=== PATIENT | female | born 1955 | race Caucasian/White ===

== ENCOUNTER 2023-02-06 08:22 | Outpatient (REF) | payer MEDICARE, SELFPAY | END 2023-02-06 08:23 | disposition home or self-care (01) | LOC: HO.HOSX 08:22 | PROVIDERS: Visit Provider Orthopaedic Surgery | DX: Z13.89 Encounter for screening for other disorder (principal) ==

== ENCOUNTER 2023-06-17 08:06 | Outpatient (REF) | payer MEDICARE, SELFPAY | END 2023-06-17 08:07 | disposition home or self-care (01) | LOC: HO.HOSX 08:06 | PROVIDERS: Visit Provider Orthopaedic Surgery | DX: Z13.89 Encounter for screening for other disorder (principal) ==

== ENCOUNTER 2023-07-22 14:31 | Outpatient (AMB) | payer MEDICARE, SELFPAY ==
--- NOTE | 2023-07-22 14:34 | MHC.OFFVIS ---
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 The patient did undergo right shoulder surgery approximately 2 years ago. She reports weakness when lifting her right hand above shoulder height. She has had injections in the past which gave her minimal relief. She has also done physical therapy exercises which aggravated her pain. She has tried Tylenol and anti-inflammatory medicines which gave her minimal relief. Allergies No Known Allergies Allergy (Verified 07/22/23 14:54) Medication List - Last Reconciled 07/23/23 by Zane Santo MD albuterol sulfate 90 mcg/actuation inhalation atorvastatin 40 mg PO DAILY fluticasone propionate 50 mcg/actuation sprays intranasal hydrochlorothiazide 25 mg PO DAILY lamotrigine mg PO lisinopril 10 mg PO DAILY methylphenidate HCl 20 mg PO TID omeprazole 20 mg PO DAILY ropinirole mg PO trazodone 150 - 300 mg PO BEDTIME PRN PFSH Surgical History History of hip surgery Hx of left knee surgery Hx of shoulder surgery Hx of shoulder surgery (Unknown) Social History (Updated 07/22/23 @ 15:00 by Lisa Parrish CMA) Patient Tobacco Use Status: Never used Tobacco Current occupational status: retired Current occupation: Left hand dominate Physical Exam Vital Signs: BMI result Body Mass Index 27.3 Const Other: Well-nourished well-developed very friendly female awake alert and oriented x3 in no acute distress Extrem Other: Bilateral upper extremity examination shows good capillary refill, no skin lesions noted, normal sensation light touch Right shoulder examination shows decreased range of motion when compared to her left shoulder, 4+/5 strength with supraspinatus testing, positive impingement signs, tenderness over her acromioclavicular joint, no instability Assessment & Plan Assessment & Plan (1) Right shoulder pain: Code(s): M25.511 - Pain in right shoulder Plan Ms. Albert presents with right shoulder pain and weakness possibly due to a full-thickness rotator cuff tear. Thus, I will send the patient for an MRI of her right shoulder to further evaluate the status of her rotator cuff tendons. I will see her back once the MRI is completed to discuss the findings and treatment options. She will continue with her range of motion exercises in the meantime to prevent stiffness. I spent 22 minutes in reviewing the patient's records and imaging studies, seeing the patient and documenting in the medical record. Orders: Orders XR shoulder RT min 2V 07/22/23 M25.511 - Pain in right shoulder MR shoulder RT wo con Today M75.101 - Unspecified rotator cuff tear or rupture of right shoulder, not specified as traumatic Coding Level of Care Code New Pt Level 2 (33941) Diagnoses Right shoulder pain M25.511
[2023-07-22 14:51] VITALS: BMI 27.3
== END 2023-07-22 15:10 | disposition home or self-care (01) ==
LOC: HO.HOS 14:31
PROVIDERS: Visit Provider Orthopaedic Surgery
DX: M25.511 Pain in right shoulder (principal)
CPT/HCPCS: 99202; 99212

== ENCOUNTER 2023-07-22 15:14 | Outpatient (REF) | payer MEDICARE, OTHER, SELFPAY ==
--- NOTE | ~2023-07-22 | XR_ITS ---
EXAMINATION: XR SHOULDER, RIGHT CLINICAL INFORMATION: Pain in right shoulder. COMPARISON: None available. TECHNIQUE: 2 views of the right shoulder. FINDINGS: Degenerative changes in the imaged upper thoracic spine. Hypertrophic spurring along the inferomedial aspect of the humeral head. Narrowing of the subacromial space. Acromioclavicular joint measures approximately 11 mm in width. XR/XR shoulder RT min 2V IMPRESSION: Hypertrophic spurring along the inferomedial aspect of the humeral head. Narrowing of the subacromial space.
== END 2023-07-22 15:15 | disposition home or self-care (01) ==
LOC: HO.HOSX 15:14
PROVIDERS: Visit Provider Orthopaedic Surgery
DX: M25.511 Pain in right shoulder (principal)
CPT/HCPCS: 73030; 99202

== ENCOUNTER 2023-08-07 13:16 | Outpatient (REF) | payer MEDICARE, OTHER, SELFPAY ==
--- NOTE | ~2023-08-07 | XR_ITS ---
EXAMINATION: XR KNEE, RIGHT CLINICAL INFORMATION: Pain. COMPARISON: None available. TECHNIQUE: Frontal, lateral and axial views of the right knee are submitted. FINDINGS: Bony alignment and mineralization are normal. The lateral and medial joint space compartment are well-maintained and show mild peripheral osteophyte formation. There is mild irregularity of the articular surfaces of the lateral and medial joint space compartments. There is moderate narrowing of the patellofemoral compartment, most pronounced laterally. There is peripheral osteophyte formation of the patellofemoral compartment. There is chondrocalcinosis. No fracture or dislocation is seen. There is a very small right knee joint effusion. No foreign body is seen. XR/XR knee RT 3V IMPRESSION: 1. There is mild osteoarthritic change of the lateral and medial joint to the right knee, and moderate osteoarthritic change is seen of the patellofemoral compartment. 2. There is a very small right knee joint effusion. 3. There is chondrocalcinosis, which can be associated with gout, CPPD or hypercalcemia.
== END 2023-08-07 13:17 | disposition home or self-care (01) ==
LOC: HO.HOSX 13:16
PROVIDERS: Visit Provider Orthopaedic Surgery
DX: M25.561 Pain in right knee (principal)
CPT/HCPCS: 20610; 73562; 99212; J1010; J1020

== ENCOUNTER 2023-08-07 13:16 | Outpatient (AMB) | payer MEDICARE, OTHER, SELFPAY ==
[2023-08-07 13:17] VITALS: BMI 27.3
--- NOTE | 2023-08-07 13:17 | MHC.OFFVIS ---
Intake Vital Signs 08/07/23 13:17 Height 5 ft 5 in Weight 164 lb BMI 27.3 Intake Visit Reasons: Newprob-Right knee pain-interested in injection Intake Note: Stephanie is a 68 year old female who presents with Right knee pain. Patient reports it has been going on for about 2 weeks and is a 5 on the 1-10 pain scale. She states she using Tylenol for arthritis for the pain and has had surgery on her Right knee in 1971, and denies injury and injections. She would like to have a Right knee injection today. She denies any locking or giving way. Allergies No Known Allergies Allergy (Verified 08/07/23 13:41) Medication List - Last Reconciled 08/08/23 by Zane Santo MD albuterol sulfate 90 mcg/actuation inhalation atorvastatin 40 mg PO DAILY fluticasone propionate 50 mcg/actuation sprays intranasal hydrochlorothiazide 25 mg PO DAILY lamotrigine mg PO lisinopril 10 mg PO DAILY methylphenidate HCl 20 mg PO TID omeprazole 20 mg PO DAILY ropinirole mg PO trazodone 150 - 300 mg PO BEDTIME PRN PFSH Surgical History History of hip surgery Hx of left knee surgery Hx of shoulder surgery Hx of shoulder surgery (Unknown) Social History Patient Tobacco Use Status: Never used Tobacco Current occupational status: retired Current occupation: Left hand dominate Physical Exam Vital Signs: BMI result Body Mass Index 27.3 Const Other: Well-nourished well-developed very friendly female awake alert and oriented x3 in no acute distress Extrem Other: Bilateral lower extremity examination shows good capillary refill, no skin lesions noted, normal sensation light touch Right knee examination shows a minimal effusion, mild crepitus with range of motion, discomfort with range of motion, no instability Office Procedures Joint Injection/Drain Joint Injection/Drain Primary Site: right knee Prep: site was prepped using aseptic technique Injected: 40 mg of, DepoMedrol and 1% plain lidocaine Procedure: The patient tolerated the procedure well Coding 10905 - Large joint Procedure code (CPT) selection complete Results Reviewed Results Reviewed: X-rays of the patient's right knee show mild to moderate diffuse joint space narrowing, no acute bony abnormalities Assessment & Plan Assessment & Plan (1) Right knee pain: Code(s): M25.561 - Pain in right knee Plan Ms. Albert presents with right knee pain due to degenerative joint disease. I had a lengthy discussion with the patient regarding the treatment options. She wishes to hold off on surgery for as long as possible. I agree with this plan. The risks and benefits of a right knee cortisone injection were discussed at length with the patient. The patient wished to proceed. She tolerated the injection well. She will continue with her activity modifications. She will follow up with me on an as-needed basis should her symptoms not plateau at an unacceptable level over the next few months. Feel free to call me at any time should questions regarding her orthopedic management arise. I spent 22 minutes in reviewing the patient's records and imaging studies, seeing the patient and documenting in the medical record. Orders: Orders XR knee RT 3V 08/07/23 M25.561 - Pain in right knee AMB Joint Injection/Aspiration 08/07/23 M25.561 - Pain in right knee Coding Level of Care Code Est Pt Level 2 (02627) Diagnoses Right knee pain M25.561 CPT Codes Coding - 83501 Large joint: 28805 - Large joint ([id number])
== END 2023-08-07 14:05 | disposition home or self-care (01) ==
PROVIDERS: Visit Provider Orthopaedic Surgery
DX: M25.561 Pain in right knee (principal)
CPT/HCPCS: 20610; 99213

== ENCOUNTER 2024-02-26 12:27 | Outpatient (REF) | payer MEDICARE, OTHER, SELFPAY | END 2024-02-26 12:28 | disposition home or self-care (01) | LOC: HO.HOSX 12:27 | PROVIDERS: Visit Provider Orthopaedic Surgery | DX: Z13.89 Encounter for screening for other disorder (principal) ==

== ENCOUNTER 2024-06-01 07:50 | Outpatient (AMB) | payer MEDICARE, OTHER, SELFPAY ==
--- NOTE | 2024-06-01 07:53 | MHC.OFFVIS ---
Intake Visit Reasons: INJ- rt knee injection last 08/07/23 Intake Note: Stephanie is a 69 year old female who presents today for a right knee steroid injection. Patient reports her last injection given 08/07/23 provided relief. The patient states that she has continued low back pain. She recently had her 3rd epidural injection. She states that she got minimal relief from the injection. She has started taking gabapentin once again. She takes the gabapentin twice a day. Allergies No Known Allergies Allergy (Verified 06/01/24 07:58) Medication List - Last Reconciled 06/01/24 by Zane Santo MD albuterol sulfate 90 mcg/actuation inhalation atorvastatin 40 mg PO DAILY fluticasone propionate 50 mcg/actuation sprays intranasal hydrochlorothiazide 25 mg PO DAILY lamotrigine mg PO lisinopril 10 mg PO DAILY methylphenidate HCl 20 mg PO TID omeprazole 20 mg PO DAILY ropinirole mg PO trazodone 150 - 300 mg PO BEDTIME PRN PFSH Surgical History History of hip surgery Hx of left knee surgery Hx of shoulder surgery Hx of shoulder surgery (Unknown) Social History Patient Tobacco Use Status: Never used Tobacco Current occupational status: retired Current occupation: Left hand dominate Physical Exam Extrem Other: Right knee examination shows a minimal effusion, mild crepitus with range of motion, negative Shola's test, no instability Office Procedures AMB Joint Injection/Aspiration Joint Injection/Aspiration Primary Site: right knee Injected: 40 mg of, DepoMedrol and 1% plain lidocaine Procedure: The patient tolerated the procedure well Coding 86514 - Large joint Procedure code (CPT) selection complete Assessment & Plan Assessment & Plan (1) Arthritis of right knee: Code(s): M17.11 - Unilateral primary osteoarthritis, right knee Category: Medical Plan Ms. Albert presents with right knee pain due to degenerative joint disease. The risks and benefits of a right knee cortisone injection were discussed at length with the patient. The patient wished to proceed. She tolerated the injection well. She will continue with her activity modifications. She wishes to hold off on surgery if at all possible. I agree with this plan. She will contact me prior to her follow-up appointment in 3 months should any questions or concerns arise. I spent 20 minutes in reviewing the patient's records and imaging studies, seeing the patient and documenting in the medical record. Orders: Orders AMB Joint Injection/Aspiration Today M17.11 - Unilateral primary osteoarthritis, right knee Coding Level of Care Code Est Pt Level 3 (08223) Complex EM visit Add On G2211 Diagnoses Arthritis of right knee M17.11 CPT Codes Coding - 02131 Large joint: 32818 - Large joint ([id number])
--- OUTSIDE RECORDS SUMMARY | 2024-06-01 07:53 | XMS_ITS | Clinical Summary ---
Author Organization [facility] Address [address] [place] [address] Care Team Providers Care Outdoor Studies Director Name Role Phone Paige Zafar Primary Care Provider + [phone] Allergies No known active allergies Medications Medication Sig Dispensed Refills Start Date End Date Status PROAIR HFA 108 (90 BASE) MCG/ACT inhaler 0 12/25/2016 Active gabapentin (NEURONTIN) 300 MG capsule 0 10/08/2016 Active hydrochlorothiazid e (HYDRODIURIL) tablet 25 mg 0 12/31/2016 Active lisinopril (PRINIVIL,ZESTRIL) tablet 10 mg 0 10/23/2016 Active LORazepam (ATIVAN) 1 MG tablet Take 1 mg by mouth 3 (three) times a day as needed. for anxiety 2 12/20/2016 Active traZODone (DESYREL) 150 MG tablet 0 10/23/2016 Active atorvastatin (LIPITOR) tablet 40 mg atorvastatin 40 mg tablet 0 Active cloNIDine (CATAPRES) tablet 0.1 mg clonidine HCl 0.1 mg tablet 0 Active fluticasone (FLONASE) 50 MCG/ACT nasal spray fluticasone 50 mcg/actuation nasal spray,suspension 0 Active valACYclovir (VALTREX) 1000 MG tablet valacyclovir 1 gram tablet Take 2 tablets every 12 hours by oral route as directed for 1 day. 0 Active Omeprazole 20 MG TBEC omeprazole 20 mg capsule,delayed release TAKE 2 CAPSULE(S) EVERY DAY BY ORAL ROUTE IN THE MORNING. 0 Active methylphenidate (RITALIN) 20 MG tablet TAKE 1/2 TO 1 TABLET BY MOUTH EVERY MORNING. TAKE 1/2 TO 1 TABLET BY MOUTH AT 1PM IF NEEDED FOR ADHD 0 09/28/2019 Active rOPINIRole (REQUIP) 2 MG tablet TAKE 1 TABLET IN AM AND 2 TABLETS EVENING BY MOUTH 0 09/29/2019 Active amoxicillin (AMOXIL) 500 MG tablet Take 4 tabs one hour prior to dental appointment or colonoscopy 20 tablet 3 10/03/2021 Active Additional Information Patient not taking.Reason: only prior to dental work, Reported on 04/04/2022 venlafaxine (EFFEXOR-XR) 150 MG 24 hr capsule 0 12/31/2021 Active celecoxib (CeleBREX) 200 MG capsule Take 1 capsule (200 mg total) by mouth daily. 0 06/12/2022 Active methocarbamol (ROBAXIN) 750 MG tablet Take 1 tablet (750 mg total) by mouth every 8 (eight) hours as needed. for spasm 0 06/12/2022 Active oxyCODONE (ROXICODONE) 5 MG immediate release tablet 1-2 tabs p.o. every 6-8 hours as needed for pain. 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 Chronic left shoulder pain 07/04/2017 Left hip pain 02/04/2017 Family History Medical History Relation Name Comments Heart disease Mother Hypertension Mother Relation Name Status Comments Mother Social History Tobacco Use Types Packs/Day Years Used Date Smoking Tobacco: Former Tobacco Cessation:Counseling Given: Not Answered Alcohol Use Standard Drinks/Week Comments Yes 0 (1 standard drink = 0.6 oz pur e alcohol) Sex and Gender Information Value Date Recorded Sex Assigned at Female 02/12/2022 2:23 PM EDT Gender Identity Female 02/12/2022 2:23 PM EDT Sexual Orientation Not on file Job Start Date Occupation Industry Not on file Not on file Not on file Last Filed Vital Signs Vital Sign Reading Time Taken Comments Blood Pressure 160/84 04/04/2022 8:45 AM EST Pulse 96 04/04/2022 8:45 AM EST Temperature - - Respiratory Rate - - Oxygen Saturation - - Inhaled Oxygen Concentration - - Weight 79.2 kg (174 lb 9.6 oz) 04/04/2022 8:45 A M EST Height 162.6 cm (5' 4 ) 04/04/2022 8:45 AM EST Body Mass Index 29.97 04/04/2022 8:45 AM EST Plan of Treatment Health Maintenance Due Date Last Done Comments Hepatitis C Screening 1957 Depression Screening 1969 BMI Counseling 1975 Preventative Health Evaluation 1975 Colon Cancer Screening (Colonoscopy) 2002 Breast Cancer Screening (Mammogram) 2007 Fall Risk Assessment 2022 Osteoporosis Screening (DEXA Scan) 2022 COVID-19 Vaccine ( season) 2024 02/04/2021, 07/23/2020, 07/01/2020 Influenza Vaccine (#1) 2024 , 02/25/2020, 01/01/2019, Additional history exists RSV Adult > 60+ Yrs or (1 - 1-dose 75+ series) 2032 DTap / Tdap / Td (3 - Td or Tdap) 07/18/2032 07/18/2022, 12/14/2012 Shingrix-Zoster Vaccine Completed 02/25/2020, 01/01 Pneumococcal Vaccine Completed 07/18/2022, 01/22/20 17 Hepatitis B Vaccines Aged Out No long er eligible based on patient's age to complete this topic RSV Ped < 20 months Aged Out No longe r eligible based on patient's age to complete this topic Care Teams Outdoor Studies Director Relationship Specialty Start Date End Date Paige Zafar [place] [address] [address] PCP - General Physician Farm Tractor Operator 12/17/16
--- OUTSIDE RECORDS SUMMARY | 2024-06-01 07:53 | XMS_ITS | Data Portability ---
Author Organization [facility], [address] Address [address] [place] [address] Assessment No assessment recorded. Plan of Treatment Reminders Order Date Submit Date Provider Last Modified By Organization Details Last Modified Time Details Appointments None recorded. Lab None recorded. Referral None recorded. Procedures None recorded. Surgeries None recorded. Imaging None recorded. Medication Orders Allergy Relief (fluticason e) 50 mcg/actuati on nasal spray,suspe nsion [address] [id number] [address], [place], [address], 3 19:21:32 prednisone 20 mg tablet [address] [id number], [address], [place], [address], 3 19:21:31 albuterol sulfate HFA 90 mcg/actuati on aerosol inhaler [address] [id number] [address], [place], [address], 3 19:21:32 benzonatate 100 mg capsule [address] [id number] [address], [place], [address], 3 19:21:32 Patient TargetsNo targets recorded. Patient Instructions Encounter Date Encounter Id Patient Instructions Last Modified By Organization Details Last Modified Time 12/22/2022 [id number] cough: care instructions [email or web address] Not available 12/22/2022 19:21:28 Patient instruct ed on worsening signs and symptoms that would require further evaluation by ED or PCP such as fever of 101.0 or greater, congestion accompanied with coughing, vomiting, diarrhea, abdominal pain, decreased oral intake, lethargy, or other new symptom(s) experienced not discussed during this visit. Use humidifier and ensure good hydration. If you experience new concerning symptoms, shortness of breath, respiratory distress, or chest pain go to the ER. Use the medications prescribed. May use Decongestants if tolerated and no history of elevated blood pressure or Diabetes. Use saline nasal saline and Flonase daily for1 week. You may use tylenol for pain/fever. Do not take prednisone with Ibuprofen. Get some extra rest. When should you call for help? Call anytime you think you may need emergency care. For example, call if: You have severe trouble breathing. Call your doctor now or seek immediate medical care if: You have new or worse trouble breathing. You cough up dark brown or bloody mucus (sputum). You have a new or higher fever. You have a new rash. Watch closely for changes in your health, and be sure to contact your doctor if: You cough more deeply or more often, especially if you notice more mucus or a change in the color of your mucus. You are not getting better as expected. [email or web address] Not available 12/22/2022 19:21:26 Reason for Referral None Reported. Problems Name Problem SNOMED Code Status Onset Date Resolution Date Notes Provider Name and Address Organization Details Recorded Time Hyperlipidemia 52804825 Active 2022 ADIA porter PA - [facility] 3 18:37:29 Hypertensive disorder 19143590 Active 2022 ADIA porter PA - [facility] 3 18:37:34 Restless legs 13498544 Active 2022 ADIA porter PA - [facility] 3 18:37:39 Exercise-induce d asthma 59549486 Active 2022 ADIA porter PA - [facility] 3 18:37:55 Problem Notes None recorded. Procedures Surgical History Date Name Laterality Status Provider Name and Address Organization Details Recorded Time procedure on knee completed ADIA BURCH PA - [facility] 12/22/2022 18:38:42 [facility] 12/22/2022 18:38:52 procedure on shoulder completed TRENT BURCH PA - [facility] 12/22/2022 18:39:11 Imaging Results None recorded. Procedure Notes None recorded. Medical Equipment None Reported. Allergies No known drug allergies Medications Name Sig Start Date Stop Date Status Note LastModified by Organization Details LastModified Time prednisone 20 mg tablet Take 2 tablets every day by oral route in the morning for 3 days. 2022 active Not Available Not Available Not Avai lable benzonatate 100 mg capsule Take 1 capsule 3 times a day by oral route as needed for 7 days. 2022 active Not Available Not Available Not Avai lable albuterol sulfate HFA 90 mcg/actuatio n aerosol inhaler INHALE 2 PUFFS EVERY 4 TO 6 HOURS NEEDED FOR 10 DAYS active Not Available Not Available No t Available fluticasone propionate 50 mcg/actuatio n nasal spray,suspen emmy SPRAY 1 SPRAY INTO EACH NOSTRIL EVERY DAY DIRECTED FOR 30 DAYS FOR ALLERGY SYMPTOMS active Not Available Not Available No t Available atorvastatin active Not Available Not Available Not Available ropinirole active Not Available Not Av ailable Not Available hydrochlorot hiazide active Not Available Not Available Not Available lisinopril active Not Available Not Av ailable Not Available albuterol sulfate 90 mcg/actuatio n breath activated powder inhaler INHALE 2 PUFFS (180 MCG) BY INHALATION ROUTE EVERY 4-6 HOURS NEEDED active Not Available Not Available No t Available Vitals Date Recorded Body height Provider Name an d Address Organization Details Last Updated DateTime 12/22/2022 167.64 cm ADIARACHEL KRISHNAMURTHYEY PA - [facility] 0 12/22/2022 18:36:26 Date Recorded Body mass index (BMI) Body weight Provider Name and Address Organization Details Last Updated DateTime 12/22/2022 25.5 kg/m2 89317.59 g ADIARACHEL KRISHNAMURTHYEY PA - [facility] 12/22/2022 18:36:29 Date Recorded Pain severity - 0-10 verbal numeric rating [Score] - Reported Provider Name and Address Organization Details Last Updated DateTime 12/22/2022 0 ADIA BURCH PA - [facility] 0 12/22/2022 18:36:33 Date Recorded Respiratory rate Provider Name a nd Address Organization Details Last Updated DateTime 12/22/2022 17 /min ADIA BURCH PA - [facility] 0 12/22/2022 18:39:55 Date Recorded Oxygen saturation Oxygen saturation in Arterial blood by Pulse oximetry Provider Name and Address Organization Details Last Updated DateTime 12/22/2022 100 % 100 % ADAI BURCH PA - [facility] 12/22/2022 18:40:48 Date Recorded Heart rate Provider Name an d Address Organization Details Last Updated DateTime 12/22/2022 76 /min ADIA BURCH PA - [facility] 0 12/22/2022 18:40:04 Date Recorded Body temperature Provider Name a nd Address Organization Details Last Updated DateTime 12/22/2022 97.9 [degF] ADIA BURCH PA - [facility] 12/22/2022 18:40:46 Date Recorded Systolic blood pressure Diastolic blood pressure Provider Name and Address Organization Details Last Updated DateTime 12/22/2022 153 mm[Hg] 89 mm[Hg] ADIA BURCH PA - [facility] 12/22/2022 18:40:11 Social History Question Answer Notes LastModified by Organizat ion Details LastModified Time Tobacco Smoking Status Former Smoker ADIA porter, PA - [facility] 12/22/2022 18:38:14 What Is Your Level Of Alcohol Consumption? Occasional [email or web address] Information not available 12/22/2022 When Did You Quit Smoking? 16+yearssincel astcigarette [email or web address] Information not available 12/22/2022 Do You Use Any Illicit Or Recreational Drugs? No [email or web address] Information not available 12/22/2022 Have You Recently Traveled Abroad? No [email or web address] Information not available 12/22/2022 Sex: Unknown Functional Status None recorded. Mental Status None recorded. Family History Nothing Reported. Medical History No medical history recorded. Gynecological History Statement/Question Response Is there any chance of ? No Obstetrics History GPAL:G 0 P 0 0 0 0 Past Encounters Encounter ID Performer Location Encounter Start Date Encounter Closed Date Diagnosis/Indication Diagnosis SNOMED-CT Code Diagnosis ICD10 Code Diagnosis Note [id number] [address] [place], [place] [address] 2018 11:32:21 2018 12:21:38 [id number] [address] [facility] [place] [place] [address] 04/13/2018 15:55:10 04/13/2018 17:12:50 [id number] [address] [facility] [place] [place] [address] 02/21/2017 15:35:25 02/21/2017 16:51:22 [id number] [address] [facility] [place] [place] [address] 04/16/2015 13:47:23 04/16/2015 15:39:47 [id number] [address] [facility] [place] [place] [address] 05/06/2018 16:43:14 05/06/2018 17:35:59 [id number] [address] [facility] [place] [place] [address] 03/17/2021 17:48:47 03/17/2021 18:50:23 [id number] [facility] [place] [place] [address] 09/02/2019 11:08:21 09/02/2019 11:52:06 [id number] [address] [facility] [place] [place] [address] 06/01/2018 08:12:01 06/01/2018 09:52:26 [id number] [address] [facility] [place] [place] [address] 10/05/2016 19:26:21 10/05/2016 19:42:32 [id number] [address] [facility] [place] [place] [address] 12/05/2018 15:48:07 12/05/2018 17:08:43 [id number] [address] [place] [address] 06/09/2015 12:04:16 06/09/2015 13:10:05 [id number] [address] [place] [address] 01/01/2019 15:22:45 01/01/2019 16:34:34 [id number] Tree Bowman [facility] [address] [place] [address] 12/22/2022 18:08:41 12/22/2022 19:22:02 Acute bronchitis 32867626 J20.9 Health Concerns Section Related Observation LastModified by Organization Detai ls LastModified Time None Recorded Concern Status LastModified by Organization Details LastModified Time None Recorded Advance Directives Directive None Recorded Payers Encounter Date Sequence Insurance Name Policy Number Policy Rogers Covered Member ID Rogers Member ID Guarantor Name 09/02/2019 2 [employer] - [employer] ([place]) [id number] 2 Temo Albert [id number] Stephanie Albert 03/17/2021 2 [employer] [place]) [id number] 2 Temo Albert [id number] Stephanie Albert 12/22/2022 1 [place]: [facility] Stephanie Albert [id number] Stephanie Albert 12/22/2022 2 [employer] - [facility] (PPO) [id number] 2 Temo Albert [id number] Stephanie Albert Notes Date Note Type Note Provider Name and Address Organization Details Recorded Time 3 text/html CoughReported bypatient.source of patient informationInformation obtained from patient; Patient arrived at Urgent Care ambulatory; learning styles: auditory Quality:harsh;dry; intermittent; symptoms worse with lying down Severity:worsening;pain with cough; moderate Duration:constant; symptoms lasting over 2 weeks Timing:worsening; gradual Context:Patient denies vaping; non-smoker;history of bronchitis Modifying Factors:at night Associated Symptoms:no fever; no chills; no chest pain; no heartburn; no nausea; no vomiting; no edema; no agitation; no wheezing; no post nasal drip;hurts to breath Tree Bowman NP [address] [place], [address], PA - [facility] 12/22/2022 19:21:51 OBGyn Episode No OBEpisode recorded.
--- OUTSIDE RECORDS SUMMARY | 2024-06-01 07:53 | XMS_ITS | Clinical Summary ---
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
--- OUTSIDE RECORDS SUMMARY | 2024-06-01 07:54 | XMS_ITS | Data Portability ---
Author Organization [place] [facility] Address [address] [place] [id number] Care Team Providers Care Framing And Hanging Name Role Phone EMIR CHE Primary Care Provider Assessment Encounter Date Assessment Date Assessment LastModified by Organization Details LastModified Time 05/18/2018 05/18/2018 63 year old, female, with c/o left side facial pain with a focus on the left ear area. Pt states about 1 month ago she was dx with bronchitis and was prescribed prednisone. She states she was not getting better so she went back and was placed on additional course of prednisone. 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 Pt has now been home a few days, She is off antiviral and steroid therapy but is having this left side facial pain and ear pain that has continued. She is also experiencing muffled hearing in both ears but worse on the left. She denies drainage from ear, fever, swelling of face, redness, or additional concerns. Pt does report bells palsy symptoms have improved. She can now smile without obvious dropping, she is able to close the left eye lids as well. Exam: Pt noted to be walking around home upon arrival of staff. Pt dog was home and barking. Pt in NAD. A&O X3. Vital signs stable. Physical exam shows mild erythema to Bilateral EAC's, TM's injected with bulging L>R, no mastoid tenderness or erythema, no pain with palpation to the auricle of the ear. Pt still has mild left side droop to smile but reports much improved, no additional neurologic deficits. Able to close both eyes with ease. Physical exam otherwise unremarkable. DDx: ear infection, mastoiditis, trigeminal neuralgia, bells palsy, temporal arteritis working x: left side facial pain, left OM plan: -Please take antibiotics as prescribed -Follow up with primary care this coming friday as scheduled -Recommend warm compresses to affected area -Try to stay in ouf of the cold -Monitor for increased ear pain, fevers, loss of hearing, discharge from ear, or additional concerns, if this occurs please consult healthcare provider immediately -Do not stick anything in ears -Please take tylenol or motrin as directed on bottle for pain relief I discussed the patient case with Dr. Hammer and under their direction they prescribed the following medications: Amoxicillin 500mg 1 tab PO TID X 7 days, no refills MDM: At this time pt will be placed on abx for extra precaution given possible OM. She had recent imaging of head so this should r/o temporal arteritis. I discussed with pt that she has already been on antiviral and prednisone for the [place] Palsy, additional steroids may not be helpful. We did discuss need for f/u and consider MRI for trigeminal neuralgia if pain worsens but given pain only present most of the time in the evenings this is not likely. She has f/u with pcp on Friday where she can discuss if abx are working and if not perhaps consider ENT referral or additional imaging. Pt agrees with plan of care. I did discuss case with Dr. Ana Hammer and she agrees with plan. Time On Scene with Patient: 00:32:51 Not available 05/18/2018 13:16:36 Plan of Treatment Reminders Order Date Submit Date Provider Last Modified By Organization Details Last Modified Time Details Appointments None record ed. Lab None record ed. Referral None record ed. Procedures None record ed. Surgeries None record ed. Imaging None record ed. Medication Orders None record ed. Patient TargetsNo targets recorded. Patient Instructions Encounter Date Encounter Id Patient Instructions Last Modified By Organization Details Last Modified Time 05/18/2018 [id number] -Please take antibiotics as prescribed -Follow up with primary care this coming friday as scheduled -Recommend warm compresses to affected area -Try to stay in ouf of the cold -Monitor for increased ear pain, fevers, loss of hearing, discharge from ear, or additional concerns, if this occurs please consult healthcare provider immediately -Do not stick anything in ears -Please take tylenol or motrin as directed on bottle for pain relief Not available 05/18/2018 11:19:30 Reason for Referral None Reported. Problems Name Problem SNOMED Code Status Onset Date Resolution Date Notes Provider Name and Address Organization Details Recorded Time Hypertensive disorder 52960223 Active 2018 MILA PARRA NP [address], [place], [address], [place] [facility] 9 10:59:28 Chronic back pain 580830396 Active 2018 MILA PARRA NP [address], [place], [address], [place] [facility] 9 10:59:35 Gatica's esophagus 889227506 Active 2018 MILA PARRA NP [address], [facility] [place], [address], [place] [facility] 9 10:59:40 Hyperlipidem ia 11069786 Active 2018 MILA PARRA NP [address], [place], [address], [place] [facility] 9 10:59:44 Problem Notes None recorded. Medical Equipment None Reported. Allergies No known drug allergies Medications Name Sig Start Date Stop Date Status Note LastModified by Organization Details LastModified Time gabapentin 600 mg tablet 05/18 completed Not Available Not Available Not Available prednisone 20 mg tablet 05/18 completed Not Available Not Available Not Available cromolyn 4 % eye drops 05/18 completed Not Available Not Available Not Available venlafaxine ER 150 mg capsule,extended release 24 hr active Not Available Not Availabl e Not Available valacyclovir 500 mg tablet 05/18 completed Not Available Not Available Not Available simvastatin 40 mg tablet active Not Available Not Available No t Available benzonatate 100 mg capsule active Not Available Not Available N ot Available ropinirole 2 mg tablet active Not Available Not Available Not Available pantoprazole 40 mg tablet,delayed release active Not Available Not Available Not Available trazodone 150 mg tablet active Not Available Not Available Not Available lisinopril 10 mg tablet active Not Available Not Available Not Available polymyxin B sulfate 10,000 unit-trimethopri m 1 mg/mL eye drops 05/18 completed Not Available Not Available Not Available omeprazole 20 mg capsule,delayed release active Not Available Not Available Not Available hydrochlorothiaz kala 25 mg tablet active Not Available Not Avail able Not Available lorazepam 1 mg tablet active Not Available Not Available Not Available cyclobenzaprine 5 mg tablet active Not Available Not Available Not Available ProAir HFA 90 mcg/actuation aerosol inhaler active Not Available Not Availa ble Not Available Afluria Quad (PF) 60 mcg (15 mcg x 4)/0.5 mL IM syringe active Not Available Not Available Not Available Vitals Date Recorded Body temperature Heart rate Respiratory rate Oxygen saturation Oxygen saturation in Arterial blood by Pulse oximetry Systolic blood pressure Diastolic blood pressure Provider Name and Address Organization Details Last Updated DateTime 9 98.5 [degF] 100 /min 16 /min 97 % 97 % 144 mm[Hg] 78 mm[Hg] Not Available [facility] 9 11:05:23 Social History Question Answer Notes LastModified by Organizat ion Details LastModified Time Tobacco Smoking Status Former Smoker MILA PARRA, [place] [address] [place], [address], [place] [facility] 05/18/2018 11:02:58 Within The Past 12 Months, Has It Happened That The Food You Bought Just Didn't Last And You Didn't Have Money To Get More. Normal Information not available 05/18/2018 Within The Past 12 Months, Have You Worried That Your Food Would Run Out Before You Got Money To Buy More. Yes Information not available 05/18/2018 Fall Risk: Do You Feel Unsteady When Standing Or Walking? No Information not available 05/18/2018 What Was The Date Of Your Most Recent Tobacco Screening? 05/18/2018 Information not available 11/26/2018 Sex: Unknown Functional Status None recorded. Mental Status None recorded. Family History Relationship Description Onset Age of this Age Resolved Age Notes LastModified by Organization Details LastModified Time Mother Atrial fibrillation Not available 11:03:31 Brother Chronic kidney disease Not available 2018 11:03:41 Medical History Condition Response Diabetes N Coronary Artery Disease N Cancer N Stroke N Depression N COPD N Asthma N High Cholesterol Y Pulmonary Embolism N Hypertension Y Kidney Disease N Gynecological HistoryNo gynecological history recorded. Obstetrics History GPAL:G 0 P 0 0 0 0 Past Encounters Encounter ID Performer Location Encounter Start Date Encounter Closed Date Diagnosis/Indication Diagnosis SNOMED-CT Code Diagnosis ICD10 Code Diagnosis Note [id number] MILA PARRA NP [facility] [address] [place] [address] 05/18/2018 10:37:28 05/22/2018 18:52:51 Acute upper respiratory infection 44419130 J06.9 Otitis media 98634030 H6 6.92 start amoxicilli n 500mg TID PO X 7 days, #21 no refills Pain in face 43018423 R5 1 Health Concerns Section Related Observation LastModified by Organization Detai ls LastModified Time None Recorded Concern Status LastModified by Organization Details LastModified Time None Recorded Advance Directives Directive None Recorded Payers Encounter Date Sequence Insurance Name Policy Number Policy Rogers Covered Member ID Rogers Member ID Guarantor Name 05/18/2018 1 [facility] [id number] Stephanie Albert [id number] Stephanie Albert Notes Date Note Type Note Provider Name and Address Organization Details Recorded Time 05/18/2018 text/html 63 year old, female, with c/o left side facial pain with a focus on the left ear area. Pt states about 1 month ago she was dx with bronchitis and was prescribed prednisone. She states she was not getting better so she went back and was placed on additional course of prednisone. 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 Pt has now been home a few days, She is off antiviral and steroid therapy but is having this left side facial pain and ear pain that has continued. She is also experiencing muffled hearing in both ears but worse on the left. She denies drainage from ear, fever, swelling of face, redness, or additional concerns. Pt does report bells palsy symptoms have improved. She can now smile without obvious dropping, she is able to close the left eye lids as well. MILA PARRA NP [address], [place], [address], [place] [facility] 05/18/2018 13:17:17 OBGyn Episode No OBEpisode recorded.
--- OUTSIDE RECORDS SUMMARY | 2024-06-01 07:54 | XMS_ITS | Clinical Summary ---
Author Organization [facility] Address [address] [place] [address] Care Team Providers Care Directional Survey Drafter Name Role Phone Timothy Rios Primary Care Provider Unavailabl e Active Problems Problem Noted Date Diagnosed Date Shoulder pain 04/26/2015 Social History Tobacco Use Types Packs/Day Years Used Date Smoking Tobacco: Never Assessed Comments Unknown Sex and Gender Information Value Date Recorded Sex Assigned at Not on file Legal Sex Female 4:12 PM EDT Gender Identity Not on file Sexual Orientation Not on file Plan of Treatment Health Maintenance Due Date Last Done Comments Hepatitis C Screening 1955 DTaP/Tdap/Td (1 - Tdap) 1975 Mammogram/Breast Imaging 1997 Pneumococcal 50+ years (1 of 1 - PCV) 2007 Zoster (Shingrix) (1 of 2) 2007 Bone Density 2022 COVID-19 Vaccine ( - 2023-2 5 season) 2024 Influenza (#1) 2024 RSV (1 - 1-dose 75+ series) 2032 HPV Vaccine Aged Out No longer eligi ble based on patient's age to complete this topic Hep A Aged Out No longer eligi ble based on patient's age to complete this topic Hep B Aged Out No longer eligi ble based on patient's age to complete this topic Hib Aged Out No longer eligi ble based on patient's age to complete this topic Meningococcal ACWY Aged Out No longer eligible based on patient's age to complete this topic Pap Smear Discontinued Zoster (Zostavax) Discontinued Care Teams Directional Survey Drafter Relationship Specialty Start Date End Date Timothy Rios PCP - General 12/09/22
--- OUTSIDE RECORDS SUMMARY | 2024-06-01 07:54 | XMS_ITS | Data Portability ---
Author Organization [facility], Main Office Address [address] [facility] [address] [place] [id number] Care Team Providers Care Manhole Stripper Name Role Phone [facility] OTHER EMIR ZAFAR Primary Care Provider HELENA MAK In Flight Technician [phone] MARIJA GARCIA Claim Clerk [phone] KYLE SANTOS Physical Therapist VENKATA COLEMAN Neuropsychiatrist CAITIE GLASS Orchestra Teacher TIM TUBBS Orthopedic Surgeon [phone] [facility] DERMATOLOGY Cobol Engineer [phone] BRIGID BOONE Phys. Med. [facility] Phys. [facility] Rehab JEANNA GOLDEN Psychiatrist Assessment Encounter Date Assessment Date Assessment LastModified by Organization Details LastModified Time 10/07/2021 10/07/2021 This service was provided using telemedicine. Patient consented to telephone visit Patient was located in the [facility]. Provider was located in the office. No other persons participated in the telemedicine visit except for the patient unless otherwise indicated here. {{}} Total time of visit was 18 minutes. chau Not available 10/07/2021 14:24:43 02/01/2023 02/01/2023 This service was provided using telemedicine. Patient consented to video & audio visit Patient was located in the [facility]. Provider was located in the office. No other persons participated in the telemedicine visit except for the patient unless otherwise indicated here. {{}} Total time of visit was 15 minutes. [email or web address] Not available 02/01/2023 11:17:43 Plan of Treatment Reminders Order Date Submit Date Provider Last Modified By Organization Details Last Modified Time Details Appointments None recor ded. Lab CBC w/ auto diff 2020 021 RAMIRO [facility], [address], [address], [place], [address], 1 10:07:56 lipid panel , serum 2020 021 [email or web address] [facility], [address], [address], [place], [address], 1 12:33:11 CMP, serum or plasm a 2020 021 [facility], [address], [address], [place], [address], 1 12:33:11 hepat itis C virus Ab, serum 2020 021 RAMIRO [facility], [address], [address], [place], [address], 1 10:07:57 CMP, serum or plasm a 2022 023 [email or web address] [facility], [address], [address], [place], [address], 3 14:10:15 lipid panel , serum 2022 023 [email or web address] [facility], [address], [address], [place], [address], 3 14:10:15 TSH, serum or plasm a 2022 023 [email or web address] [facility], [address], [address], [place], [address], 3 14:10:15 CBC w/ auto diff 2022 023 RAMIRO [facility], [address] [place] [address], [facility] [address], [place], [address], 4 06:08:12 CMP, serum or plasm a 2023 024 [email or web address] [facility], [address] [place] [address], [facility], [place], [address], 5 10:16:23 lipid panel , serum 2023 024 [email or web address] [facility], [address] [place] [address], [facility], [place], [address], 5 10:16:23 nonin vasiv e color ectal cance r DNA + occul t blood antoni brown, QL, stool 2023 024 [place] [facility] (Cologuard Orders Only), [address], [address], [place], [address], 4 05:50:58 Referral gastr rex aguilera ist refer ral - Needs colon cance r mabel rivera patijuancarlos nt, last done 2012 023 [email or web address] [facility] Gastroenterology Scheduling Department, [address] [place] [address], [address], 3 10:06:37 Procedures None recor ded. Surgeries None recor ded. Imaging MAMMO , antoni brown, bilat eral - Perfo rm Diagn ostic Mammo gram and Breas t Ultra sound if neede d / Perfo rm Ultra sound Guide d Aspir ation and/o r Breas t Biops y if warra nted 2020 021 [facility] Radiology, [address] [place] [address], [address], 1 10:25:54 MAMMO , scree kevin, bilat eral - Perfo rm Diagn ostic Mammo gram and Breas t Ultra sound if neede d / Perfo rm Ultra sound Guide d Aspir ation and/o r Breas t Biops y if warra nted 2022 023 [email or web address] [facility] Imaging Orders, [address], [address], [place], [address], 3 10:10:31 MAMMO , scree kevin, bilat eral - Perfo rm Diagn ostic Mammo gram and Breas t Ultra sound if neede d / Perfo rm Ultra sound Guide d Aspir ation and/o r Breas t Biops y if warra nted 2023 024 [email or web address] [facility] Imaging Orders, [address], [address], [place], [address], 4 16:17:02 Medication Orders ProAi r HFA 90 mcg/a ctuat ion aeros ol inhal er 2020 021 [facility]/Pharmacy #1542, [address], [place], [address], 1 10:07:47 gabap entin 300 mg capsu le 2020 021 hiren e [facility]/Pharmacy #2093, [address], [place], [address], 3 10:48:50 Paxlo vid 300 mg (150 mg x 2)-10 0 mg table ts in a dose pack 2021 022 bssalovanpenny os [facility]/Pharmacy #5644, [address], [place], [address], 4 15:32:51 panto prazo le 40 mg table t,del ayed relea se 2022 023 [facility]/Pharmacy #0517, [address], [place], [address], 3 10:50:35 atorv astat in 40 mg table t 2022 023 [facility]/Pharmacy #0517, [address], [place], [address], 3 10:47:58 gabap entin 100 mg capsu le 2022 023 [facility]/Pharmacy #0517, [address], [place], [address], 3 10:48:45 albut antoinette sulfa te HFA 90 mcg/a ctuat ion aeros ol inhal er 2022 023 RAMIRO [facility]/Pharmacy #0517, [address], [place], [address], 3 09:46:20 hydro chlor othia zide 25 mg table t 2022 023 [facility]/Pharmacy #0517, [address], [place], [address], 3 10:48:56 lisin opril 10 mg table t 2022 023 [email or web address] [facility]/Pharmacy #0517, [address], [place], [address], 4 15:56:09 Paxlo vid 300 mg (150 mg x 2)-10 0 mg table ts in a dose pack 2022 023 bsolivanmatt os [facility]/Pharmacy #0517, [address], [place], [address], 4 15:32:51 Lauryn janet Perle s 100 mg capsu le 2022 023 bsolivanmatt os [facility]/Pharmacy #0517, [address], [place], [address], 4 15:32:19 loraz epam 0.5 mg table t 2023 024 [facility]/Pharmacy #0517, [address], [place], [address], 4 15:57:58 melox icam 15 mg table t 2023 024 [facility]/Pharmacy #0517, [address], [place], [address], 4 16:08:28 lisin opril 10 mg table t 2023 024 [facility] [address], [place], [address], 4 15:57:56 omepr azole 20 mg capsu le,de layed relea se 2023 024 [facility]/Pharmacy #0517, [address], [place], [address], 4 16:02:51 valac yclov ir 1 gram table t 2023 024 [facility]/Pharmacy #0517, [address], [place], [address], 4 15:57:59 atorv astat in 40 mg table t 2023 024 [facility]/Pharmacy #0517, [address], [place], [address], 4 16:10:00 albut antoinette sulfa te HFA 90 mcg/a ctuat ion aeros ol inhal er 2023 024 [facility]/Pharmacy #0517, [address], [place], [address], 15:57:59 Patient TargetsNo targets recorded. Patient Instructions Encounter Date Encounter Id Patient Instructions Last Modified By Organization Details Last Modified Time 08/31/2020 [id number] call or return for any concerns. [email or web address] Not available 08/10/2020 10:46:25 10/07/2021 [id number] high cholesterol: care instructions [email or web address] Not available 10/07/2021 14:31:00 07/18/2022 [id number] learning about colon cancer jthabet Not available 07/18/2022 09:47:49 call or return for worsening or concerns jthabet Not available 07/18/2022 09:48:35 02/01/2023 [id number] 10 things to do when you have covid-19 [email or web address] Not available 02/01/2023 11:16:47 10/23/2023 [id number] depression treatment: care instructions jthabet Not available 10/23/2023 16:02:02 wilson's esophagus: care instructions jthabet Not available 10/23/2023 16:02:02 preventing falls: care instructions jthabet Not available 10/23/2023 15:57:52 well visit, over 65: care instructions jthabet Not available 10/23/2023 15:57:51 learning about colon cancer jthabet Not available 10/23/2023 15:57:51 colon cancer screening: care instructions jthabet Not available 10/23/2023 16:01:36 To call or return for worsening or concerns jthabet Not available 09/24/2023 14:06:53 Reason for Referral Claim Clerk Referral for Screening for malignant neoplasm of colon Needs colon cancer screening, new patient, last done 2012 Referring Physician: Emir Zafar, Family Medicine, Encounter Date: 07/18/2022 Results Created Date Observation Date Name Description Value Unit Range Abnormal Flag Note LastModifiedBy Organization Detail LastModifiedTime 05/02/20 21 05/02/2021 COVID -19 (NOVE L CORON AVIRU S) PCR covid-19 PCR specimen source NASAL Not Available [facility] [address] [place], [address], 05/03/2021 16:22:49 05/02/20 21 05/03/2021 COVID -19 (NOVE L CORON AVIRU S) PCR covid-19 PCR result (neg) normal NEGAT DERRICK 2019- novel Coron aviru s (2019 -nCoV ) not detec ginny by real- time RT-PC R. Note: If clini griselda suspi cion for COVID -19 is high, antonio nue to maint ain preca ution s and consi reed repea t testi ng. Resul t repor ginny to the [facility]. To preve nt error s in diagn osis, test resul ts shoul d be inter prete d in the leanna xt of clini griselda findi ngs and other labor atory data. Rare polym orphi sms exist that could lead to false -nega tive or false -posi tive resul ts. If resul ts obtai kt do not match the clini griselda findi ngs, addit ional testi ng shoul d be consi dered . This test has been autho rized by the FDA under an Emerg ency Use Autho rizat ion (EUA) for use by autho rized labor atori es. Testi ng perfo rmed by real time PCR utili ng BRANDEN 6800 SARS- CoV-2 test. Not Available [facility] [address] [place], [address], 05/03/2021 16:22:49 07/25/19 24 07/26/2023 CBC WITH DIFFE RENTI AL/PL ATELE T WBC 7.8 x10e3 /uL 3.4-10 .8 Not Available [facility] ([facility]) [address] [place], [address], 07/26/2023 06:08:12 07/25/19 24 07/26/2023 CBC WITH DIFFE RENTI AL/PL ATELE T RBC 4.24 x10e6 /uL 3.77-5 .28 Not Available [facility] ([facility]) [address] [facility], [place], [address], 07/26/2023 06:08:12 07/25/19 24 07/26/2023 CBC WITH DIFFE RENTI AL/PL ATELE T hemoglobin 12.4 g/dL 11.1-1 5.9 Not Available [facility] ([facility]) [address] [facility], [place], [address], 07/26/2023 06:08:12 07/25/19 24 07/26/2023 CBC WITH DIFFE RENTI AL/PL ATELE T hematocrit 36.9 % 34.0-4 6.6 Not Available [facility] ([facility]) [address] [place], [address], 07/26/2023 06:08:12 07/25/19 24 07/26/2023 CBC WITH DIFFE RENTI AL/PL ATELE T MCV 87 fL 79-97 Not Available [facility] ([facility]) [address] [facility], [place], [address], 07/26/2023 06:08:12 07/25/19 24 07/26/2023 CBC WITH DIFFE RENTI AL/PL ATELE T MCH 29.2 pg 26.6-3 3.0 Not Available [facility] ([facility]) [address] [place], [address], 07/26/2023 06:08:12 07/25/19 24 07/26/2023 CBC WITH DIFFE RENTI AL/PL ATELE T MCHC 33.6 g/dL 31.5-3 5.7 Not Available [facility] ([facility]) [address] [place], [address], 07/26/2023 06:08:12 07/25/19 24 07/26/2023 CBC WITH DIFFE RENTI AL/PL ATELE T RDW 12.4 % 11.7-1 5.4 Not Available [facility] ([facility]) [address] [place], [address], 07/26/2023 06:08:12 07/25/19 24 07/26/2023 CBC WITH DIFFE RENTI AL/PL ATELE T platelets 368 x10e3 /uL 150-45 0 Not Available [facility] ([facility]) [address] [facility], [place], [address], 07/26/2023 06:08:12 07/25/19 24 07/26/2023 CBC WITH DIFFE RENTI AL/PL ATELE T neutrophils 81 % not estab. Not Available [facility] ([facility]) [address] [facility], [place], [address], 07/26/2023 06:08:12 07/25/19 24 07/26/2023 CBC WITH DIFFE RENTI AL/PL ATELE T lymphs 14 % not estab. Not Available [facility] ([facility]) [address] [facility], [place], [address], 07/26/2023 06:08:12 07/25/19 24 07/26/2023 CBC WITH DIFFE RENTI AL/PL ATELE T monocytes 4 % not estab. Not Available [facility] ([facility]) [address] [facility], [place], [address], 07/26/2023 06:08:12 07/25/19 24 07/26/2023 CBC WITH DIFFE RENTI AL/PL ATELE T eos 1 % not estab. Not Available [facility] ([facility]) [address] [facility], [place], [address], 07/26/2023 06:08:12 07/25/19 24 07/26/2023 CBC WITH DIFFE RENTI AL/PL ATELE T basos 0 % not estab. Not Available [facility] ([facility]) [address] [facility], [place], [address], 07/26/2023 06:08:12 07/25/19 24 07/26/2023 CBC WITH DIFFE RENTI AL/PL ATELE T immature cells CONTACT CENTER ANALYST Not Available [facility] ([facility]) [address] [facility], [place], [address], 07/26/2023 06:08:12 07/25/19 24 07/26/2023 CBC WITH DIFFE RENTI AL/PL ATELE T neutrophils (absolute) 6.3 x10e3 /uL 1.4-7. 0 Not Available [facility] ([facility]) [address] [place], [address], 07/26/2023 06:08:12 07/25/19 24 07/26/2023 CBC WITH DIFFE RENTI AL/PL ATELE T lymphs (absolute) 1.1 x10e3 /uL 0.7-3. 1 Not Available [facility] ([facility]) [address] [facility], [place], [address], 07/26/2023 06:08:12 07/25/19 24 07/26/2023 CBC WITH DIFFE RENTI AL/PL ATELE T monocytes(ab solute) 0.3 x10e3 /uL 0.1-0. 9 Not Available [facility] ([facility]) [address] [place], [address], 07/26/2023 06:08:12 07/25/19 24 07/26/2023 CBC WITH DIFFE RENTI AL/PL ATELE T eos (absolute) 0.1 x10e3 /uL 0.0-0. 4 Not Available [facility] ([facility]) [address] [place], [address], 07/26/2023 06:08:12 07/25/19 24 07/26/2023 CBC WITH DIFFE RENTI AL/PL ATELE T baso (absolute) 0.0 x10e3 /uL 0.0-0. 2 Not Available [facility] ([facility]) [address] [place], [address], 07/26/2023 06:08:12 07/25/19 24 07/26/2023 CBC WITH DIFFE RENTI AL/PL ATELE T immature granulocytes 0 % not estab. Not Available [facility] ([facility]) [address] [facility], [place], [address], 07/26/2023 06:08:12 07/25/19 24 07/26/2023 CBC WITH DIFFE RENTI AL/PL ATELE T immature grans (abs) 0.0 x10e3 /uL 0.0-0. 1 Not Available [facility] ([facility]) [address] [facility], [place], [address], 07/26/2023 06:08:12 07/25/19 24 07/26/2023 CBC WITH DIFFE RENTI AL/PL ATELE T NRBC CONTACT CENTER ANALYST Not Available [facility] ([facility]) [address] [facility], [place], [address], 07/26/2023 06:08:12 07/25/19 24 07/26/2023 CBC WITH DIFFE RENTI AL/PL ATELE T hematology comments: CONTACT CENTER ANALYST Not Available [facility] ([facility]) [address] [facility], [place], [address], 07/26/2023 06:08:12 07/25/19 24 07/26/2023 COMP. METAB OLIC PANEL (14) glucose 118 mg/dL 70-99 above high normal Not Available [facility] ([facility]) [address] [facility], [place], [address], 07/26/2023 06:08:13 07/25/19 24 07/26/2023 COMP. METAB OLIC PANEL (14) BUN 14 mg/dL 8-27 Not Available [facility] ([facility]) [address] [facility], [place], [address], 07/26/2023 06:08:13 07/25/19 24 07/26/2023 COMP. METAB OLIC PANEL (14) creatinine 0.66 mg/dL 0.57-1 .00 Not Available [facility] ([facility]) [address] [place], [address], 07/26/2023 06:08:13 07/25/19 24 07/26/2023 COMP. METAB OLIC PANEL (14) eGFR 97 mL/mi n/1.7 3 >59 Not Available [facility] ([facility]) [address] [place], [address], 07/26/2023 06:08:13 07/25/19 24 07/26/2023 COMP. METAB OLIC PANEL (14) BUN/creatini ne ratio 21 12-28 Not Available [facility] ([facility]) [address] [facility] [place], [address], 07/26/2023 06:08:13 07/25/19 24 07/26/2023 COMP. METAB OLIC PANEL (14) sodium 140 mmol/ L 134-14 4 Not Available [facility] ([facility]) [address] [facility] [place], [address], 07/26/2023 06:08:13 07/25/19 24 07/26/2023 COMP. METAB OLIC PANEL (14) potassium 4.4 mmol/ L 3.5-5. 2 Not Available [facility] ([facility]) [address] [facility] [place], [address], 07/26/2023 06:08:13 07/25/19 24 07/26/2023 COMP. METAB OLIC PANEL (14) chloride 96 mmol/ L 96-106 Not Available [facility] ([facility]) [address] [facility] [place], [address], 07/26/2023 06:08:13 07/25/19 24 07/26/2023 COMP. METAB OLIC PANEL (14) anion gap 17.0 mmol/ L 10.0-1 8.0 Not Available [facility] ([facility]) [address] [facility], [place], [address], 07/26/2023 06:08:13 07/25/19 24 07/26/2023 COMP. METAB OLIC PANEL (14) carbon dioxide, total 27 mmol/ L Not Available [facility] ([facility]) [address] [place], [address], 07/26/2023 06:08:13 07/25/19 24 07/26/2023 COMP. METAB OLIC PANEL (14) calcium 9.9 mg/dL 8.7-10 .3 Not Available [facility] ([facility]) [address] [place], [address], 07/26/2023 06:08:13 07/25/19 24 07/26/2023 COMP. METAB OLIC PANEL (14) protein, total 6.9 g/dL 6.0-8. 5 Not Available [facility] ([facility]) [address] [place], [address], 07/26/2023 06:08:13 07/25/19 24 07/26/2023 COMP. METAB OLIC PANEL (14) albumin 4.6 g/dL 3.9-4. 9 Not Available [facility] ([facility]) [address] [place], [address], 07/26/2023 06:08:13 07/25/19 24 07/26/2023 COMP. METAB OLIC PANEL (14) globulin, total 2.3 g/dL 1.5-4. 5 Not Available [facility] ([facility]) [address] [place], [address], 07/26/2023 06:08:13 07/25/19 24 07/26/2023 COMP. METAB OLIC PANEL (14) A/G ratio 2.0 1.2-2. 2 Not Available [facility] ([facility]) [address] [place], [address], 07/26/2023 06:08:13 07/25/19 24 07/26/2023 COMP. METAB OLIC PANEL (14) bilirubin, total 0.6 mg/dL 0.0-1. 2 Not Available [facility] ([facility]) [address] [facility] [place], [address], 07/26/2023 06:08:13 07/25/19 24 07/26/2023 COMP. METAB OLIC PANEL (14) alkaline phosphatase 131 IU/L 44-121 above high normal Not Available [facility] ([facility]) [address] [facility] [place], [address], 07/26/2023 06:08:13 07/25/19 24 07/26/2023 COMP. METAB OLIC PANEL (14) AST (SGOT) 34 IU/L 0-40 Not Available [facility] ([facility]) [address] [place], [address], 07/26/2023 06:08:13 07/25/19 24 07/26/2023 COMP. METAB OLIC PANEL (14) ALT (SGPT) 45 IU/L 0-32 above high normal Not Available [facility] ([facility]) [address] [place], [address], 07/26/2023 06:08:13 07/25/19 24 07/26/2023 LP+NO N-HDL MENDEZ STERO L cholesterol, total 180 mg/dL 100-19 9 Not Available [facility] ([facility]) [address] [place], [address], 07/26/2023 06:08:14 07/25/19 24 07/26/2023 LP+NO N-HDL MENDEZ STERO L triglyceride s 106 mg/dL 0-149 Not Available [facility] ([facility]) [address] [place], [address], 07/26/2023 06:08:14 07/25/19 24 07/26/2023 LP+NO N-HDL MENDEZ STERO L HDL cholesterol 73 mg/dL >39 Not Available [facility]) [address] [place], [address], 07/26/2023 06:08:14 07/25/19 24 07/26/2023 LP+NO N-HDL MENDEZ STERO L VLDL cholesterol griselda 19 mg/dL 5-40 Not Available [facility] ([facility]) [address] [place], [address], 07/26/2023 06:08:14 07/25/19 24 07/26/2023 LP+NO N-HDL MENDEZ STERO L LDL chol calc ([facility]) 88 mg/dL 0-99 Not Available [facility]) [address] [facility], [place], [address], 07/26/2023 06:08:14 07/25/19 24 07/26/2023 LP+NO N-HDL MENDEZ STERO L non-HDL cholesterol 107 mg/dL 0-129 Not Available [facility]) [address] [place], [address], 07/26/2023 06:08:14 07/25/19 24 07/26/2023 LP+NO N-HDL MENDEZ STERO L comment: CONTACT CENTER ANALYST Not Available [facility] ([facility]) [address] [place], [address], 07/26/2023 06:08:14 07/25/19 24 07/26/2023 TSH REFLE X TO T4F TSH 1.160 uIU/m L 0.450- 4.500 Not Available [facility] ([facility]) [address] [place], [address], 07/26/2023 06:08:14 11/06/19 24 11/06/2023 COLOG UARD cologuard result reportable NEGATI VE negati ve normal NEGAT DERRICK TEST RESUL T. A negat derrick Colog uard resul t indic ates a low likel ihood that a color ectal cance r (CRC) or advan adrianna adeno ma (fidelia omato us polyp s with more advan adrianna pre-m align ant featu res) is prese nt. The [facility] e that a perso n with a negat derrick Colog uard test has a color ectal cance r is less than 1 in 1500 (nega tive predi ctive value >99.9 %) or has an advan adrianna adeno ma is less than 5.3% (nega tive predi ctive value 94.7% ). These data are based on a prosp ectiv e cross -sect ional study of ,00 0 indiv idual s at [place] risk for color ectal cance r who were scree kt with both Colog uard and colon oscop y. (Elisa Sher. et al, N Engl J Med 2014; 370(1 4):12 86-12 97) The ranjan l value (refe rence range ) for this assay is negat derrick. COLOG UARD RE-SC REENI NG RECOM MENDA TION: Perio dic color ectal cance r scree kevin is an impor tant part of preve ntive healt hcare for asymp tomat ic indiv idual s at [place] risk for color ectal cance r. Follo wing a negat derrick Colog uard resul t, the Ameri can Cance r Socie ty and U.S. Multi -Soci ety Task Force scree kevin guide lines recom mend a Colog uard re-sc reeni ng inter brand[place] of 3 years . Refer ences : Ameri can Cance r Socie ty Guide line for Color ectal Cance r Scree kevin: https ://sindy w.can cer.o rg/ca ncer/ colon -rect al-ca ncer/ detec tion- diagn osis- stagi ng/ac s-rec ommen datio ns.ht ml.; Ferdinand FULLER, Latrell wright CR, Bryant AgeeK, Color ectal Cance r Scree kevin: Recom menda tions for Physi cians and Patie nts from the U.S. Multi -Soci ety Task Force on Color ectal Cance r Scree kevin , Am Anuel aguilera y 2017; 112:1 016-1 030. TEST DESCR IPTIO N: [place] site algor ithmi c fatmata sis of stool DNA-b iomelinda kers with hemog lobin immun oassa y. Quant itati ve value s of indiv idual bioma rkers are not repor table and are not assoc iated with indiv idual bioma rker resul t refer ence range s. Colog uard is inten ded for color ectal cance r scree kevin of adult s of eithe r sex, 45 years or older , who are at [facility] for color ectal cance r (CRC) . Colog uard has been appro marlo for use by the U.[place]. FDA. The perfo rmanc e of Colog uard was estab lishe d in a cross secti onal study of [facility] adult s aged 50-84 . Colog uard perfo rmanc e in patie nts ages 45 to 49 years was estim ated by sub-g roup fatmata sis of near- age group s. Colon oscop ies perfo rmed for a posit derrick resul t may find as the most clini arcadio signi fican t lesio n: color ectal cance r [4.0% ], advan adrianna adeno ma (incl uding sessi le louisa ginny polyp s great er than or equal to 1cm diame ter) [20%] or non- advan adrianna adeno ma [31%] ; or no color ectal neopl carie [45%] . These estim ates are deriv ed from a prosp ectiv e cross -sect ional scree kevin study of 10,00 0 indiv idual s at [facility] risk for color ectal cance r who were scree kt with both Colog uard and colon oscop y. (Elisa Bhat al, N Engl J Med 2014; 370(1 4):12 86-12 97.) Colog uard may produ ce a false negat derrick or false posit derrick resul t (no color ectal cance r or preca ncero us polyp prese nt at colon oscop y follo w up). A negat derrick Colog uard test resul t does not guara ntee the absen ce of CRC or advan adrianna adeno ma (pre- cance r). The curre nt Colog uard scree kevin inter brandon is every 3 years . ([employer] C[employer] r Socie ty and [place] Multi -Soci ety Task Force ). Colog uard perfo rmanc e data in a ,00 0 patie nt pivot al study using colon oscop y as the refer ence metho d can be acces sed at the follo wing locat ion: [email or web address] [email or web address] om/re estrella . Addit ional descr iptio n of the Colog uard test proce ss, warni ngs and preca ution s can be found at [email or web address] karuna [email or web address] om. Not Available [employer] (Cologuard Orders Only) [address], [place], [address], 11/12/2023 05:50:58 09/29/19 21 09/28/2020 XR, foot No observ ation record ed. [facility] [address] [place] [address], [id number], 10/03/2020 15:51:04 12/11/19 22 12/09/2021 imagi ng/di agnos tic resul t No observ ation record ed. [facility] [address] [place], [address], 12/11/2021 20:30:10 02/25/20 22 02/22/2022 MRI, shoul reed, w/o contr ast No observ ation record ed. [facility] [address] [place] [address], [address], 02/25/2022 14:55:27 06/10/19 23 06/10/2022 XR, knee, 1 or 2 view No observ ation record ed. [email or web address] [facility] Dept [address] [place], [address], 06/11/2022 08:59:31 08/08/19 24 08/08/2023 MRI, lumba r spine , w/o contr ast No observ ation record ed. [facility] [address] [place], [address], 08/08/2023 09:52:22 03/18/20 24 03/11/2024 CT, abdom en, w/wo contr ast No observ ation record ed. [email or web address] [facility] [address] [place], [address], 03/19/2024 10:00:42 Result Notes None recorded. Problems Name Problem SNOMED Code Status Onset Date Resolution Date Notes Provider Name and Address Organization Details Recorded Time Osteopen ia 754861278 Active 2012 Not Available [employer] 3 13:10:54 Restless legs 84378404 Active 2016 Not Available [employer] 3 13:10:54 [facility] hyperten emmy 23482000 Active 2016 Not Available [employer] 3 13:10:54 Hyperlip idemia 00339349 Active 2016 Not Available [employer] 3 13:10:54 Gastroes ophageal reflux disease without esophagi tis 136520411 Active 2016 Not Available [employer] 3 13:10:54 Asthma 823827461 Completed 201603/14/2017 Emir Zafar, [facility] [address] [facility] [address], [place], [address] , [facility] 2 14:03:10 Osteoart hritis of hip 924005612 Active 2016 end stage- Left hip Not Available [employer] 3 13:10:54 Spinal stenosis in cervical region 52141600 Active 2016 Not Available [facility] 3 13:10:54 History of total hysterec maureen 428118826 Active 2007 Not Available [employer] 3 13:10:54 Exercise -induced asthma 19537664 Active 2017 Not Available [employer] 3 13:10:54 Ex-smoke r 4933759 Active 2017 Not Available [employer] 3 13:10:54 Attentio n deficit hyperact ivity disorder , predomin antly inattent derrick type 58831405 Active 2014 sees psychiat rist Not Available [employer] 3 13:10:54 Anxiety 91385057 Active Not Available [employer] 3 13:10:54 Major depressi ve disorder 357685138 Active Not Available [employer] 3 13:10:54 Posttrau matic stress disorder 85908861 Active Not Available [employer] 3 13:10:54 Total hysterec maureen with removal of both tubes and ovaries Active 2007 Not Available [employer] 3 13:10:54 Wilson' s esophagu s 070657724 Active 2019 Not Available [facility] 3 13:10:54 Exposure to SARS-CoV -2 Completed 08/31/2020 Removal Reason: Problem added by user [email or web address] from the COVID-19 watch flag Emir Zafar, [facility] [address] [address], [place], [address] , [facility] 1 09:56:38 COVID-19 255517036 Active 2021 Not Available [employer] 3 13:10:54 Asthma 413160531 Active 2021 Not Available [employer] 3 13:10:54 Fatigue 56086715 Active 2021 Not Available [employer] 3 13:10:54 Moderate recurren t major depressi on 89469367 Active 2022 Not Available [employer] 3 13:10:54 Insomnia 825771691 Active 2022 Not Available [facility] 3 13:10:54 Gastroes ophageal reflux disease 471102680 Active 2022 Not Available [facility] 3 13:10:54 Attentio n deficit hyperact ivity disorder , combined type 78421352 Active 2022 Not Available [facility] 3 13:10:54 Low back pain 940864067 Active 2022 Not Available [facility] 3 13:10:54 Herpes labialis 0567894 Active 2022 Emir Zafar, [facility] [address] [address], [place], [address] , [facility] 3 13:40:27 Generali zed anxiety disorder 79151220 Active 2023 Emir [facility]afar [facility] [address] [address], [place], [address] , [facility] 4 15:56:41 Pain of left hip joint 99102245866 9100 Active 2023 Emir Zafar, [facility] [address] [address], [place], [address] , [facility] 4 16:07:27 Problem Notes None recorded. Procedures Surgical History Date Name Laterality Status Provider Name and Address Organization Details Recorded Time 08/04/19 24 injection into lumbar epidural space completed Viry thacker MA [facility] 10/23/2023 15:35:13 08/04/19 24 injection of cortisone completed Viry thacker MA [facility] 10/23/2023 15:35:27 02/03/20 23 injection into lumbar epidural space completed Viry thacker MA [facility] 10/23/2023 15:35:06 06/10/19 23 Total knee arthroplasty completed Didi Mccormick [facility] 06/11/2022 08:39:13 04/11/20 22 arthroscopy of shoulder with excision of distal clavicle completed Didi Mccormick [facility] 04/19/2022 14:28:02 04/11/20 22 acromioplasty of shoulder completed Didi Mccormick [facility] 04/19/2022 14:28:21 04/09/20 22 Arthroscopic Surgery completed Chelsi Gaines MA [facility] 07/18/2022 09:22:34 02/03/20 20 endoscopy completed PARVEEN Bruno [address] [facility] [address] [facility] [place], [place], [address], [facility] 08/31/2020 10:04:13 01/15/20 19 Arthroscopic Surgery completed Solangececilia Beatty [facility] 01/19/2019 09:34:21 07/18/19 19 Most Recent Mammogram completed Solange Rogerio [facility] 07/23/2018 10:30:46 07/18/19 19 Mammogram screening completed [facility] Rogerio [facility] 07/23/2018 10:30:38 02/03/20 18 injection of trigger points completed Anne-Marie Cheney [facility] 02/03/2018 14:31:58 07/11/19 18 Endoscopic us exam esoph completed Zaria Kessler [facility] 08/07/2017 12:03:24 11/02/19 17 Joint Injection completed Celio Casanova MD [address] [facility] [place], [place], [address], [facility] 11/01/2016 14:17:00 11/02/19 17 Corticosteroid Injection completed Celio Casanova MD [address], [place], [address], [facility] 11/01/2016 14:16:35 09/25/19 16 Arthroscopic Surgery completed Jess Santillan MA [facility] 08/06/2016 14:51:37 11/19/19 13 Date of Last Colonoscopy completed Viry thacker MA [facility] 05/14/2017 13:51:55 11/19/19 13 Colonoscopy completed Zaria Victoria [facility] 08/07/2017 12:05:23 10/29/19 13 Most Recent Bone Density completed Viry thacker MA [facility] 01/22/2017 11:46:38 10/29/19 13 Dxa bone density eda vrt fx completed Viry thacker MA [facility] 01/22/2017 11:46:28 05/05/19 08 Total hysterectomy completed Viry thacker MA [facility] 05/14/2017 13:52:34 Arthroscopic Surgery completed Jess Santillan MA [facility] 08/06/2016 14:52:00 Imaging Results Imaging Date Name Status LastModified by Organiz ation Details LastModified Time 09/28/2020 XR, foot completed [facility] [address] [place] [address], [address], 10/03/2020 15:51:04 12/09/2021 imaging/diagn ostic result completed [facility] [address] [place] [address], [address], 12/11/2021 20:30:10 02/22/2022 MRI, shoulder, w/o contrast completed [facility] [address] [place] [address], [address], 02/25/2022 14:55:27 06/10/2022 XR, knee, 1 or 2 view completed [email or web address] [facility] [address] [place] [address], [address], 06/11/2022 08:59:31 08/08/2023 MRI, lumbar spine, w/o contrast [email or web address] [address] [place] [address], [address], 08/08/2023 09:52:22 03/11/2024 CT, abdomen, w/wo contrast completed [email or web address] [facility] [address], [place], [address], 03/19/2024 10:00:42 Procedure Notes None recorded. Medical Equipment None Reported. Allergies Allergen ID Allergen Name Allergen Category Reaction Reaction Severity Criticality Documentation Date Start Date Code Code System Note Provider Name and Address Organization Details Recorded Time 61396 No known allergy (situatio n) Not available Not available Not available Not available 03/17/2020 35744 6003 SNOMED Brigid Gallardo MA [facility] [place] [facility] 15:24:06 No known drug allergies Medications Name Sig Start Date Stop Date Status Note LastModified by Organization Details LastModified Time diclofena c 75 mg-misopr ostol 200 mcg tablet,im mediate,d elayed release Take 1 tablet as needed by oral route as directed for 20 days. 11/01 completed Not Available Not Available Not Available celecoxib 200 mg capsule Take 1 capsule by oral route for 28 days. 02/01 completed Not Available Not Available Not Available cyclobenz aprine 10 mg tablet Take 1 tablet 3 times a day by oral route as needed for 5 days. 09/17 completed Not Available Not Available Not Available amoxicill in 500 mg capsule TAKE 1 CAPSULE BY MOUTH 3 TIMES A DAY 07/18 completed prior to dental procedur es Not Available Not Available Not Available atorvasta tin 40 mg tablet TAKE 1 TABLET BY MOUTH EVERY DAY DIRECTED active Not Available Not Available No t Available methocarb xin 500 mg tablet Take 2 tablets 3 times a day by oral route as needed for 10 days. 09/17 completed Not Available Not Available Not Available venlafaxi ne ER 37.5 mg capsule,e xtended release 24 hr TAKE 3 CAPSULE BY MOUTH ONCE DAILY DIRECTED 02/08 completed Not Available Not Available Not Available clonidine HCl 0.1 mg tablet Take by oral route for 90 days. 02/01 completed prn Not Available Not Available Not Available venlafaxi ne ER 75 mg capsule,e xtended release 24 hr TAKE 1 CAPSULE BY MOUTH EVERY DAY 10/22 completed Not Available Not Available Not Available gabapenti n 600 mg tablet Take 3 tablets 3 times a day by oral route. 05/22 completed Not Available Not Available Not Available azithromy roxanna 250 mg tablet TAKE 2 TABLETS (500 MG) BY ORAL ROUTE ONCE DAILY FOR 1 DAY THEN 1 TABLET (250 MG) BY ORAL ROUTE ONCE DAILY FOR 4 DAYS 08/31 completed Not Available Not Available Not Available ibuprofen 800 mg tablet TAKE 1 TABLET BY MOUTH 4 TIMES A DAY NEEDED FOR PAIN 10/07 completed Not Available Not Available Not Available valacyclo vir 1 gram tablet TAKE 2 TABLETS BY MOUTH EVERY 12 HOURS FOR 1 DAY FOR COLD CORES DIRECTED active Not Available Not Available No t Available hydrocodo ne 5 mg-acetam inophen 325 mg tablet TAKE 1 TABLET BY MOUTH EVERY 6 HOURS NEEDED FOR PAIN 07/18 completed Not Available Not Available Not Available methylphe nidate 20 mg tablet TAKE 2 TABS IN AM AND 1 TAB AT 3PM active Not Available Not Available No t Available meloxicam 15 mg tablet TAKE 1 TABLET BY MOUTH EVERY DAY DIRECTED FOR 90 DAYS 2024 active Not Available Not Available Not Avai lable prednison e 20 mg tablet TAKE 2 TABLETS EVERY DAY BY ORAL ROUTE IN THE MORNING FOR 3 DAYS. 02/01 completed Not Available Not Available Not Available sertralin e 100 mg tablet Take 1 tablet every day by oral route as directed for 90 days. 02/12 completed Not Available Not Available Not Available cromolyn 4 % eye drops INSTILL 1 DROP INTO AFFECTED EYE 4 TIMES A DAY 05/22 completed Not Available Not Available Not Available venlafaxi ne ER 150 mg capsule,e xtended release 24 hr TAKE 2 CAPSULES BY MOUTH EVERY DAY IN THE MORNING 02/01 completed Not Available Not Available Not Available methylphe nidate ER 54 mg tablet,ex tended release 24 hr Take 0.5 tablets every day by oral route. 06/03 completed [facility] Not Available Not Available Not Available estradiol 0.05 mg/24 hr semiweekl y transderm al patch Apply 1 patch every 72 hours by transder m. route as directed for 84 days. 08/31 completed Not Available Not Available Not Available valacyclo vir 500 mg tablet Take 1 tablet 3 times a day by oral route as directed . 10/22 completed for cold sores PRN Not Available Not Available Not Available sulfameth oxazole 800 mg-trimet hoprim 160 mg tablet Take 1 tablet twice a day by oral route for 3 days. 09/17 completed Not Available Not Available Not Available tramadol 50 mg tablet 08/06 completed Not Available Not Available Not Available amoxicill in 500 mg tablet TAKE 4 TABLETS BY MOUTH 1 HOUR PRIOR TO DENTAL APPT OR COLONOSC OPY 02/01 completed Not Available Not Available Not Available simvastat in 40 mg tablet TAKE 1 TABLET BY MOUTH EVERY DAY 06/03 completed Not Available Not Available Not Available lamotrigi ne 25 mg tablet TAKE 2 TABLETS BY MOUTH IN THE MORNING AND TAKE 1 TABLET AT BEDTIME active Not Available Not Available No t Available meloxicam 7.5 mg tablet TAKE 1 TABLET (ORAL) 1 TIME PER DAY NEEDED FOR - PAIN FOR 10 DAYS 10/07 completed Not Available Not Available Not Available oxycodone -acetamin ophen 5 mg-325 mg tablet TAKE 1 TABLET BY MOUTH EVERY 4 HOURS NEEDED FOR PAIN 07/18 completed Not Available Not Available Not Available amoxicill in 875 mg tablet 03/14 completed Not Available Not Available Not Available lorazepam 0.5 mg tablet TAKE 1 TABLET BY MOUTH TWICE A DAY NEEDED FOR 15 DAYS 2023 active Not Available Not Available Not Avai lable methocarb xin 750 mg tablet TAKE 1 TABLET BY MOUTH EVERY 8 HOURS NEEDED FOR SPASMS 02/01 completed Not Available Not Available Not Available phenazopy ridine 100 mg tablet 02/08 completed Not Available Not Available Not Available benzonata te 100 mg capsule Take 1 capsule 3 times a day by oral route as needed for 5 days. 10/22 completed Not Available Not Available Not Available ropinirol e 2 mg tablet TAKE 1 TABLET BY MOUTH THREE TIMES A DAY NEEDED 2024 active Not Available Not Available Not Avai lable cephalexi n 500 mg capsule 02/08 completed Not Available Not Available Not Available pantopraz ole 40 mg tablet,de layed release Take 1 tablet every day by oral route as directed for 90 days. 02/01 completed Not Available Not Available Not Available trazodone 150 mg tablet TAKE 1 TO 2 TABLETS BY MOUTH AT BEDTIME NEEDED active Not Available Not Available No t Available oseltamiv ir 75 mg capsule Take 1 capsule twice a day by oral route as directed for 5 days. 09/17 completed Not Available Not Available Not Available lisinopri l 10 mg tablet TAKE 1 TABLET BY MOUTH EVERY DAY active Not Available Not Available No t Available polymyxin B sulfate 10,000 unit-trim ethoprim 1 mg/mL eye drops INSTILL 1 DROP INTO Bilatera l EYE(S) BY OPHTHALM IC ROUTE EVERY 6 HOURS 01/01 completed Not Available Not Available Not Available gabapenti n 300 mg capsule TAKE 1 CAPSULE BY MOUTH THREE TIMES A DAY DIRECTED 02/01 completed Not Available Not Available Not Available sertralin e 25 mg tablet 03/14 completed Not Available Not Available Not Available omeprazol e 20 mg capsule,d elayed release TAKE 2 CAPSULES BY MOUTH EVERY MORNING *MAX 1 CAPSULE PER DAY PER INSURANC E* 2024 active Not Available Not Available Not Avai lable diclofena c sodium 75 mg tablet,de layed release 08/06 completed Not Available Not Available Not Available dextroamp hetamine- amphetami ne ER 10 mg 24hr capsule,e xtend release 08/06 completed Not Available Not Available Not Available codeine 10 mg-guaife nesin 100 mg/5 mL oral liquid Take 10 mL every 4 hours by oral route as needed for 4 days. 11/01 completed Not Available Not Available Not Available hydrochlo rothiazid e 25 mg tablet TAKE 1 TABLET BY MOUTH EVERY DAY DIRECTED 2024 active Not Available Not Available Not Avai lable gabapenti n 100 mg capsule Take 2 capsules every day by oral route as directed for 90 days. 02/01 completed Not Available Not Available Not Available estradiol 0.5 mg tablet Take 1 tablet every day by oral route as directed for 90 days. 09/17 completed as needed Not Available Not Available Not Available lorazepam 1 mg tablet TAKE 1 TABLET BY MOUTH 3 TIMES A DAY NEEDED FOR ANXIETY 02/01 completed Not Available Not Available Not Available warfarin 1 mg tablet TAKE 4 TABLETS BY MOUTH DAILY 07/18 completed Not Available Not Available Not Available albuterol sulfate HFA 90 mcg/actua tion aerosol inhaler INHALE 2 PUFFS BY MOUTH EVERY 4 HOURS NEEDED active Not Available Not Available No t Available ondansetr on 4 mg disintegr ating tablet 02/08 completed Not Available Not Available Not Available methylphe nidate ER 18 mg tablet,ex tended release 24 hr 08/06 completed Not Available Not Available Not Available fluticaso ne propionat e 50 mcg/actua tion nasal spray,[place] [employer] SPRAY 1 SPRAY INTO EACH NOSTRIL EVERY DAY DIRECTED FOR 30 DAYS FOR ALLERGY SYMPTOMS as needed active Not Available Not Available No t Available sertralin e 50 mg tablet Take 1 tablet every day by oral route as directed for 90 days. 02/12 completed Not Available Not Available Not Available naproxen 500 mg tablet TAKE 1 TABLET BY MOUTH TWICE DAILY 07/18 completed Not Available Not Available Not Available methylphe nidate ER 36 mg tablet,ex tended release 24 hr 08/06 completed Not Available Not Available Not Available amoxicill in 875 mg-potass ium clavulana te 125 mg tablet TAKE 1 TABLET BY MOUTH EVERY 12 HOURS FOR 7 DAYS 10/07 completed Not Available Not Available Not Available ropinirol e 4 mg tablet TAKE 1 TABLET BY MOUTH 3 TIMES A DAY DIRECTED 09/17 completed Not Available Not Available Not Available oxycodone 5 mg tablet TAKE 1-2 TABS BY MOUTH EVERY 6-8 HOURS NEEDED FOR PAIN. MAY FILL FOR LESSER QUANTITY 02/01 completed Not Available Not Available Not Available Concerta 27 mg tablet,ex tended release Take 1 tablet every day by oral route for 30 days. 06/03 completed Not Available Not Available Not Available enoxapari n 40 mg/0.4 mL subcutane ous syringe INJECT ONE SYRINGE (40MG)CHENG BCUTANEO USLY DAILY 07/18 completed Not Available Not Available Not Available cyclobenz aprine 5 mg tablet Take 1 tablet as needed by oral route as directed for 15 days. 05/22 completed Not Available Not Available Not Available prednison e 20 mg daily for 6 days 05/22 completed Not Available Not Available Not Available hydrocodo ne 5 mg-acetam inophen 300 mg tablet 08/06 completed Not Available Not Available Not Available venlafaxi ne ER 150 mg tablet,ex tended release 24 hr 02/01 completed Not Available Not Available Not Available Shingrix (PF) 50 mcg/0.5 mL intramusc ular suspensio n, kit 08/31 completed Not Available Not Available Not Available Afluria Quad (PF) 60 mcg (15 mcg x 4)/0.5 mL IM syringe 05/22 completed Not Available Not Available Not Available Fluarix Quad (PF) 60 mcg (15 mcg x 4)/0.5 mL IM syringe 06/03 completed Not Available Not Available Not Available Fluarix Quad (PF) 60 mcg (15 mcg x 4)/0.5 mL IM syringe 08/31 completed Not Available Not Available Not Available Paxlovid 300 mg (150 mg x 2)-100 mg tablets in a dose pack Take 3 tablets twice a day by oral route as directed for 5 days. 10/22 completed Not Available Not Available Not Available Vitals Date Recorded Body height Body temperature Body mass index (BMI) Body weight Heart rate Oxygen saturation Oxygen saturation in Arterial blood by Pulse oximetry Systolic blood pressure Diastolic blood pressure Provider Name and Address Organization Details Last Updated DateTime 1 163.2 cm 98.78 [degF] 30.7 kg/m2 96963.6 8 g 80 /min 97 % 97 % 123 mm[Hg] 79 mm[Hg] Elaine Connell [facility] 1 09:50:31 Date Recorded Body height Body mass index (BMI) Body weight Heart rate Oxygen saturation Oxygen saturation in Arterial blood by Pulse oximetry Body temperature Systolic blood pressure Diastolic blood pressure Provider Name and Address Organization Details Last Updated DateTime 3 163.2 cm 28.8 kg/m2 49693.2 1 g 85 /min 95 % 95 % 97.6 [degF] 147 mm[Hg] 79 mm[Hg] Chelsi Gaines [facility] 3 09:17:38 Date Recorded Body height Provider Name an d Address Organization Details Last Updated DateTime 02/01/2023 163.2 cm Gloria Haro MA [facility] 02/01/2023 10:47:14 Date Recorded Body height Body mass index (BMI) Body weight Heart rate Oxygen saturation Oxygen saturation in Arterial blood by Pulse oximetry Body temperature Systolic blood pressure Diastolic blood pressure Provider Name and Address Organization Details Last Updated DateTime 4 163.2 cm 27.6 kg/m2 47602.9 6 g 80 /min 98 % 98 % 97.7 [degF] 132 mm[Hg] 80 mm[Hg] Viry flores MA [facility] 4 15:31:45 Social History Question Answer Notes LastModified by Organizat ion Details LastModified Time Tobacco Smoking Status [facility] 08/06/[facility] 14:50:40 Do You Have An Advance Directive? No Information not available 10/07/2021 What Is Your Level Of Alcohol Consumption? Occasional Beer/rare Information not available 10/23/2023 Is Blood Transfusion Acceptable In An Emergency? Yes Information not available 08/06/2016 What Is Your Level Of Caffeine Consumption? Moderate 1 Cup Coffee A Day Information not available 10/23/2023 How Much Tobacco Do You Chew? None Information not available 09/17/2017 Are You Currently Employed? Yes Retired Information not available 10/23/2023 What Type Of Diet Are You Following? REGULAR Information not available 08/06/2016 Which Illicit Or Recreational Drugs Have You Used? None [email or web address] Information not available 08/06/2016 Do You Or Have You Ever Used E-cigarettes Or Vape? 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 16+yearssince lastcigarette Information not available 10/23/2023 Do You Take Precautions To Prevent Distracted Driving? Yes Information not available 08/06/2016 How Often Do You Need To Have Someone Help You When You Read Instructions, Pamphlets, Or Other Written Material From Your Doctor Or Pharmacy? Never Information not available 08/06/2016 Have You Served In The ? No Information not available 08/06/2016 Have You Or Anyone In Your Household Had Any Of The Following Symptoms In The Last 14 Days: Sore Throat, Cough, Chills, Body Aches For Unknown Reasons, Shortness Of Breath For Unknown Reasons, Loss Of Smell, Loss Of Taste, Fever At Or Greater Than 100 Degrees Fahrenheit? Yes Information not available 02/09/2020 Are You Or Anyone In Your Household A Health Care Provider Or Emergency Responder? No Information not available 02/09/2020 To The Best Of Your Knowledge Have You Been In Close Proximity To Any Individual Who Tested Positive For COVID-19? No Information not available 02/09/2020 What Was The Date Of Your Most Recent Tobacco Screening? 10/23/2023 Information not available 10/23/2023 How Many Children Do You Have? 0 Information not available 08/06/2016 What Is Your Current Pack Years? 10packyears Information not available 10/23/2023 Are You Sexually Active? Yes [email or web address] Information not available 03/14/2017 At What Age Did You Start Smoking Tobacco? 19 Quit At 38 Information not available 10/23/2023 Are You Passively Exposed To Smoke? No Information not available 08/06/2016 Do You Or Have You Ever Used Smokeless Tobacco? Never Used Smokeless Tobacco Information not available 06/03/2019 How Much Tobacco Do You Smoke? 0.5 PPD Information not available 08/06/2016 Do You Use Any Illicit Or Recreational Drugs? No Information not available 07/18/2022 Do You Use Sunscreen Routinely? Yes Information not available 08/06/2016 How Many Years Have You Smoked Tobacco? 19 Information not available 10/23/2023 Do You Or Have You Ever Used Any Other Forms Of Tobacco Or Nicotine? No Information not available 07/18/2022 Sex: Unknown Functional Status Question Answer Note LastModified by Organizat ion Details LastModified Time Are you able to walk? YESWOREST Information not available 07/18/2022 Are you able to care for yourself? Yes sister; tSacy Information not available 09/17/2017 What is your exercise level? Moderate walking Information not available 10/23/2023 Mental Status None recorded. Family History Relationship Description Onset Age of this Age Resolved Age Notes LastModified by Organization Details LastModified Time Mother Hypercholest erolemia abolcun Not available 2016 14:37:49 Mother Atrial fibrillation awychowski Not available 14:07:00 Mother Heart valve replacement awychowski Not available 09/2021 14:07:00 Father Arthritis 83 abolcun Not available 08/06/2016 14:37:49 Father Dementia 78 83 abolcun Not available 08/06/2016 14:37:49 Medical History Condition Response Gout N Other N Kidney Stones N Blood Diseases N Hyperthyroidism N Breast Cancer N Hypothyroidism N Lung Disease N Depression Y COPD N Developmental or Behavioral Disorders Y Defects or Inherited Disease N Breast Problem Y Anesthesia Complications N Headaches/Migraines N Varicose Veins N Anxiety Disorder Y Muscle, Joint, or Bone Problems Y Obesity N Vision or Eye Problems N Arthritis Y Head Injury/Concussion N Infertility N Polyps N Congenital Anomalies N Acid Reflux (GERD) Y Cancer N Stroke N ADHD Y Endometriosis N High Cholesterol Y Liver Disease N Fibromyalgia N Kidney Disease N Heart Problems N Ear or Hearing Problems N Hospitalizations N Thyroid Problems N GI Problems N Acne N Eating Disorder N Skin Problems N Anemia N Constipation N Bladder Problems N Mental Illness N Diabetes N Ovarian Cancer N Blood Transfusions N Seizures/Epilepsy N Tuberculosis N AIDS/HIV N Congestive Heart Failure (CHF) N Eczema N Abuse/Domestic Violence N Diverticulitis N Asthma N Allergies N Reflux/GERD Y Hepatitis N Pulmonary Embolism N Hypertension Y Chicken Pox N Autism Spectrum Disorder (ASD) N Osteoporosis N Gynecological History Statement/Question Response Abnormal Pap Y Date of Last Colonoscopy 11/18/2012 Most Recent Bone Density 10/28/2012 Menses Monthly N Date of Last Pap Smear Age at Menarche 48 Current Control Method Hysterectom y Most Recent Mammogram 07/17/2018 Obstetrics History GPAL:G 0 P 0 0 0 0 Immunizations Vaccine Type Date Status Note Provider Nam e and Address Organization Details Recorded Time Influenza, split virus, quadrivalent, preservative 6 completed Sheyla porter [facility] 03/03/2023 08:53:10 Tdap 3 completed Sheyla Navarro null, [facility] 03/03/2023 08:53:10 Tdap 3 completed Sheyla Navarro null, [facility] 03/03/2023 08:53:10 pneumococcal polysaccharide PPV23 7 completed Sheyla Navarro null, [facility] 03/03/2023 08:53:10 Influenza, split virus, quadrivalent, PF 9 completed Sheyla Navarro null, [facility] 03/03/2023 08:53:10 zoster recombinant 9 completed Sheyla Navarro null, [facility] 03/03/2023 08:53:10 COVID-19, mRNA, LNP-S, PF, 30 mcg/0.3 mL dose 1 completed Sheyla Navarro null, [facility] 03/03/2023 08:53:10 COVID-19, mRNA, LNP-S, PF, 30 mcg/0.3 mL dose 1 completed Sheyla Navarro null, [facility] 03/03/2023 08:53:10 zoster recombinant 0 completed Sheyla Navarro null, [facility] 03/03/2023 08:53:10 COVID-19, mRNA, LNP-S, PF, 30 mcg/0.3 mL dose 1 completed Sheyla Navarro null, [facility] 03/03/2023 08:53:10 Influenza, split virus, quadrivalent, PF 1 completed Sheyla Navarro null, [facility] 03/03/2023 08:53:10 Influenza, split virus, quadrivalent, PF 8 completed Sheyla Navarro null, [facility] 03/03/2023 08:53:10 Influenza, split virus, quadrivalent, PF 0 completed Sheyla Navarro null, [facility] 03/03/2023 08:53:10 Pneumococcal conjugate PCV20, polysaccharide NFV185 conjugate, adjuvant, PF 3 completed Sheyla Navarro null, [facility] 03/03/2023 08:53:10 Tdap 3 completed Sheyla Navarro null, [facility] 03/03/2023 08:53:10 Influenza, MDCK, quadrivalent, PF 2 completed Sheyla Navarro null, [facility] 03/03/2023 08:53:10 COVID-19, mRNA, LNP-S, bivalent, PF, 30 mcg/0.3 mL dose 2 completed Sheylajai Navarro null, [facility] 03/03/2023 08:53:10 Influenza, high-dose, quadrivalent, PF 3 completed Sheyla Navarro [facility], [facility] 03/03/2023 08:53:10 RSV, recombinant, protein subunit RSVpreF, adjuvant reconstituted, 0.5 mL, PF 3 completed Viry Browning MA null, [facility] 10/23/2023 15:32:04 COVID-19, mRNA, LNP-S, PF, jose-sucrose, 30 mcg/0.3 mL 4 completed Sheyla porter, [facility] 03/24/2024 09:23:58 Influenza, high-dose, trivalent, PF 4 completed Sheyla Navarro null, [facility] 03/24/2024 09:23:58 Influenza, split virus, quadrivalent, PF 7 completed Not Available [facility] 05/22/2019 02:22:11 Past Encounters Encounter ID Performer Location Encounter Start Date Encounter Closed Date Diagnosis/Indication Diagnosis SNOMED-CT Code Diagnosis ICD10 Code Diagnosis Note [id number] Celio Casanova MD Main Office [address] [address] 08/06/2016 14:27:50 08/06/2016 16:01:33 Essential hypertension 69342950 I10 Well controlled on current medication s, she has eniugh HCTZ, refill provided on lisinopril . Hypercholesterolemia 136 93727 E78.00 Will check blood work, continue simvastati n as directed Restless legs 07664911 G 25.[address] Casanova, chronic condition nurse MD, I am not comfortabl e prescribin g this high a dose of ropinirole for restless leg syndrome and she should only be needing this at bedtime. I did explain this to the patient, she states lower doses or less frequency does not work for her. I will fill her current dosing for 3 months and Will refer to sleep medicine for further eval and medication adjusting as needed. Patient seems hesitant to do this but agrees. Hypertrophy of breast 37 8001820 N62 Has an appt for consult in September and needs a referral and letter of medical necessity. Verbalizes back and neck pain, diff finding bras etc. Major depr essive disorder 448475116 F32.[address] Coleman, continue meds as directed Anxiety 29644489 F41.[address] Coleman, continue meds as directed Adult atte ntion deficit hyperactivity disorder 215332252 F90.[address] Coleman, continue meds as directed [id number] Dario Burns MD Main Office [address] [facility] [address] [facility] [place] [address] 08/13/2016 14:08:08 08/13/2016 14:33:24 Upper respiratory infection 23217088 J06.9 sx treatment, hydration, rest, tylenol/ ibuprofen as needed. CXR today, azithro as prescribed . No driving or alcohol with cough med. [id number] Celio Casanova MD Main Office [address] [facility] [address] [facility] [place] [address] 11/01/2016 13:36:29 11/01/2016 14:20:23 Greater trochanteric pain syndrome 0852676 M70.62 [id number] Donald Gatica MD Main Office [address] [place] [address] 01/15/2017 14:16:44 01/15/2017 14:38:09 Needs influenza immunization 654050112 Z23 [id number] Brigid brown Main Office [address] [facility] [address] [place] [address] 03/14/2017 13:05:50 03/14/2017 14:02:21 Adult health examination 549979766 Z00.00 Had pap this summer, UTD on flu shot, will schedule her mammo. Essential hypertension 74811641 I10 Well controlled on current medication s, she has enough HCTZ, refill provided on lisinopril . Hyperlipidemia 34602991 E78.5 Gastroesop hageal reflux disease 427486416 K21.9 Major depr essive disorder 916580269 F32.[address] Coleman, continue meds as directed Anxiety 69161942 F41.[address] Coleman, continue meds as directed Screening for malignant neoplasm of breast 683168827 Z12.39 Body mass index 30+ - obesity 414547385 Z68.32 [id number] Donald Gatica MD Main Office [address] [facility] [address] [place] [address] 05/14/2017 13:45:11 05/14/2017 15:19:55 Varicella vaccination 09273182 Z23 Pt requesting rx. Will pursue at local pharmacy. Acute sinusitis 64488366 J01.90 Pt will try nasal saline/sup portive tx and if symptoms persist or worsen then start abx. Common/ser ious potnential medication side effects discussed. Advised to call if no improvemen t. Low back strain 18946454 1 S39.012A exam c/w muscle spasm. WIll try PRN muscle relaxant and heat. Call inb/worse or if new symptoms develop. [id number] Doanld Gatica MD Main Office [address] [facility] [address] [place] [address] 07/02/2017 13:47:39 07/02/2017 14:58:56 Postviral cough 870899351 R05 No abnormal findings on the exam. Pt. was reassured she has postviral /postflu fatigue and residual cough. ADvised on extra rest and fluids, cough meds PRN. Call office if wheezing, sob or fever. Malaise and fatigue 3193 29423 R53.83 [id number] Venita rubio Main Office [address] [facility] [address] [place] [address] 09/17/2017 09:35:54 09/17/2017 10:40:38 Palpitations 07408056 R00.2 offered re-assuran ce - nl ekg, no evidence or suspicion for afib Anxiety 04764921 F41.9 pt had panic attack - encouraged pt that is the time to appropriat meaghan take sánchez. on a prn basis encouraged pt to google term 'mindfulne ss' Essential hypertension 39692180 I10 stable, cont meds as dir, encouraged pt to get her outstandin g labs done [id number] Donald Gatica MD Main Office [address] [facility] [address] [place] [address] 01/01/2018 14:02:08 01/01/2018 15:12:33 Allergic conjunctivitis 630947487 H10.13 treated fot 10 days for bacterial conjunctiv itis in november with some relief but not gone. will tx for allergic conjunctiv itis with cromolyn. to call of no relief in 7 days. [id number] PARVEEN Bruno Main Office [address] [facility] [address] [place] [address] 05/11/2018 14:22:23 05/12/2018 09:37:52 [id number] Marlee Edwards Main Office [address] [address] [place] [address] 05/22/2018 10:48:13 05/22/2018 12:04:13 Adult health examination 560705306 Z00.00 Had pap this summer, UTD on flu shot, will schedule her mammo. Osteoarthritis of hip 23 4958993 M16.11 Hyperlipidemia 10475120 E78.5 Essential hypertension 38435511 I10 Well controlled on current medication s Restless legs 89446506 G 25.81 followed by sleep medicine and gets ropinirole from them History of total hysterectomy 218945853 Z90.710 Screening for malignant neoplasm of breast 831319493 Z12.39 Fatigue 94289394 R53.83 [id number] PARVEEN Bruno Main Office [address] [facility] [address] [place] [address] 06/03/2019 13:35:46 06/03/2019 14:33:27 Adult health examination 440013432 Z00.00 UTD on flu shot, mammo due in July Essential hypertension 50745603 I10 Well controlled on current medication s Hyperlipidemia 51535163 E78.5 Hepatitis C screening 41 4106323 Z11.59 Anxiety 66475883 F41.[address] 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 Coleman, will increase to 3 tabs of venlafaxin e and she will call to schedule with Dr. Cloeman today. She can make further changes. encouraged patient to prioritize self care, take time for herself and look into chair exercises or swimming. Posterior rhinorrhea 758 04753 R09.82 Asthma 260551123 J45.90 9 [id number] PARVEEN Bruno [facility] [address] [place] [address] 02/09/2020 12:02:15 02/09/2020 13:54:15 Asthma 647261722 J45.909 Exposure t o viral disease 7649294542 53825 Z03.818 cough, low grade temp, SOB, wheezing, chest heaviness headache, sore throat. Acute exac erbation of moderate persistent asthma 9892320138 41401 J45.41 hydration, rest, prednisone burst, albuterol as needed, quarantine until we have test results. tylenol/ ibuprofen as needed. if o2 sat drops below 90% or SOB worsens, fever, other concerning sx please go to ED. [id number] PARVEEN Bruno Main Office [address] [facility] [address] [place] [address] 06/06/2020 09:05:11 06/06/2020 09:57:03 Adult health examination 521023041 Z00.00 UTD on flu shot, mammo due in July [id number] PARVEEN Bruno Main Office [address] [facility] [address] [facility] [place] [address] 08/31/2020 09:35:27 08/31/2020 10:25:54 Adult health examination 849241774 Z00.00 due for mammo and labs Anxiety 74685956 F41.[address] Coleman, continue meds as directed Major depr essive disorder 000143712 F33.[address] Coleman Essential hypertension 54644676 I10 Well controlled on current medication s Hyperlipidemia 66995874 E78.5 Hepatitis C screening 41 9169280 Z11.59 Attention deficit hyperactivity disorder, predominantly inattentive type 96456755 F90.[address] Coleman. takes 40mg in am, 40mg in pm she will discuss with dr coleman on 09/18 Asthma 145385695 J45.90 9 Refill provided on inhaler Osteoarthritis of hip 23 9031722 M16.11 Screening for malignant neoplasm of breast 713416200 Z12.39 [id number] Donald Gatica MD [facility] [address] [facility] [address] [facility] [place] [address] 10/07/2021 14:06:41 10/12/2021 14:02:07 COVID-19 566696049 U07.1 Based on duration of symptoms and comorbidit ies pt is a candidate for antiviral therapy. Common/ser ious potential side effects discussed. Advised to call if noted. Current isolation guidelines based on immunizati on status discussed as well as isolation if rebound infection occurs. Medication s reviewed and dosing adjusted as indicated with Paxlovid. Hyperlipidemia 21169696 E78.5 Advised to hold atorvastat in for 10 days. Chronic insomnia 5525032 04 F51.04 Advised to reduce trazodone dose by 1/2 for seven days. [id number] Marlee Edwards Main Office [address] [facility] [address] [facility] [place] [address] 07/18/2022 09:09:51 07/18/2022 10:03:37 Adult health examination 269466115 Z00.00 Due for mammo and labs, due for colo in November. No paps- does not have a cervix Anxiety 10486830 F41.9 Starting with a new psychiatri July 25. has not taken lorazepam Major depr essive disorder 681254541 F33.1 Starting with a new psychiatri July 25. Essential hypertension 86766298 I10 repeat BP 122/86. taking meds as directed. Hyperlipidemia 38772630 E78.5 Attention deficit hyperactivity disorder, predominantly inattentive type 80846458 F90.0 takes 40mg in am, 40mg in pm, starting with new psychiatri Asthma 856349927 J45.90 9 Refill provided on inhaler Osteoarthritis of hip 23 3673841 M16.11 wants to wean off gabapentin - will decrease to 200mg daily x 14 days, then to 100mg daily x 14 days, then 100mg every other day x 7 days. Screening for malignant neoplasm of breast 555674149 Z12.39 Gastroesop hageal reflux disease 942331404 K21.9 omeprazole no longer covered, will try protonix Screening for malignant neoplasm of colon 524857610 Z12.11 Fatigue 34687603 R53.83 [id number] Monae Verma MD Main Office [address] [facility] [address] [place] [address] 02/01/2023 10:36:48 02/01/2023 11:19:04 COVID-19 873715689 U07.1 Tylenol OTC, not to exceed package insert for pain or fever q4-6h advised prn. Counselled on not exceeding more than 3g/day.Thr oat Lozenges otc prn for sore throatsalt water gargleadeq uate hydration enforcedre st advised.sa line sprayshumi difier use enforced.p axlovid sent, last available kidney function reviewed, advised eua and potential side effects,Ad vised to hold statin.Als o advised can use a teaspoon honey for coughisola tion precaution discussedp recaution advised if any difficulty breathing or tmax 103 > go to nearest ED [id number] PARVEEN Bruno Main Office [address] [facility] [address] [place] [address] 10/23/2023 15:18:47 10/23/2023 16:17:02 Adult health examination 246881017 Z00.00 Due for mammo and labs, due for colo in November. No paps- does not have a cervix Major depr essive disorder 926397126 F33.1 [facility], she will discuss 11/10/23 at her appt. Essential hypertension 33190504 I10 taking meds as directed. Hyperlipidemia 16673847 E78.5 Attention deficit hyperactivity disorder, predominantly inattentive type 72468094 F90.0 takes 40mg in am, 40mg in pm, starting with new psychiatri st Asthma 864485307 J45.90 9 Refill provided on inhaler Osteoarthritis of hip 23 6317146 M16.11 Screening for malignant neoplasm of breast 977543333 Z12.39 Gastroesop hageal reflux disease 601710993 K21.9 Screening for malignant neoplasm of colon 310049809 Z12.11 Generalize d anxiety disorder 41503772 F41.[address], lamictal not helping, has a lot of stress. Herpes labialis 9133697 B00.1 Wilson's esophagus 3029 63926 K22.70 Moderate r ecurrent major depression 74344394 F33.1 Pain of le ft hip joint 2128783038 09452 M25.552 Health Concerns Section Related Observation LastModified by Organization Detai ls LastModified Time None Recorded Concern Status LastModified by Organization Details LastModified Time None Recorded Advance Directives Directive N: Payers Encounter Date Sequence Insurance Name Policy Number Policy Rogers Covered Member ID Rogers Member ID Guarantor Name 08/31/2020 2 [employer] - [employer] (PPO) [id number] 2 Temo T Roosevelt [id number] Stephanie Fountainon 10/07/2021 2 [employer] - [employer] (PPO) [id number] 2 Temo Christos Roosevelt [id number] Stephanie Fountainon 07/18/2022 2 [employer] - [employer] (PPO) [id number] 2 Temo Christos Roosevelt [id number] Stephanie Townsendafson 07/18/2022 1 MEDICARE [place]: [employer] Stephanie Roosevelt [id number] Stephanie Townsendafson 02/01/2023 2 [employer] - [employer] - COMMON[employer]ALTH INDEMNITY PLAN - [place] (INDEMNITY) [id number] 2 Temo T Roosevelt [id number] Stephanie Townsendafson 02/01/2023 1 MEDICARE [place]: NATIONAL [employer] Stephanie Albert [id number] Stephanie Townsendafson 10/23/2023 2 [employer] - [employer]CS - COMMON[employer] INDEMNITY PLAN - [place] (INDEMNITY) [id number] 2 Temo Albert [id number] Stephanie Albert 10/23/2023 1 MEDICARE B-[place]: [facility] Stephanie Albert [id number] Stephanie Albert Notes Date Note Type Note Provider Name and Address Organization Details Recorded Time 08/31/2020 text/html Generic HPI TemplateReported bypatient.Notes:Presen ts for PE. has lost weight, is trying- eating habits have changed. she notes she gained a few pounds she was lower in the summer. Has weighted hula hoops.She started smoking cigarettes 3/ day - i hate it but it filled a void. At night uses a vape for anxiety and pain and that helps.has been seeing Dr. Coleman regularly- has a virtual appt 09/18. Not seeing her therapist because she hasn't been in the office- does not feel benefit from remote visits.Had endoscopy in February, had MRI brain for f/u meningioma. PARVEEN Bruno [address], [address], [facility] 08/31/2020 10:40:50 10/07/2021 text/html COVID-19 Symptom s September 2019Reported bypatient.COVID-19 Signs and Symptomsfever same; chills same Severity:mild Duration:symptoms lasting 1 days Onset/Timing:date of symptoms onset: (10/07/21) Associated Symptoms:no sputum production; no wheezing; no vomiting; no diarrhea; no change in mental status; no hypotension;fatigue;kenny dy aches Prior Labs and ImagingCOVID-19 nasopharyngeal swab (10/07/21) Donald Gatica MD [address] [address], [place], [address], [facility] 10/07/2021 14:31:31 07/18/2022 text/html Generic HPI TemplateReported bypatient.Notes:Presen ts for PE. has lost weight, is trying- eating habits have changed. -Had right shoulder surgery in April, left TKR in June, is in PT, overall doing well. [facility] through [facility].Now having left hip pain and right hip pain, groin pain. Having sciatic pain. At night uses a vape for anxiety and pain and that helps but rarely. Her psychiatrist left, will be seeing Dr. Golden July 25- for new patient visit. Did not have venlafaxine for 3 weeks and finally got a refill and is feeling better.- Has a lot going on, her is 84 and having memory trouble.--Her brother at age 57 in January, found in the shower. She is struggling with this. Marlee porter [facility] 07/23/2022 16:13:30 02/01/2023 text/html COVID-19 Symptom s September 2019Reported bypatient.COVID-19 Signs and Symptomscough worsening;chills worsening;repeated shaking with chills worsening;muscle pain worsening;headache worsening;sore throat worsening;fatigue worsening Contacts and Exposurepotential exposure in specific settings where COVID-19 cases have been reported Quality:dry cough Context:asthma Associated Symptoms:fatigue;runny nose;body aches Prior Labs and ImagingCOVID-19 nasopharyngeal swab Suitability of residential settingpatient does have caregiver at home; patient does have gloves and face masks available; patient does have members of the household at increased risk of complications; patient does have resources to access food and other necessities; patient does have separate bedroom and bathroom for patient; patient is able to adhere to hand hygiene and cough etiquette practicesNotes:Sx started yesterday, tested + today.Has had covid vaccine. Monae Verma MD [address] [address], [place], [address], [facility] 02/01/2023 11:17:56 10/23/2023 text/html Generic HPI TemplateReported bypatient.Notes:Presen ts for PE. has lost weight, is trying- eating habits have changed. - Having hip pain, had replacement and ? something loose, had MRI of lumbar spine, has had a couple of epidural injections but no help. takign tylenol but her liver function was off, unsure what to take for pain. - Has a lot going on, her is 84 and having memory trouble. Her was diagnosed with dementia at age 85, she is caring for him, is having a lot of stress, anxiety.Her psychiatrist put her on lamictal but she does not feel it is helping. [facility] appt 11/09 will discuss further. --Her brother at age 57 in January, found in the shower. - gets tingling in her feet, hx of mutliple surgeries left foot. 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.Medicare Annual Wellness VisitReported bypatient.Diet and Nutrition:healthy diet Fracture Risk:no history of fractures; no recent explained fracture; no sudden unexplained fractures; no previous musculoskeletal injuries Physical Activity:exercises on a regular basis; recent increase in physical activity; good physical condition Depression Risk:never feels sad, empty, or tearful; no loss of interest in activities; no significant changes in weight; no sleep disturbances or insomnia; no agitation; no loss of energy; no feelings of worthlessness or guilt; no thoughts of suicide; no history of depression; no history of mood disorders Orientation:no disorientation to time; no disorientation to date; no disorientation to place Concentration and Memory:no decreased concentrating ability; no memory lapses or loss; does not forget words Speech/Motor difficulties:no speech difficulties; no difficulty expressing formulated concepts; no difficulty with fine manipulative tasks; no difficulty writing/copying; no slowed reaction time; does not knock things over when trying to pick them up Hearing:no loss of hearing Vision:no vision problems Activities of Daily Living:able to bathe with limited or no assistance; able to contol urination and bowels; able to dress with limited or no assistance; able to feed self with limited or no assistance; able to get out of chair or bed with limited or no assistance; able to groom with limited or no assistance; able to toilet with limited or no assistance Instrumental Activities of Daily Living:able to do house work with limited or no assistance; able to grocery shop with limited or no assistance; able to manage medications with limited or no assistance; able to manage money with limited or no assistance; able to prepare meals with limited or no assistance; able to use the phone with limited or no assistance Falls Risk Assessment:no frequent falls while walking; no fall in the past year; no fall since last visit; no dizziness/vertigo Home Safety:no unsafe ana hazzards; no unsafe stairs; no unsafe gas appliances; working smoke/CO detectors; wears protective head gear for biking/high velocity; use of seatbelts; practicing 'safer sex'; no vision or hearing loss while driving; no fire arms; has hand bars in the bathroom/shower; good lighting in the home Emir Zafar [facility] [address] [place] [address], [id number], [facility] [place] 10/23/2023 16:12:27 OBGyn Episode No OBEpisode recorded.
--- OUTSIDE RECORDS SUMMARY | 2024-06-01 07:54 | XMS_ITS ---
Author Name [facility] Organization Unknown History of Medication Use Medication Directions Dispensed Refills Start Date End Date Stat us hydrochlorothiazideT akeNo date recordedNo form recordedNo frequency recordedNo route recordedNo set duration recordedNo set duration amount recordedactiveNo dosage strength recordedNo dosage strength units of measure recorded active methylphenidateTakeN o date recordedNo form recordedNo frequency recordedNo route recordedNo set duration recordedNo set duration amount recordedactiveNo dosage strength recordedNo dosage strength units of measure recorded active atorvastatinTakeNo d ate recordedNo form recordedNo frequency recordedNo route recordedNo set duration recordedNo set duration amount recordedactiveNo dosage strength recordedNo dosage strength units of measure recorded active Problems Problem Status Onset Date Problem Type Date of Resoluti on Source Hypertension active ProblemAct [facility] SONE Attention-deficit hyperactivity disorder, unspecified type active ProblemAct [facility]PHYSONE Anxiety disorder, unspecified active ProblemAct [facility] Depression active ProblemAct [facility]PHYSO NE Restless legs syndrome active ProblemAct [facility]_PHYSONE Left lower quadrant pain active 2023-06-18 ProblemAct [facility]_PHYSONE
--- OUTSIDE RECORDS SUMMARY | 2024-06-01 07:54 | XMS_ITS | Data Portability ---
Author Organization [facility] Address [address] [facility] [address] [place] [id number] Care Team Providers Care Real Property Evaluator Name Role Phone SEAN HICKS Primary Care Provider Assessment Encounter Date Assessment Date Assessment LastModified by Organization Details LastModified Time 01/30/2023 01/30/2023 Stephanie Albert is a 67 year old woman with low back pain radiating occasionally into the right lower extremity. On exam ,she has pain on flexion. MRI Lumbar spine shows mild degenerative disease. At L3-L4, disc degeneration disc bulging to the left with superimposed central/right paracentral disc protrusion. Facet arthropathy. Mild right neural foraminal narrowing . Trial of Lumbar epidural steroid injections under fluoroscopic guidance was recommended. The risks and benefits of the procedure?? were discussed in detail. She wishes to proceed. An appointment has been booked for the same. She needs a cross country truck driver on the day of the procedure. [email or web address] Not available 01/30/2023 09:52:54 02/13/2023 02/13/2023 Stephanie Albert is a 67 year old woman with low back pain radiating occasionally into the right lower extremity. On exam ,she has pain on flexion. MRI Lumbar spine shows mild degenerative disease. At L3-L4, disc degeneration disc bulging to the left with superimposed central/right paracentral disc protrusion. Facet arthropathy. Mild right neural foraminal narrowing . She is here for a trial of Lumbar epidural steroid injections under fluoroscopic guidance . The risks and benefits of the procedure?? were discussed in detail. She wishes to proceed. She will follow up in four weeks. [email or web address] Not available 02/13/2023 09:54:18 07/21/2023 07/21/2023 Stephanie Albert is a 68 year old woman with complaints of neck pain and low back pain. Her worse pain is in her low back and radiates into her right lower extremity for the past one month. She is doing chiropractic therapy and states her pain is greater after therapy. On exam, she has pain on flexion and a positive straight leg raising test on the right. I recommend a MRI lumbar spine to elucidate the cause of her pain. She will follow up to review the same and for further treatment plans. I have encouraged to continue physical therapy and discussed the importance of core strengthening. [email or web address] Not available 07/21/2023 13:20:02 09/03/2023 09/03/2023 Stephanie Albert is a 68 year old woman with low back pain radiating occasionally into the right lower extremity. On exam ,she has pain on flexion. MRI Lumbar spine shows mild degenerative disease. At L3-L4, disc degeneration disc bulging to the left with superimposed central/right paracentral disc protrusion. Facet arthropathy. Mild right neural foraminal narrowing . She is here for a Lumbar epidural steroid injections under fluoroscopic guidance . The risks and benefits of the procedure?? were discussed in detail. She wishes to proceed. She will follow up in three months. [email or web address] Not available 09/03/2023 14:25:11 04/22/2024 04/22/2024 Stephanie Albert is a 69 year old woman with low back pain radiating occasionally into the right lower extremity. On exam ,she has pain on flexion. MRI Lumbar spine shows mild degenerative disease. At L3-L4, disc degeneration disc bulging to the left with superimposed central/right paracentral disc protrusion. Facet arthropathy. Mild right neural foraminal narrowing . She is here for a Lumbar epidural steroid injections under fluoroscopic guidance . The risks and benefits of the procedure?? were discussed in detail. She wishes to proceed. She will follow up in three months. [email or web address] Not available 04/23/2024 09:38:57 Plan of Treatment Reminders Order Date Submit Date Provider Last Modified By Organization Details Last Modified Time Details Appointments PROCEDURE 2024 02:30P M Geovani lake MD Not available Not available Not available Lab None recorded. Referral None recorded. Procedures None recorded. Surgeries None recorded. Imaging MRI, lumbar spine, w/o contrast - Please schedule with patient 2023 024 [facility] [address] [place], [address], 08/08/2023 09:38:55 Medication Orders None recorded. Patient TargetsNo targets recorded. Patient Instructions Encounter Date Encounter Id Patient Instructions Last Modified By Organization Details Last Modified Time 02/13/2023 [id number] She was advised against bed rest lasting longer than four days and to continue activities as tolerated. [email or web address] Not available 02/13/2023 09:53:54 09/03/2023 [id number] She was advised against bed rest lasting longer than four days and to continue activities as tolerated. [email or web address] Not available 09/03/2023 14:23:47 04/22/2024 [id number] She was advised against bed rest lasting longer than four days and to continue activities as tolerated. [email or web address] Not available 04/23/2024 09:35:55 Reason for Referral None Reported. Results Created Date Observation Date Name Description Value Unit Range Abnormal Flag Note LastModifiedBy Organization Detail LastModifiedTime 08/08/19 24 08/08/2023 MRI, lumba r spine , w/o contr ast No observ ation record ed. [facility] Dept [address] [place], [address], 08/11/2023 11:07:26 Result Notes None recorded. Problems Name Problem SNOMED Code Status Onset Date Resolution Date Notes Provider Name and Address Organization Details Recorded Time Lumbar radiculopathy 591989345 Active 2022 Geovani lake MD [address] , [address], [facility] [place], [address], [place] [facility] 3 09:53:17 Degeneration of lumbar intervertebral disc 78743163 Active 2022 Geovani lake MD [address] , [address], [facility] [place], [address], [place] [facility] 3 09:53:18 Problem Notes None recorded. Procedures Surgical History Date Name Laterality Status Provider Name and Address Organization Details Recorded Time 04/22/20 24 Lumbar Epidural steroid injection under fluoroscopic guidance completed Geovani Sweeney MD [address] , [address], [place], [address], [place] [facility] 04/23/2024 09:37:38 09/03/19 24 Lumbar Epidural steroid injection under fluoroscopic guidance completed Geovani Sweeney MD [address] , [address], [place], [address], [place] [facility] 09/03/2023 14:24:31 02/14/20 23 Lumbar Epidural steroid injection under fluoroscopic guidance completed Geovani Sweeney MD [address] , [address], [place], [address], [place] [facility] 02/13/2023 09:53:03 05/05/19 23 Total knee arthroplasty completed Stephanie Vasquez [place] [facility] 01/30/2023 09:09:18 05/05/19 22 open reduction of dislocation of shoulder completed Stephanie Vasquez [place] [facility] 01/30/2023 09:10:11 05/05/19 18 Total hip arthroplasty completed Stephanie Vasquez [place] [facility] 01/30/2023 09:09:01 Imaging Results Imaging Date Name Status LastModified by Organiz ation Details LastModified Time 08/08/2023 MRI, lumbar spine, w/o contrast completed [facility] [address] [place] [address], [place], [address], 08/11/2023 11:07:26 Procedure Notes None recorded. Medical Equipment None Reported. Allergies No known drug allergies Medications Name Sig Start Date Stop Date Status Note LastModified by Organization Details LastModified Time atorvastati n 40 mg tablet TAKE 1 TABLET BY MOUTH EVERY DAY DIRECTED active Not Available Not Available No t Available venlafaxine ER 75 mg capsule,ext ended release 24 hr 07/20 completed Not Available Not Available Not Available valacyclovi r 1 gram tablet TAKE 2 TABLETS BY MOUTH EVERY 12 HOURS FOR 1 DAY FOR COLD CORES DIRECTED active Not Available Not Available No t Available methylpheni date 20 mg tablet TAKE 2 TABS EVERY MORNING AND 1 EVERY EVENING active Not Available Not Available No t Available meloxicam 15 mg tablet TAKE 1 TABLET BY MOUTH EVERY DAY DIRECTED FOR 90 DAYS active Not Available Not Available No t Available prednisone 20 mg tablet TAKE 2 TABLETS EVERY DAY BY ORAL ROUTE IN THE MORNING FOR 3 DAYS. 01/30 completed Not Available Not Available Not Available lamotrigine 25 mg tablet TAKE 2 TABLETS BY MOUTH IN THE MORNING AND TAKE 1 TABLET AT BEDTIME active Not Available Not Available No t Available lorazepam 0.5 mg tablet TAKE 1 TABLET BY MOUTH TWICE A DAY NEEDED FOR 15 DAYS active Not Available Not Available No t Available benzonatate 100 mg capsule TAKE 1 CAPSULE BY MOUTH THREE TIMES A DAY NEEDED FOR 5 DAYS 07/20 completed Not Available Not Available Not Available ropinirole 2 mg tablet TAKE 1 TABLET BY MOUTH THREE TIMES A DAY NEEDED active Not Available Not Available No t Available trazodone 150 mg tablet TAKE 1 TO 2 TABLETS BY MOUTH AT BEDTIME NEEDED active Not Available Not Available No t Available lisinopril 10 mg tablet TAKE 1 TABLET BY MOUTH EVERY DAY active Not Available Not Available No t Available omeprazole 20 mg capsule,del ayed release TAKE 2 CAPSULES BY MOUTH EVERY MORNING *MAX 1 CAPSULE PER DAY PER INSURANCE * active Not Available Not Available No t Available hydrochloro thiazide 25 mg tablet TAKE 1 TABLET BY MOUTH EVERY DAY DIRECTED active Not Available Not Available No t Available methylpredn isolone 4 mg tablets in a dose pack TAKE 6 TABLETS ON DAY 1 DIRECTED ON PACKAGE AND DECREASE BY 1 TAB EACH DAY FOR A TOTAL OF 6 DAYS active Not Available Not Available No t Available albuterol sulfate HFA 90 mcg/actuati on aerosol inhaler INHALE 2 PUFFS BY MOUTH EVERY 4 HOURS NEEDED active Not Available Not Available No t Available fluticasone propionate 50 mcg/actuati on nasal spray,suspe nsion SPRAY 1 SPRAY INTO EACH NOSTRIL EVERY DAY DIRECTED FOR 30 DAYS FOR ALLERGY SYMPTOMS active Not Available Not Available No t Available oxycodone 5 mg tablet TAKE 1/2 TABLET BY MOUTH EVERY 6 HOURS NEEDED FOR PAIN active Not Available Not Available No t Available Paxlovid 300 mg (150 mg x 2)-100 mg tablets in a dose pack TAKE 3 TABLETS BY MOUTH TWICE A DAY DIRECTED FOR 5 DAYS 02/13 completed Not Available Not Available Not Available Vitals Date Recorded Body height Body mass index (BMI) Body weight Oxygen saturation Oxygen saturation in Arterial blood by Pulse oximetry Heart rate Systolic blood pressure Diastolic blood pressure Provider Name and Address Organization Details Last Updated DateTime 3 165.1 cm 27 kg/m2 87915.9 6 g 99 % 99 % 72 /min 137 mm[Hg] 86 mm[Hg] Stephanie Vasquez [facility] 3 08:59:17 Date Recorded Body height Heart rate Oxygen saturation Oxygen saturation in Arterial blood by Pulse oximetry Systolic blood pressure Diastolic blood pressure Provider Name and Address Organization Details Last Updated DateTime 3 165.1 cm 99 /min 99 % 99 % 178 mm[Hg] 98 mm[Hg] Kristyn King [place] [facility] 3 09:35:32 Date Recorded Body height Heart rate Oxygen saturation Oxygen saturation in Arterial blood by Pulse oximetry Systolic blood pressure Diastolic blood pressure Provider Name and Address Organization Details Last Updated DateTime 4 165.1 cm 103 /min 97 % 97 % 148 mm[Hg] 101 mm[Hg] Marlena Chaudharijyoti o [place] - [facility] 4 10:37:53 Date Recorded Body height Oxygen saturation Oxygen saturation in Arterial blood by Pulse oximetry Heart rate Systolic blood pressure Diastolic blood pressure Provider Name and Address Organization Details Last Updated DateTime 4 165.1 cm 97 % 97 % 88 /min 157 mm[Hg] 90 mm[Hg] Marlena Chaudhariegrin o [place] - [facility] 4 13:58:29 Date Recorded Body height Heart rate Oxygen saturation Oxygen saturation in Arterial blood by Pulse oximetry Systolic blood pressure Diastolic blood pressure Provider Name and Address Organization Details Last Updated DateTime 4 165.1 cm 83 /min 96 % 96 % 146 mm[Hg] 85 mm[Hg] Marlena Chaudhariegrin o [place] [facility] 4 15:08:28 Social History Question Answer Notes LastModified by Organizat ion Details LastModified Time Tobacco Smoking Status Former Smoker Stephanie Vasquez [place] [facility] 01/30/2023 09:05:18 What Is Your Level Of Alcohol Consumption? Occasional [email or web address] Information not available 01/30/2023 Are You Blind Or Do You Have Difficulty Seeing? No [email or web address] Information not available 01/30/2023 In The 14 Days Before Symptom Onset, Have You Had Close Contact With A Laboratory-confir med COVID-19 While That Case Was Ill? No [email or web address] Information not available 01/30/2023 In The 14 Days Before Symptom Onset, Have You Had Close Contact With A Person Who Is Under Investigation For COVID-19 While That Person Was Ill? No [email or web address] Information not available 01/30/2023 Have You Been To An Area Known To Be High Risk For COVID-19? No [email or web address] Information not available 01/30/2023 Are You Currently Employed? Yes [email or web address] Information not available 01/30/2023 Are You Deaf Or Do You Have Serious Difficulty Hearing? No [email or web address] Information not available 01/30/2023 What Is The Highest Grade Or Level Of School You Have Completed Or The Highest Degree You Have Received? OK30693-3 [email or web address] Information not available 01/30/2023 What Is Your Occupation? Information not available 01/30/2023 How Many Days Of Moderate To Strenuous Exercise, Like A Brisk Walk, Did You Do In The Last 7 Days? 4 [email or web address] Information not available 01/30/2023 On Those Days That You Engage In Moderate To Strenuous Exercise, How Many Minutes, On Average, Do You Exercise? 45 [email or web address] Information not available 01/30/2023 What Was The Date Of Your Most Recent Tobacco Screening? 01/30/2023 [email or web address] Information not available 01/30/2023 What Is Your Relationship Status? [email or web address] Information not available 01/30/2023 Do You Feel Stressed (tense, Restless, Nervous, Or Anxious, Or Unable To Sleep At Night)? [id number] [email or web address] Information not available 01/30/2023 Do You Use Any Illicit Or Recreational Drugs? No [email or web address] Information not available 01/30/2023 How Many Years Have You Smoked Tobacco? 20 [email or web address] Information not available 01/30/2023 Do You Or Have You Ever Used Any Other Forms Of Tobacco Or Nicotine? No [email or web address] Information not available 01/30/2023 Sex: Female Functional Status Question Answer Note LastModified by Organization D etails LastModified Time Do you have difficulty walking or climbing stairs? Yes [email or web address] Information not available 01/30/2023 Do you have difficulty doing errands alone? No [email or web address] Information not available 01/30/2023 Do you have difficulty dressing or bathing? No [email or web address] Information not available 01/30/2023 Mental Status Question Answer Note LastModified by Organizat ion Details LastModified Time Do you have difficulty concentrating, remembering or making decisions? Yes ADHD on ritalin [email or web address] Information not available 01/30/2023 Family History Relationship Description Onset Age of this Age Resolved Age Notes LastModified by Organization Details LastModified Time Father No current problems or disability 50 85 cardia c, high trigly ceride s, spine pain Not available 01/30/2023 09:03:17 Mother No current problems or disability 67 afib, osteo arthri tis, htn [email or web address] Not available 01/30/2023 09:03:53 Medical History Condition Response Coronary Artery Disease N Gout N Neuropathy/Neuralgia N Kidney Stones N Hyperthyroidism N Hypothyroidism N Depression N COPD N Hepatitis C N Migrane N Diabetes N Anxiety Disorder N Arthritis Y Seizures/Epilepsy N Hyperlipidemia Y Cancer N Stroke N Asthma Y HIV/AIDS N Headache N Bipolar Disorder N High Cholesterol N GERD/Reflux Y Liver Disease N Pulmonary Embolism N Fibromyalgia N Irritable Bowel Syndrome N Hypertension Y Osteoporosis N Kidney Disease N Gynecological HistoryNo gynecological history recorded. Obstetrics History GPAL:G 0 P 0 0 0 0 Immunizations Vaccine Type Date Status Note Provider Nam e and Address Organization Details Recorded Time COVID-19, mRNA, LNP-S, PF, 30 mcg/0.3 mL dose, jose-sucrose 2 completed Stephanie porter [place] [facility] 01/30/2023 09:13:39 Respiratory syncytial virus (RSV) vaccine, unspecified 3 completed Marlena porter [place] [facility] 07/21/2023 10:46:08 pneumococcal polysaccharide PPV23 3 completed Marlena porter [place] - [facility] 07/21/2023 10:46:34 influenza, unspecified formulation 3 completed Marlena porter [place] - [facility] 07/21/2023 10:47:11 Past Encounters Encounter ID Performer Location Encounter Start Date Encounter Closed Date Diagnosis/Indication Diagnosis SNOMED-CT Code Diagnosis ICD10 Code Diagnosis Note [id number] Geovani Sweeney MD PAIN OFFICE [address] [facility] [place] [address] 01/30/2023 08:45:16 01/30/2023 09:53:36 Lumbar radiculopathy 875594820 M54.16 Degenerati on of lumbar intervertebral disc 28797250 M51.36 [id number] Geovani Sweeney MD PAIN OFFICE [address] [facility] [place] [address] 02/13/2023 09:23:06 02/13/2023 13:41:28 Lumbar radiculopathy 456014686 M54.16 Degenerati on of lumbar intervertebral disc 79251349 M51.36 [id number] Geovani Sweeney MD PAIN OFFICE [address] [facility] [place] [address] 07/21/2023 10:30:27 07/21/2023 14:39:24 Lumbar radiculopathy 665406660 M54.16 Degenerati on of lumbar intervertebral disc 19757575 M51.36 [id number] Geovani Sweeney MD PAIN OFFICE [address] [facility] [place] [address] 09/03/2023 13:53:54 09/03/2023 14:33:37 Lumbar radiculopathy 304702973 M54.16 Degenerati on of lumbar intervertebral disc 59961530 M51.36 [id number] Geovani Sweeney MD PAIN OFFICE [address] [facility] [place] [address] 04/22/2024 14:57:19 04/23/2024 10:56:24 Lumbar radiculopathy 164008810 M54.16 Degenerati on of lumbar intervertebral disc 32158664 M51.362 Health Concerns Section Related Observation LastModified by Organization Detai ls LastModified Time None Recorded Concern Status LastModified by Organization Details LastModified Time None Recorded Advance Directives Directive None Recorded Payers Encounter Date Sequence Insurance Name Policy Number Policy Rogers Covered Member ID Rogers Member ID Guarantor Name 01/30/2023 1 [place] [employer] Stephanie Fountainon [id number] Stephanie Fountainon 01/30/2023 2 UNICARE - GIC INDEMNITY PLAN (MEDICARE SUPPLEMENT) [id number] Stephanie Fountainon [id number] Stephanie Fountainon 02/13/2023 1 [place] [employer] Stephanie Roosevelt [id number] Stephanie Roosevelt 02/13/2023 2 [employer]IC[employer] - [employer]IC INDEMNITY PLAN (MEDICARE SUPPLEMENT) [id number] 2 Stephanie Roosevelt [id number] Stephanie Roosevelt 07/21/2023 1 [place] [employer] Stephanie Roosevelt [id number] Stephanie Roosevelt 07/21/2023 2 [employer] - [employer]IC INDEMNITY PLAN (MEDICARE SUPPLEMENT) [id number] Stephanie Roosevelt [id number] Stephanie Fountainon 09/03/2023 1 [place] [employer] Stephanie Roosevelt [id number] Stephanie Roosevelt 09/03/2023 2 [employer] - [employer]IC INDEMNITY PLAN (MEDICARE SUPPLEMENT) [id number] 2 Stephanie Roosevelt [id number] Stephanie Roosevelt 04/22/2024 1 [place] [employer] Stephanie Fountainon [id number] Stephanie Roosevelt 04/22/2024 2 [employer]IC[employer] - [employer]IC INDEMNITY PLAN (MEDICARE SUPPLEMENT) [id number] 2 Stephanie Roosevelt [id number] Stephanie Albert Notes Date Note Type Note Provider Name and Address Organization Details Recorded Time 01/30/2023 text/html Stephanie Albert is a 67 year old woman with complaints of low back pain radiating into right lower extremity. She has history of arthritis and is S/P Left total hip and knee replacement by Dr. Santo. She reports a fall in 12/2021 with increased pain in her low back and right lower extremity. She had similar pain in 2018 and had a MRI in [facility] and had seen Dr. Herrera. She had right sacroiliac joint injections done. She does not recall the pain benefit. She describes the pain as a sharp shooting pain. from her right buttock region to the right leg with numbness, tingling and weakness in her right lower extremity. Current pain level is 5-10/10. Pain is aggravated by standing and walking . Pain is relieved a little with application of heat. She is unable to sleep due to positioning and awakens multiple times at night due to pain. She has no history of bladder or bowel incontinence.MRI Lumbar spine done in [address] [facility] shows mild degenerative disease. At L3-L4, disc degeneration disc bulging to the left with superimposed central/right paracentral disc protrusion. Facet arthropathy. Mild right neural foraminal narrowing.She has trialed physical therapy with some pain benefit. Geovani Sweeney MD [address] , [address], [place], [address], [facility] - Pain Management 01/31/2023 10:40:14 02/13/2023 text/html She is here for a trial of lumbar epidural steroid injection under fluoroscopic guidance. Geovani Sweeney MD [address] , [address], [place], [address], [facility] - Pain Management 02/13/2023 13:52:16 07/21/2023 text/html She is here for a follow up after a lumbar epidural steroid injection under fluoroscopic guidance on 02/13/2023. She reports some pain benefit. 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 She has been having neck pain and low back pain. She has had recent X-rays which show degenerative changes in lumbar and cervical spine. Her worse pain is her low back pain. She is S/P Left hip replacement and is having some groin pain. She is seeing Dr. Santo, her orthopedic surgeon for her hip pain. Her lst imaging study was in 2018 and she feels her pain is greater now and is limiting her ability to do things around the house. She has no history of bladder or bowel incontinence. Geovani Seweney MD [address] , [address], [place], [address], [facility] Pain Management 07/21/2023 16:12:51 09/03/2023 text/html She is here for a lumbar epidural steroid injection under fluoroscopic guidance. Geovani Sweeney MD [address] [facility] , [address], [place], [address], [facility] Pain Management 09/03/2023 14:35:16 04/22/2024 text/html She is here for a lumbar epidural steroid injection under fluoroscopic guidance.She states she has pain in left groin region. S/P left total hip replacement 5 years ago. Geovani Sweeney MD [address] [facility] [facility] [address], [place], [address], [facility] Pain Management 04/23/2024 11:08:50 OBGyn Episode No OBEpisode recorded.
--- OUTSIDE RECORDS SUMMARY | 2024-06-01 07:55 | XMS_ITS | Clinical Summary ---
Author Organization Patient Business Ser [facility] Address [address] [place] [address] Care Team Providers Care Design Drafter Name Role Phone Paige Zafar Primary Care Provider [phone] Surgical History Surgery Date Site/Laterality Comments HYSTERECTOMY PROCEDURE:HYSTERECTOMY WRIST SURGERY PROCEDURE:WRIST SURGERY HAND SURGERY PROCEDURE:HAND SURGERY JOINT REPLACEMENT PROCEDURE:JOINT REPLACEMENT SHOULDER SURGERY PROCEDURE:SHOULDER SURGERY Medical History Medical History Date Comments High blood pressure DX:High bloo d pressure Arthritis DX:Arthritis Family History Medical History Relation Name Comments Heart disease Mother Hypertension Mother Relation Name Status Comments Mother Social History Tobacco Use Types Packs/Day Years Used Date Smoking Tobacco: Former Alcohol Use Standard Drinks/Week Comments Yes 0 (1 standard drink = 0.6 oz pur e alcohol) Sex and Gender Information Value Date Recorded Sex Assigned at Not on file Gender Identity Not on file Sexual Orientation Not on file Obstetrics History Last Filed Vital Signs Vital Sign Reading Time Taken Comments Blood Pressure 160/84 04/04/2022 8:45 AM EST Sitting Right arm Pulse 96 04/04/2022 8:45 AM EST Temperature - - Respiratory Rate - - Oxygen Saturation - - Inhaled Oxygen Concentration - - Weight 79.2 kg (174 lb 9.6 oz) 04/04/2022 8:45 AM EST Height 162.6 cm (5' 4 ) 04/04/2022 8:45 AM EST Body Mass Index 29.97 04/04/2022 8:45 AM EST Plan of Treatment Health Maintenance Due Date Last Done Comments Breast Cancer Screening 1955 DTaP,Tdap,and Td Vaccines (1 - Tdap) 1976 Zoster Vaccines (1 of 2) 2007 Colorectal Cancer Screening: Colonoscopy 10/06/2020 Depression Screening 10/06/2020 Hepatitis C Screening 10/06/2020 Osteoporosis Screening (Bone Density Screening) 10/06/2020 Social Influencers of Health Screening 10/06/2020 Falls Risk Assessment 2022 Pneumococcal Vaccine: 65+ Ye ars (1 of 1 - PCV) 2022 COVID-19 Vaccine (1 - 2023-2 5 season) 2024 Influenza Vaccine (#1) 2024 RSV Immunization Patients 60 + Years Old (1 - 1-dose 75+ series) 2032 HIB Vaccines Aged Out No longer eligi ble based on patient's age to complete this topic HPV Vaccines Aged Out No longer eligi ble based on patient's age to complete this topic Hepatitis A Vaccines Aged Out No long er eligible based on patient's age to complete this topic Hepatitis B Vaccines Aged Out No long er eligible based on patient's age to complete this topic IPV Vaccines Aged Out No longer eligi ble based on patient's age to complete this topic MMR Vaccines Aged Out No longer eligi ble based on patient's age to complete this topic Meningococcal ACWY Vaccine Aged Out N o longer eligible based on patient's age to complete this topic RSV Immunization Patients Un reed 20 months Aged Out No longer eligible b ased on patient's age to complete this topic Varicella Vaccines Aged Out No longer eligible based on patient's age to complete this topic Care Teams Design Drafter Relationship Specialty Start Date End Date Paige Zafar PA [address] [address] PCP - General Physician Core Cleaner 12/17/16
== END 2024-06-01 08:10 | disposition home or self-care (01) ==
PROVIDERS: Visit Provider Orthopaedic Surgery
DX: M17.11 Unilateral primary osteoarthritis, right knee (principal)
CPT/HCPCS: 20610; 99213

== ENCOUNTER → 2024-06-01 07:50 | Outpatient (BNVA) | payer MEDICARE, OTHER, SELFPAY | PROVIDERS: Visit Provider Orthopaedic Surgery | DX: M17.11 Unilateral primary osteoarthritis, right knee (principal) | CPT/HCPCS: 20610; 99212; J1010; J2003 ==

== ENCOUNTER 2024-08-19 12:34 | Outpatient (REF) | payer MEDICARE, OTHER, SELFPAY ==
--- OUTSIDE RECORDS SUMMARY | 2024-08-19 15:22 | XMS_ITS | Clinical Summary ---
Author Organization Formerly [facility], [facility] Address [address] [place] [address] Care Team Providers Care Smt Machine Operator Name Role Phone Unavailable Primary Care [...]
--- OUTSIDE RECORDS SUMMARY | 2024-08-19 15:22 | XMS_ITS | Data Portability ---
Author Organization [facility], [address] Address [address] [place] [address] Assessment No assessment recorded. Plan of Treatment Reminders Order Date Submit Date Provider Last Modified By Organization Details Last Modified Time Details Appointments None recorded. Lab None recorded. Referral None recorded. Procedures None recorded. Surgeries None recorded. Imaging None recorded. Medication Orders Allergy Relief (fluticason e) 50 mcg/actuati on nasal spray,suspe nsion 2022 023 [id number], [address], [place], [address], 3 19:21:32 prednisone 20 mg tablet 2022 023 [id number], [address], [place], [address], 3 19:21:31 albuterol sulfate HFA 90 mcg/actuati on aerosol inhaler 2022 023 [id number], [address], [place], [address], 3 19:21:32 benzonatate 100 mg capsule 2022 023 [id number], [address], [place], [address], 3 19:21:32 Patient TargetsNo targets recorded. Patient Instructions Encounter Date Encounter Id Patient Instructions Last Modified By Organization Details Last Modified Time 12/22/2022 [id number] cough: care instructions [email or web address] Not available 12/22/2022 [...] and Address Organization Details Recorded Time Hyperlipidemia 44193995 Active 2022 ADIA porter PA - [facility] 3 18:37:29 Hypertensive disorder 99763443 Active 2022 ADIA porter PA - [facility] 3 18:37:34 Restless legs 74347788 Active 2022 ADIA porter PA - [facility] 3 18:37:39 Exercise-induce d asthma 17317151 Active 2022 ADIA porter PA - [facility] 3 18:37:55 Problem Notes None recorded. Procedures Surgical History Date Name Laterality Status Provider Name and Address Organization Details Recorded Time [facility] 12/22/2022 18:38:42 procedure on hip completed [facility] PA - [facility] 12/22/2022 18:38:52 procedure on shoulder completed [facility] PA - [facility] 12/22/2022 18:39:11 Imaging [...] t Available Vitals Date Recorded Body height Body mass index (BMI) Body weight Pain severity - 0-10 verbal numeric rating [Score] - Reported Respiratory rate Oxygen saturation Oxygen saturation in Arterial blood by Pulse oximetry Heart rate Body temperature Systolic blood pressure Diastolic blood pressure Provider Name and Address Organization Details Last Updated DateTime 3 167.64 cm 25.5 kg/m2 35472.5 9 g 0 17 /min 100 % 100 % 76 /min 97.9 [degF] 153 mm[Hg] 89 mm[Hg] [facility] - [facility] 3 18:40:11 Social History Question Answer Notes LastModified by Organizat ion Details LastModified Time Tobacco Smoking Status Former Smoker AMANDA Burgos - [facility] 12/22/2022 18:38:14 What Is Your Level Of Alcohol Consumption? Occasional Information not available 12/22/2022 When Did You Quit Smoking? 16+yearssincel astcigarette [email or web address] Information not available 12/22/2022 Do You Use Any Illicit Or Recreational Drugs? No [email or web address] Information not available 12/22/2022 Have You Recently Traveled Abroad? No [email or web address] Information not available 12/22/2022 Sex: Unknown Functional [...] SNOMED-CT Code Diagnosis ICD10 Code Diagnosis Note [id number] [address] [place] [address] 2018 11:32:21 2018 12:21:38 [id number] [address] [place] [address] 04/13/2018 15:55:10 04/13/2018 17:12:50 [id number] [address] [place] [address] 02/21/2017 15:35:25 02/21/2017 16:51:22 [id number] [address] [place] [address] 04/16/2015 13:47:23 04/16/2015 15:39:47 [id number] [address] [place] [address] 05/06/2018 16:43:14 05/06/2018 17:35:59 [id number] [address] [place] [address] 03/17/2021 17:48:47 03/17/2021 18:50:23 [id number] [address] [place] [address] 09/02/2019 11:08:21 09/02/2019 11:52:06 [id number] [address] [facility] [place] [address] 06/01/2018 08:12:01 06/01/2018 09:52:26 [id number] [address] [facility] [address] 10/05/2016 19:26:21 10/05/2016 19:42:32 [id number] [address] [facility] [place] [address] 12/05/2018 15:48:07 12/05/2018 17:08:43 [id number] [address] [place] [address] 06/09/2015 12:04:16 06/09/2015 13:10:05 [id number] [address] [place] [address] 01/01/2019 15:22:45 01/01/2019 16:34:34 [id number] Tree Bowman [employer]QU[employer]MENT OPER[employer] [address] [place] [address] 12/22/2022 18:08:41 12/22/2022 19:22:02 Acute bronchitis 87665914 J20.9 Health Concerns Section Related Observation LastModified by Organization Detai ls LastModified Time None Recorded Concern Status LastModified by Organization Details LastModified Time None Recorded Advance Directives Directive None Recorded Payers Encounter Date Sequence Insurance Name Policy Number Policy Rogers Covered Member ID Rogers Member ID Guarantor Name 09/02/2019 2 [facility] (PP[facility] [id number] 2 Temo Albert [id number] Stephanie Albert 03/17/2021 2 [facility] ([facility] [id number] 2 Temo Albert [id number] Stephanie Albert 12/22/2022 1 MEDICARE [place]: [employer] Stephanie Albert [id number] Stephanie Albert 12/22/2022 2 [facility] [id number] Temo Albert [id number] Stephanie Albert Notes Date Note Type Note [...] Bowman NP [address] [place], [address], PA - [facility] 12/22/2022 19:21:51 OBGyn Episode No OBEpisode recorded.
--- OUTSIDE RECORDS SUMMARY | 2024-08-19 15:22 | XMS_ITS | Data Portability ---
Author Organization [facility] Address [address] [facility] [address] [place] [id number] Care Team Providers Care Internet Marketing Assistant Name Role Phone SEAN HICKS Primary Care Provider Assessment Encounter Date Assessment Date Assessment LastModified by Organization Details LastModified Time 02/13/2023 02/13/2023 Stephanie Albert is a 67 [...] three months. [email or web address] Not available 04/23/2024 09:38:57 07/28/2024 07/28/2024 Stephanie Albert is a 69 year old [...] up in three months. [email or web address] Not available 07/28/2024 11:21:00 Plan of Treatment Reminders Order Date Submit Date Provider Last Modified By Organization Details Last Modified Time Details Appointments PROCEDURE 2024 02:30P M Geovani lake MD Not available Not available Not available Lab None recorded. Referral None recorded. Procedures None recorded. Surgeries None recorded. Imaging MRI, lumbar spine, w/o contrast - Please schedule with patient 2023 024 RAMIR[facility], [address] [place], [address], 08/08/2023 09:38:55 Medication Orders None recorded. Patient TargetsNo targets recorded. Patient Instructions Encounter Date Encounter Id Patient Instructions Last Modified By Organization Details Last Modified Time 02/13/2023 [id number] She was advised against bed rest lasting longer than four days and to continue activities as tolerated. [email or web address] Not available 02/13/2023 09:53:54 09/03/2023 [id number] She was advised against bed rest lasting longer than four days and to continue activities as tolerated. [email or web address] Not available 09/03/2023 14:23:47 04/22/2024 [id number] She was advised against bed rest lasting longer than four days and to continue activities as tolerated. [email or web address] Not available 04/23/2024 09:35:55 07/28/2024 [id number] She was advised against bed rest lasting longer than four days and to continue activities as tolerated. [email or web address] Not available 07/28/2024 11:21:01 Reason for Referral None Reported. Results Created Date Observation Date Name Description Value Unit Range Abnormal Flag Note LastModifiedBy Organization Detail LastModifiedTime 08/08/19 24 08/08/2023 MRI, lumba r spine , w/o contr ast No observ ation record ed. [facility] [address] [place], [address], 08/11/2023 11:07:26 Result Notes None recorded. Problems Name Problem SNOMED Code Status Onset Date Resolution Date Notes Provider Name and Address Organization Details Recorded Time Lumbar radiculopathy 759184704 Active 2022 Geovani lake MD [address] , [address], [place], [address], [facility] 09:53:17 Degeneration of lumbar intervertebral disc 18481613 Active 2022 Geovani lake MD [address] , [address], [place], [address], [place] [facility] 09:53:18 Problem Notes None recorded. Procedures Surgical History Date Name Laterality Status Provider Name and Address Organization Details Recorded Time 07/29/19 25 Lumbar Epidural steroid injection under fluoroscopic guidance completed Geovani Sweeney MD [address] , [address], [place], [address], [place] [facility] 07/28/2024 11:21:16 04/22/20 24 Lumbar Epidural steroid injection under fluoroscopic guidance completed Geovani Sweeney MD [address] , [address], [place], [address], [place] [facility] 04/23/2024 09:37:38 09/03/19 24 Lumbar Epidural steroid injection under fluoroscopic guidance completed Geovani Sweeney MD [address] , [address], [place], [address], [place] [facility] 09/03/2023 14:24:31 02/14/20 23 Lumbar Epidural steroid injection under fluoroscopic guidance completed Geovani Sweeney MD [address] , [address], [place], [address], [place] [facility] 02/13/2023 09:53:03 [...] 08/08/2023 MRI, lumbar spine, w/o contrast completed [facility] [address] [place] [address], [place], [address], 08/11/2023 11:07:26 Procedure Notes None recorded. Medical [...] methylpheni date 20 mg tablet TAKE 2 TABLETS BY MOUTH EVERY MORNING AND 1 TABLET AT 3 PM active Not Available Not Available No t [...] mg tablet TAKE 2 TABLETS BY MOUTH EVERY MORNING AND 1 TABLET AT BEDTIME active Not Available [...] DAY FOR A TOTAL OF 6 DAYS 07/28 completed Not Available Not Available Not Available albuterol sulfate HFA 90 mcg/actuati on [...] Not Available Vitals Date Recorded Body height Heart rate Oxygen saturation Oxygen saturation in Arterial blood by Pulse oximetry Systolic blood pressure Diastolic blood pressure Provider Name and Address Organization Details Last Updated DateTime 3 165.1 cm 99 /min 99 % 99 % 178 mm[Hg] 98 mm[Hg] Kristyn Fernando [place] [facility] 3 09:35:32 Date Recorded Body height Heart rate Oxygen saturation Oxygen saturation in Arterial blood by Pulse oximetry Pain severity - 0-10 verbal numeric rating [Score] - Reported Systolic blood pressure Diastolic blood pressure Provider Name and Address Organization Details Last Updated DateTime 4 165.1 cm 103 /min 97 % 97 % 9 148 mm[Hg] 101 mm[Hg] Marlena Chaudharijyoti o [place] - [facility] 4 10:37:53 Date Recorded Body height Pain severity - 0-10 verbal numeric rating [Score] - Reported Oxygen saturation Oxygen saturation in Arterial blood by Pulse oximetry Heart rate Systolic blood pressure Diastolic blood pressure Provider Name and Address Organization Details Last Updated DateTime 4 165.1 cm 10 97 % 97 % 88 /min 157 mm[Hg] 90 mm[Hg] Marlena Chaudharisarah bethrin o [place] - [facility] 4 13:58:29 Date Recorded Body height Heart rate Oxygen saturation Oxygen saturation in Arterial blood by Pulse oximetry Pain severity - 0-10 verbal numeric rating [Score] - Reported Systolic blood pressure Diastolic blood pressure Provider Name and Address Organization Details Last Updated DateTime 4 165.1 cm 83 /min 96 % 96 % 10 146 mm[Hg] 85 mm[Hg] Marlena Chaudharisarah bethrin o [place] [facility] 4 15:08:28 Date Recorded Body height Heart rate Oxygen saturation Oxygen saturation in Arterial blood by Pulse oximetry Pain severity - 0-10 verbal numeric rating [Score] - Reported Systolic blood pressure Diastolic blood pressure Provider Name and Address Organization Details Last Updated DateTime 5 165.1 cm 88 /min 98 % 98 % 8 140 mm[Hg] 93 mm[Hg] Kristyn Ibrahimtegan [place] - [facility] 5 11:07:13 Social History Question Answer Notes LastModified by Organizat ion Details LastModified Time Tobacco Smoking Status Former Smoker Stephanie Vasquez [place] - [facility] 01/30/2023 09:05:18 What Is Your Level Of Alcohol Consumption? Occasional [email or web address] Information not available 01/30/2023 Are You Blind Or Do You Have Difficulty Seeing? No Information not available 01/30/2023 In The 14 Days Before Symptom Onset, Have You Had Close Contact With A Laboratory-confir med COVID-19 While That Case Was Ill? No [email or web address] Information not available 01/30/2023 In The 14 Days Before Symptom Onset, Have You Had Close Contact With A Person Who Is Under Investigation For COVID-19 While That Person Was Ill? No Information not available 01/30/2023 Have You Been To An Area Known To Be High Risk For COVID-19? No [email or web address] Information not available 01/30/2023 Are You Currently Employed? Yes [email or web address] Information not available 01/30/2023 Are You Deaf Or Do You Have Serious Difficulty Hearing? No [email or web address] Information not available 01/30/2023 What Is The Highest Grade Or Level Of School You Have Completed Or The Highest Degree You Have Received? BS68675-1 [email or web address] Information not available 01/30/2023 What Is Your Occupation? [email or web address] Information not available 01/30/2023 How Many Days Of Moderate To Strenuous Exercise, Like A Brisk Walk, Did You Do In The Last 7 Days? 4 [email or web address] Information not available 01/30/2023 On Those Days That You Engage In Moderate To Strenuous Exercise, How Many Minutes, On Average, Do You Exercise? 45 [email or web address] Information not available 01/30/2023 What Was The Date Of Your Most Recent Tobacco Screening? 01/30/2023 [email or web address] Information not available 01/30/2023 What Is Your Relationship Status? [email or web address] Information not available 01/30/2023 Do You Feel Stressed (tense, Restless, Nervous, Or Anxious, Or Unable To Sleep At Night)? AB27823-8 [email or web address] Information not available 01/30/2023 Do You Use Any Illicit Or Recreational Drugs? No [email or web address] Information not available 01/30/2023 How Many Years Have You Smoked Tobacco? 20 Information not available 01/30/2023 Do You Or Have You Ever Used Any Other Forms Of Tobacco Or Nicotine? No [email or web address] Information not available 01/30/2023 Sex: Female Functional Status Question Answer Note LastModified by Organization D etails LastModified Time Do you have difficulty walking or climbing stairs? Yes [email or web address] Information not available 01/30/2023 Do you have difficulty doing errands alone? No [email or web address] Information not available 01/30/2023 Do you have difficulty dressing or bathing? No [email or web address] Information not available 01/30/2023 Mental Status Question Answer Note LastModified by Organizat ion Details LastModified Time Do you have difficulty concentrating, remembering or making decisions? Yes ADHD on ritalin [email or web address] Information not available 01/30/2023 Family History Relationship Description Onset Age of this Age Resolved Age Notes LastModified by Organization Details LastModified Time Father No current problems or disability 50 85 cardia c, high trigly ceride s, spine pain [email or web address] Not available 01/30/2023 09:03:17 Mother No current problems or disability 67 afib, osteo arthri tis, htn [email or web address] Not available 01/30/2023 09:03:53 Medical History Condition Response Coronary Artery Disease N Gout N Neuropathy/Neuralgia N Kidney Stones N Hyperthyroidism N Hypothyroidism N Depression N COPD N Hepatitis C N Migrane N Diabetes N Anxiety Disorder N Arthritis Y Seizures/Epilepsy N Hyperlipidemia Y Cancer N Stroke N Asthma Y HIV/AIDS N Headache N Bipolar Disorder N GERD/Reflux Y High Cholesterol N Liver Disease N Pulmonary Embolism N Fibromyalgia N Irritable Bowel Syndrome N Hypertension Y Osteoporosis N Kidney Disease N Gynecological HistoryNo gynecological history recorded. Obstetrics History GPAL:G 0 P 0 0 0 0 Immunizations Vaccine Type Date Status Note Provider Nam e and Address Organization Details Recorded Time COVID-19, mRNA, LNP-S, PF, 30 mcg/0.3 mL dose, jose-sucrose 2 completed Stephanie porter [facility] 01/30/2023 09:13:39 Respiratory syncytial virus (RSV) vaccine, unspecified 3 completed Marlena porter [facility] 07/21/2023 10:46:08 pneumococcal polysaccharide PPV23 3 completed Marlena porter [facility] 07/21/2023 10:46:34 influenza, unspecified formulation 3 completed Marlena porter [facility] 07/21/2023 10:47:11 Past Encounters Encounter ID Performer Location Encounter Start Date Encounter Closed Date Diagnosis/Indication Diagnosis SNOMED-CT Code Diagnosis ICD10 Code Diagnosis Note [id number] Geovani Sweeney MD PAIN OFFICE [address] [place] [address] 01/30/2023 08:45:16 01/30/2023 09:53:36 Lumbar radiculopathy 344090145 M54.16 Degenerati on of lumbar intervertebral disc 93537631 M51.36 [id number] Geovani Sweeney MD PAIN OFFICE [address] [facility] [place] [address] 02/13/2023 09:23:06 02/13/2023 13:41:28 Lumbar radiculopathy 005987659 M54.16 Degenerati on of lumbar intervertebral disc 36333059 M51.36 [id number] Geovani Sweeney MD PAIN OFFICE [address] [facility] [place] [address] 07/21/2023 10:30:27 07/21/2023 14:39:24 Lumbar radiculopathy 863886574 M54.16 Degenerati on of lumbar intervertebral disc 67332133 M51.36 [id number] Geovani Sweeney MD PAIN OFFICE [address] [facility] [place] [address] 09/03/2023 13:53:54 09/03/2023 14:33:37 Lumbar radiculopathy 870170481 M54.16 Degenerati on of lumbar intervertebral disc 74357536 M51.36 [id number] Geovani Sweeney MD [facility] [address] [place] [address] 04/22/2024 14:57:19 04/23/2024 10:56:24 Lumbar radiculopathy 744317427 M54.16 Degenerati on of lumbar intervertebral disc 18304449 M51.362 [id number] Geovani Sweeney MD PAIN OFFICE [address] [place] [address] 07/28/2024 11:01:07 07/28/2024 15:49:28 Lumbar radiculopathy 822529642 M54.16 Degenerati on of lumbar intervertebral disc 99436608 M51.362 Health Concerns Section Related Observation LastModified by Organization Detai ls LastModified Time None Recorded Concern Status LastModified by Organization Details LastModified Time None Recorded Advance Directives Directive None Recorded Payers Encounter Date Sequence Insurance Name Policy Number Policy Rogers Covered Member ID Rogesr Member ID Guarantor Name 02/13/2023 1 [place] [employer] Stephanie Albert [id number] Stephanie Roosevelt 02/13/2023 2 UNICARE - GIC INDEMNITY PLAN (MEDICARE SUPPLEMENT) [id number] 2 Stephanie Albert [id number] Stephanie Fountainon 07/21/2023 1 [place] [employer] Stephanie Albert [id number] Stephanie Roosevelt 07/21/2023 2 [employer]IC[employer] - [employer] INDEMNITY PLAN (MEDICARE SUPPLEMENT) [id number] Stephanie Roosevelt [id number] Stephanie Roosevelt 09/03/2023 1 [place] [employer] Stephanie Albert [id number] Stephanie Roosevelt 09/03/2023 2 [employer] - [employer]IC INDEMNITY PLAN (MEDICARE SUPPLEMENT) [id number] Stephanie Roosevelt [id number] Stephanie Roosevelt 04/22/2024 1 [place] [employer] Stephanie Albert [id number] Stephanie Albert 04/22/2024 2 [employer] - [employer] INDEMNITY PLAN (MEDICARE SUPPLEMENT) [id number] 2 Stephanie Albert [id number] Stephanie Albert 07/28/2024 1 [place] [employer] Stephanie Albert [id number] Stephanie Albert 07/28/2024 2 [employer]IC[employer] - [employer]IC INDEMNITY PLAN (MEDICARE SUPPLEMENT) [id number] 2 Stephanie Albert [id number] Stephanie Albert Notes Date Note Type Note Provider Name and Address Organization Details Recorded Time 02/13/2023 text/html She is here for a trial of lumbar epidural steroid injection under fluoroscopic guidance. Geovani [facility] [address] [facility] [address], [place], [address], [place] [facility] 02/13/2023 13:52:16 07/21/2023 text/html She is here for a follow up after a lumbar epidural steroid injection under fluoroscopic guidance on 02/13/2023. She reports some pain benefit. She has been doing post acute care nurse with Dr. Khan. She has been having [...] history of bladder or bowel incontinence. Geovani Sweeney MD [address] [facility] , [address], [place], [address], [place] [facility] 07/21/2023 16:12:51 09/03/2023 text/html She is here for a lumbar epidural steroid injection under fluoroscopic guidance. Geovani Sweeney MD [address] [facility] , [address], [place], [address], [place] [facility] 09/03/2023 14:35:16 04/22/2024 text/html She is here for a lumbar epidural steroid injection under fluoroscopic guidance.She states she has pain in left groin region. S/P left total hip replacement 5 years ago. Geovani Sweeney MD [address] [facility] , [address], [place], [address], [facility] 04/23/2024 11:08:50 07/28/2024 text/html She is here for a lumbar epidural steroid injection under fluoroscopic guidance. Geovani Sweeney MD [address] [facility] , [address], [place], [address], [facility] - [facility] 07/28/2024 15:55:22 OBGyn Episode No OBEpisode recorded.
--- OUTSIDE RECORDS SUMMARY | 2024-08-19 15:22 | XMS_ITS | Clinical Summary ---
Author Organization [facility] Address [address] [place] [address] Care Team Providers Care Banquet Food Server Name Role Phone Timothy Rios Primary Care [...] Smear Discontinued Zoster (Zostavax) Discontinued Care Teams Banquet Food Server Relationship Specialty Start Date End Date Timothy Rios PCP - General 12/09/22
--- OUTSIDE RECORDS SUMMARY | 2024-08-19 15:22 | XMS_ITS | Clinical Summary ---
Author Organization [facility] Address [address] [place] [address] Care Team Providers Care Sap Bi Architect Name Role Phone Paige Zafar Primary Care Provider + [phone] Allergies No known active allergies Medications Medication [...] age to complete this topic Care Teams Sap Bi Architect Relationship Specialty Start Date End Date Paige Zafar [place] [address] [address] PCP - General Physician Registered Radiation Therapist 12/17/16
--- OUTSIDE RECORDS SUMMARY | 2024-08-19 15:23 | XMS_ITS | Data Portability ---
Author Organization [facility], Main Office Address [address] [facility] [address] [place] [id number] Care Team Providers Care Escrow Clerk Name Role Phone [facility] OTHER EMIR ZAFAR Primary Care Provider HELENA MAK Warp Placer MARIJA GARCIA Police Or Patrol Park Officer [phone] KYLE SANTOS Physical Therapist VENKATA COLEMAN Neuropsychiatrist CAITIE GLASS Call Center Dispatcher TIM TUBBS Orthopedic Surgeon [facility] Tree Marker BRIGID BOONE Phys. [facility] Phys. Med. & Rehab [phone] JEANNA GOLDEN Psychiatrist Assessment Encounter Date Assessment Date Assessment LastModified by Organization Details LastModified Time 10/07/2021 10/07/2021 This service was provided using telemedicine. Patient consented to telephone visit [facility] Provider was located in the office. No other persons participated in the telemedicine visit except for the patient unless otherwise indicated here. {{}} Total time of visit was 18 minutes. chau Not available 10/07/2021 14:24:43 02/01/2023 02/01/2023 This service was provided using telemedicine. Patient consented to video & audio visit [facility]. Provider was located in the office. No other persons participated in the telemedicine visit except for the patient unless otherwise indicated here. {{}} Total time of visit was 15 minutes. [email or web address] Not available 02/01/2023 11:17:43 Plan of Treatment Reminders Order Date Submit Date Provider Last Modified By Organization Details Last Modified Time Details Appointments None recor ded. Lab CMP, serum or plasm a 2023 024 [email or web address] [facility], [address], [address], [place], [address], 5 10:16:23 lipid panel , serum 2023 024 [email or web address] [facility], [address], [address], [place], [address], 5 10:16:23 nonin vasiv e color ectal cance r DNA + occul t blood scree kevin, QL, stool 2023 024 [facility] (Cologuard Orders Only), [address], [address], [place], [address], 4 05:50:58 CMP, serum or plasm a 2022 023 [email or web address] [facility], [address], [address], [place], [address], 3 14:10:15 lipid panel , serum 2022 023 [email or web address] [facility], [address], [address], [place], [address], 3 14:10:15 TSH, serum or plasm a 2022 023 [email or web address] [facility], [address], [address], [place], [address], 3 14:10:15 CBC w/ auto diff 2022 023 RAMIRO [facility], [address], [address], [place], [address], 4 06:08:12 CBC w/ auto diff 2020 021 RAMIRO [facility], [address], [address], [place], [address], 1 10:07:56 lipid panel , serum 2020 021 [email or web address] [facility], [address], [address], [place], [address], 1 12:33:11 CMP, serum or plasm a 2020 021 [email or web address] [facility], [address], [address], [place], [address], 1 12:33:11 hepat itis C virus Ab, serum 2020 021 RAMIRO [facility], [address], [address], [place], [address], 1 10:07:57 Referral gastr rex aguilera ist refer ral - Needs colon cance r antoni brown, mabel patie nt, last done [address] Gastroenterology Scheduling Department, [address] [facility], [address], [place], [address], 3 10:06:37 Procedures None recor ded. Surgeries None recor ded. Imaging MAMMO , antoni brown, bilat eral - Perfo rm Diagn ostic Mammo gram and Breas t Ultra sound if neede d / Perfo rm Ultra sound Guide d Aspir ation and/o r Breas t Biops y if warra nted [address] [facility] Imaging Orders, [address], [address], [place], [address], 4 16:17:02 MAMMO , scree kevin, bilat eral - Perfo rm Diagn ostic Mammo gram and Breas t Ultra sound if neede d / Perfo rm Ultra sound Guide d Aspir ation and/o r Breas t Biops y if warra nted 2022 023 ATHENAFAX [facility] Imaging Orders, [address], [address], [place], [address], 3 10:10:31 MAMMO , scree kevin, bilat eral - Perfo rm Diagn ostic Mammo gram and Breas t Ultra sound if neede d / Perfo rm Ultra sound Guide d Aspir ation and/o r Breas t Biops y if warra nted 2020 021 [facility] Radiology, [address] [facility], [place], [address], 1 10:25:54 Medication Orders loraz epam 0.5 mg table t 2023 024 [facility]/Pharmacy #0517, [address], [place], [address], 4 15:57:58 melox icam 15 mg table t 2023 024 [facility]/Pharmacy #0501, [address], [place], [address], 4 16:08:28 lisin opril 10 mg table t 2023 024 [facility]/Pharmacy #0595, [address], [place], [address], 4 15:57:56 omepr azole 20 mg capsu le,de layed relea se 2023 024 [facility]/Pharmacy #0514, [address], [place], [address], 4 16:02:51 valac yclov ir 1 gram table t 2023 024 [facility] [address], [place], [address], 4 15:57:59 atorv astat in 40 mg table t 2023 024 [facility] #0517, [address], [place], [address], 4 16:10:00 albut antoinette sulfa te HFA 90 mcg/a ctuat ion aeros ol inhal er 2023 024 [facility]/Pharmacy #0517, [address], [place], [address], 4 15:57:59 Paxlo vid 300 mg (150 mg x 2)-10 0 mg table ts in a dose pack 2022 023 [email or web address] os [facility]/Pharmacy #0517, [address], [place], [address], 4 15:32:51 Lauryn janet Perle s 100 mg capsu le 2022 023 [email or web address] os [facility]/Pharmacy #0517, [address], [place], [address], 4 15:32:19 panto prazo le 40 mg table t,del ayed relea se 2022 023 hiren e [facility]/Pharmacy #0517, [address], [place], [address], 3 10:50:35 atorv astat in 40 mg table t 2022 023 hiren e [facility]/Pharmacy #0517, [address], [place], [address], 3 10:47:58 gabap entin 100 mg capsu le 2022 023 vasiliybrooks [facility]/Pharmacy #0517, [address], [place], [address], 3 10:48:45 albut antoinette sulfa te HFA 90 mcg/a ctuat ion aeros ol inhal er 2022 023 [facility]/Pharmacy #0517, [address], [place], [address], 3 09:46:20 hydro chlor othia zide 25 mg table t 2022 023 [facility], [address], [place], [address], 3 10:48:56 lisin opril 10 mg table t 2022 023 jthabet [facility]/Pharmacy #0517, [address], [place], [address], 4 15:56:09 Paxlo vid 300 mg (150 mg x 2)-10 0 mg table ts in a dose pack 2021 022 bsvaibhav os [facility]/Pharmacy #0517, [address], [place], [address], 4 15:32:51 ProAi r HFA 90 mcg/a ctuat ion aeros ol inhal er 2020 021 [facility]/Pharmacy #0517, [address], [place], [address], 1 10:07:47 gabap entin 300 mg capsu le 2020 021 [facility], [address], [place], [address], 10:48:50 Patient TargetsNo targets recorded. Patient Instructions Encounter Date Encounter Id Patient Instructions Last Modified By Organization Details Last Modified Time 08/31/2020 [id number] call or return for any concerns. [email or web address] Not available 08/10/2020 10:46:25 10/07/2021 [id number] high cholesterol: care instructions [email or web address] Not available 10/07/2021 14:31:00 07/18/2022 [id number] learning about colon cancer jthabet Not available 07/18/2022 09:47:49 call or return for worsening or concerns [email or web address] Not available 07/18/2022 09:48:35 02/01/2023 [id number] 10 things to do when you have covid-19 felicita Not available 02/01/2023 11:16:47 10/23/2023 [id number] depression treatment: care instructions jthabet Not available [...] Not available 09/24/2023 14:06:53 Reason for Referral Police Or Patrol Park Officer Referral for Screening for malignant neoplasm of colon Needs colon cancer screening, new patient, last done 2012 Referring Physician: Emir Zafar, Family Medicine, Encounter Date: 07/18/2022 Results Created Date Observation Date Name Description Value Unit Range Abnormal Flag Note LastModifiedBy Organization Detail LastModifiedTime 05/02/20 21 05/02/2021 COVID -19 (NOVE L CORON AVIRU S) PCR covid-19 PCR specimen source NASAL Not Available [facility] (Centralized Electronic Ordering - All Locations) Patient Can Go To The Location Of Their Choice, [address] 05/03/2021 16:22:49 05/02/20 21 05/03/2021 COVID -19 (NOVE L CORON AVIRU S) PCR covid-19 PCR result (neg) normal NEGAT DERRICK 2019- novel Coron aviru s (2018nCoV ) not detec ginny by real- time RT-PC R. Note: If clini griselda suspi cion for COVID -19 is high, antonio nue to maint ain preca ution s and consi reed repea t testi ng. Resul t repor ginny to the [facility]. To preve nt error s in diagn [...] perfo rmed by real time PCR utili [facility] BRANDEN 6800 SARS- CoV-2 test. Not Available [facility] (Centralized Electronic Ordering - All Locations) Patient Can Go To The Location Of Their Choice, [address] 05/03/2021 16:22:49 07/25/19 24 07/26/2023 CBC WITH DIFFE RENTI AL/PL ATELE T WBC 7.8 x10e3 /uL 3.4-10 .8 Not Available [facility] ([facility]) [address] [place], [address], 07/26/2023 06:08:12 07/25/19 24 07/26/2023 CBC WITH DIFFE RENTI AL/PL ATELE T RBC 4.24 x10e6 /uL 3.77-5 .28 Not Available [facility] ([facility]) [address] [facility], [place], [address], 07/26/2023 06:08:12 07/25/19 24 07/26/2023 CBC WITH DIFFE RENTI AL/PL ATELE T hemoglobin 12.4 g/dL 11.1-1 5.9 Not Available [facility] ([facility]) [address] [facility], [place], [address], 07/26/2023 06:08:12 07/25/19 24 07/26/2023 CBC WITH DIFFE RENTI AL/PL ATELE T hematocrit 36.9 % 34.0-4 6.6 Not Available [facility] ([facility]) [address] [place], [address], 07/26/2023 06:08:12 07/25/19 24 07/26/2023 CBC WITH DIFFE RENTI AL/PL ATELE T MCV 87 fL 79-97 Not Available [facility] ([facility]) [address] [place], [address], 07/26/2023 06:08:12 07/25/19 24 07/26/2023 CBC WITH DIFFE RENTI AL/PL ATELE T MCH 29.2 pg 26.6-3 3.0 Not Available [facility] ([facility]) [address] [place], [address], 07/26/2023 06:08:12 07/25/19 24 07/26/2023 CBC WITH DIFFE RENTI AL/PL ATELE T MCHC 33.6 g/dL 31.5-3 5.7 Not Available [facility] ([facility]) [address] [place], [address], 07/26/2023 06:08:12 07/25/19 24 07/26/2023 CBC WITH DIFFE RENTI AL/PL ATELE T RDW 12.4 % 11.7-1 5.4 Not Available [facility] ([facility]) [address] [place], [address], 07/26/2023 06:08:12 07/25/19 24 07/26/2023 CBC WITH DIFFE RENTI AL/PL ATELE T platelets 368 x10e3 /uL 150-45 0 Not Available [facility] ([facility]) [address] [facility], [place], [address], 07/26/2023 06:08:12 07/25/19 24 07/26/2023 CBC WITH DIFFE RENTI AL/PL ATELE T neutrophils 81 % not estab. Not Available [facility] ([facility]) [address] [facility], [place], [address], 07/26/2023 06:08:12 07/25/19 24 07/26/2023 CBC WITH DIFFE RENTI AL/PL ATELE T lymphs 14 % not estab. Not Available [facility] ([facility]) [address] [facility], [place], [address], 07/26/2023 06:08:12 07/25/19 24 07/26/2023 CBC WITH DIFFE RENTI AL/PL ATELE T monocytes 4 % not estab. Not Available [facility] ([facility]) [address] [facility], [place], [address], 07/26/2023 06:08:12 07/25/19 24 07/26/2023 CBC WITH DIFFE RENTI AL/PL ATELE T eos 1 % not estab. Not Available [facility] ([facility]) [address] [facility], [place], [address], 07/26/2023 06:08:12 07/25/19 24 07/26/2023 CBC WITH DIFFE RENTI AL/PL ATELE T basos 0 % not estab. Not Available [facility] ([facility]) [address] [facility], [place], [address], 07/26/2023 06:08:12 07/25/19 24 07/26/2023 CBC WITH DIFFE RENTI AL/PL ATELE T immature cells DRAGGER OUT Not Available [facility] ([facility]) [address] [facility], [place], [address], 07/26/2023 06:08:12 07/25/19 24 07/26/2023 CBC WITH DIFFE RENTI AL/PL ATELE T neutrophils (absolute) 6.3 x10e3 /uL 1.4-7. 0 Not Available [facility] ([facility]) [address] [facility], [place], [address], 07/26/2023 06:08:12 07/25/19 24 07/26/2023 CBC WITH DIFFE RENTI AL/PL ATELE T lymphs (absolute) 1.1 x10e3 /uL 0.7-3. 1 Not Available [facility] ([facility]) [address] [place], [address], 07/26/2023 06:08:12 07/25/19 24 07/26/2023 CBC WITH DIFFE RENTI AL/PL ATELE T monocytes(ab solute) 0.3 x10e3 /uL 0.1-0. 9 Not Available [facility] ([facility]) [address] [place], [address], 07/26/2023 06:08:12 07/25/19 24 07/26/2023 CBC WITH DIFFE RENTI AL/PL ATELE T eos (absolute) 0.1 x10e3 /uL 0.0-0. 4 Not Available [facility] ([facility]) [address] [place], [address], 07/26/2023 06:08:12 07/25/19 24 07/26/2023 CBC WITH DIFFE RENTI AL/PL ATELE T baso (absolute) 0.0 x10e3 /uL 0.0-0. 2 Not Available [facility] ([facility]) [address] [place], [address], 07/26/2023 06:08:12 07/25/19 24 07/26/2023 CBC WITH DIFFE RENTI AL/PL ATELE T immature granulocytes 0 % not estab. Not Available [facility] ([facility]) [address] [facility], [place], [address], 07/26/2023 06:08:12 07/25/19 24 07/26/2023 CBC WITH DIFFE RENTI AL/PL ATELE T immature grans (abs) 0.0 x10e3 /uL 0.0-0. 1 Not Available [facility] ([facility]) [address] [facility], [place], [address], 07/26/2023 06:08:12 07/25/19 24 07/26/2023 CBC WITH DIFFE RENTI AL/PL ATELE T NRBC DRAGGER OUT Not Available [facility] ([facility]) [address] [facility], [place], [address], 07/26/2023 06:08:12 07/25/19 24 07/26/2023 CBC WITH DIFFE RENTI AL/PL ATELE T hematology comments: DRAGGER OUT Not Available [facility] ([facility]) [address] [facility], [place], [address], 07/26/2023 06:08:12 07/25/19 24 07/26/2023 COMP. METAB OLIC PANEL (14) glucose 118 mg/dL 70-99 above high normal Not Available [facility] ([facility]) [address] [facility], [place], [address], 07/26/2023 06:08:13 07/25/19 24 07/26/2023 COMP. METAB OLIC PANEL (14) BUN 14 mg/dL 8-27 Not Available [facility] ([facility]) [address] [facility], [place], [address], 07/26/2023 06:08:13 07/25/19 24 07/26/2023 COMP. METAB OLIC PANEL (14) creatinine 0.66 mg/dL 0.57-1 .00 Not Available [facility] ([facility]) [address], [place], [address], 07/26/2023 06:08:13 07/25/19 24 07/26/2023 COMP. METAB OLIC PANEL (14) eGFR 97 mL/mi n/1.7 3 >59 Not Available [facility] ([facility]) [address] [place], [address], 07/26/2023 06:08:13 07/25/19 24 07/26/2023 COMP. METAB OLIC PANEL (14) BUN/creatini ne ratio 21 -28 Not Available [facility] ([facility]) [address] [place], [address], 07/26/2023 06:08:13 07/25/19 24 07/26/2023 COMP. METAB OLIC PANEL (14) sodium 140 mmol/ L 134-14 4 Not Available [facility] ([facility]) [address] [place], [address], 07/26/2023 06:08:13 07/25/19 24 07/26/2023 COMP. METAB OLIC PANEL (14) potassium 4.4 mmol/ L 3.5-5. 2 Not Available [facility] ([facility]) [address] [place], [address], 07/26/2023 06:08:13 07/25/19 24 07/26/2023 COMP. METAB OLIC PANEL (14) chloride 96 mmol/ L 96-106 Not Available [facility] ([place] [facility]) [address] [facility] [place], [address], 07/26/2023 06:08:13 07/25/19 24 07/26/2023 COMP. METAB OLIC PANEL (14) anion gap 17.0 mmol/ L 10.0-1 8.0 Not Available [facility] ([place] [facility]) [address] [place], [address], 07/26/2023 06:08:13 07/25/19 24 07/26/2023 COMP. METAB OLIC PANEL (14) carbon dioxide, total 27 mmol/ L 20-29 Not Available [facility] ([facility]) [address], [place], [address], 07/26/2023 06:08:13 07/25/19 24 07/26/2023 COMP. METAB OLIC PANEL (14) calcium 9.9 mg/dL 8.7-10 .3 Not Available [facility] ([facility]) [address], [place], [address], 07/26/2023 06:08:13 07/25/19 24 07/26/2023 COMP. METAB OLIC PANEL (14) protein, total 6.9 g/dL 6.0-8. 5 Not Available [facility] ([facility]) [address], [place], [address], 07/26/2023 06:08:13 07/25/19 24 07/26/2023 COMP. METAB OLIC PANEL (14) albumin 4.6 g/dL 3.9-4. 9 Not Available [facility] ([facility]) [address] [facility], [place], [address], 07/26/2023 06:08:13 07/25/19 24 07/26/2023 COMP. METAB OLIC PANEL (14) globulin, total 2.3 g/dL 1.5-4. 5 Not Available [facility] ([facility]) [address] [place], [address], 07/26/2023 06:08:13 07/25/19 24 07/26/2023 COMP. METAB OLIC PANEL (14) A/G ratio 2.0 1.2-2. 2 Not Available [facility] ([facility]) [address] [facility] [place], [address], 07/26/2023 06:08:13 07/25/19 24 07/26/2023 COMP. METAB OLIC PANEL (14) bilirubin, total 0.6 mg/dL 0.0-1. 2 Not Available [facility] ([facility]) [address] [facility] [place], [address], 07/26/2023 06:08:13 07/25/19 24 07/26/2023 COMP. METAB OLIC PANEL (14) alkaline phosphatase 131 IU/L 44-121 above high normal Not Available [facility] ([facility]) [address] [facility] [place], [address], 07/26/2023 06:08:13 07/25/19 24 07/26/2023 COMP. METAB OLIC PANEL (14) AST (SGOT) 34 IU/L 0-40 Not Available [facility] ([facility]) [address] [facility] [place], [address], 07/26/2023 06:08:13 07/25/19 24 07/26/2023 COMP. METAB OLIC PANEL (14) ALT (SGPT) 45 IU/L 0-32 above high normal Not Available [facility] ([facility]) [address] [place], [address], 07/26/2023 06:08:13 07/25/19 24 07/26/2023 LP+NO N-HDL MENDEZ STERO L cholesterol, total 180 mg/dL 100-19 9 Not Available [facility] ([facility]) [address] [place], [address], 07/26/2023 06:08:14 07/25/19 24 07/26/2023 LP+NO N-HDL MENDEZ STERO L triglyceride s 106 mg/dL 0-149 Not Available [facility] ([facility]) [address] [place], [address], 07/26/2023 06:08:14 07/25/19 24 07/26/2023 LP+NO N-HDL MENDEZ STERO L HDL cholesterol 73 mg/dL >39 Not Available [facility] ([facility]) [address] [facility], [place], [address], 07/26/2023 06:08:14 07/25/19 24 07/26/2023 LP+NO N-HDL MENDEZ STERO L VLDL cholesterol griselda 19 mg/dL 5-40 Not Available [facility] ([facility]) [address] [facility], [place], [address], 07/26/2023 06:08:14 07/25/19 24 07/26/2023 LP+NO N-HDL MENDEZ STERO L LDL chol calc ([facility]) 88 mg/dL 0-99 Not Available [facility] ([facility]) [address] [facility], [place], [address], 07/26/2023 06:08:14 07/25/19 24 07/26/2023 LP+NO N-HDL MENDEZ STERO L non-HDL cholesterol 107 mg/dL 0-129 Not Available [facility] ([facility]) [address] [facility], [place], [address], 07/26/2023 06:08:14 07/25/19 24 07/26/2023 LP+NO N-HDL MENDEZ STERO L comment: DRAGGER OUT Not Available [facility] ([facility]) [address] [facility], [place], [address], 07/26/2023 06:08:14 07/25/19 24 07/26/2023 TSH REFLE X TO T4F TSH 1.160 uIU/m L 0.450- 4.500 Not Available [facility] ([facility]) [address] [place], [address], 07/26/2023 06:08:14 11/06/19 24 11/06/2023 COLOG UARD cologuard result reportable NEGATI VE negati ve normal NEGAT DERRICK TEST RESUL T. A negat derrick Colog uard resul t indic ates a low likel ihood that a color ectal cance r (CRC) or advan adrianna adeno ma (fidelia omato us polyp s with more advan adrianna pre-m align ant featu res) is prese nt. The [facility] e that a perso n with a [...] of ,00 0 indiv idual s at [place] risk for color ectal cance r who were scree kt with both Colog uard and colon oscop y. ([facility] á[facility]el Sher. et al, N Engl J Med 2014; 370(1 4):12 86-12 97) The ranjan l value (refe rence range ) for this assay is negat derrick. COLOG UARD RE-SC REENI NG RECOM MENDA TION: Perio dic color ectal cance r scree kevin is an impor tant part of preve ntive healt hcare for asymp tomat ic indiv idual s at [place] ge risk for color ectal cance r. [...] Task Force on Color ectal Cance r Screjuancarlos brown , Am Anuel aguilera y 2017; 112:1 016-1 030. TEST DESCR IPTIO N: Algona site algor ithmi c fatmata sis of stool DNA-b baylee zuleta with hemog lobin immun oassa y. Quant itati ve value s of indiv idual bioma rkers are not repor table and are not assoc iated with indiv idual bioma rker resul t refer ence range s. Colog uard is inten ded for color ectal cance r scree kevin of adult s of eithe r sex, 45 years or older , who are at [facility] for color ectal cance r (CRC) . Colog uard has been appro marlo for use by the [place]. FDA. The perfo rmanc e of Colog uard was estab lishe d in a cross secti onal study of [facility] adult s aged 50-84 . Colog uard perfo rmanc e in patie nts ages 45 to 49 years was estim ated by sub-g roup fatmata sis of near- age group s. Colon oscop ies perfo rmed for a posit derrick resul t may find as the most clini arcadio signi ficmychal t lesio n: color ectal cance r [...] of 10,00 0 indiv idual s at [facility] risk for color ectal cance r [...] ution s can be found at www.c ologu sg.c om. Not Available [facility] (Cologuard Orders Only) [address], [place], [address], 11/12/2023 05:50:58 09/29/19 21 09/28/2020 XR, foot No observ ation record ed. [facility] Imaging Dept [address] [place] [address], [address], 10/03/2020 15:51:04 12/11/19 22 12/09/2021 imagi ng/di agnos tic resul t No observ ation record ed. [facility] Diagnosit Imaging Dept [address] [place] [address], [address], 12/11/2021 20:30:10 02/25/20 22 02/22/2022 MRI, shoul reed, w/o contr ast No observ ation record ed. [facility] Dept [address] [place] [address], [address], 02/25/2022 14:55:27 06/10/19 23 06/10/2022 XR, knee, 1 or 2 view No observ ation record ed. [email or web address] [facility]osit Imaging Dept [address] [place], [address], 06/11/2022 08:59:31 08/08/19 24 08/08/2023 MRI, lumba r spine , w/o contr ast No observ ation [facility]. [facility] [address] [place], [address], 08/08/2023 09:52:22 03/18/20 24 03/11/2024 CT, abdom en, w/wo contr ast No observ ation record ed. [email or web address] [facility] [address] [place], [address], 03/19/2024 10:00:42 Result Notes None recorded. Problems Name Problem SNOMED Code Status Onset Date Resolution Date Notes Provider Name and Address Organization Details Recorded Time Osteopen ia 722196216 Active 2012 Not Available [facility] 3 13:10:54 Restless legs 95834373 Active 2016 Not Available [facility] 3 13:10:54 [facility] hyperten emmy 54354574 Active 2016 Not Available [facility] 3 13:10:54 Hyperlip idemia 82948764 Active 2016 Not Available [facility] 3 13:10:54 Gastroes ophageal reflux disease without esophagi tis 433257548 Active 2016 Not Available [facility] 3 13:10:54 Asthma 057344828 Completed 201603/14/2017 Emir Zafar, [facility] [address] [facility] [address], [facility] [place], [address] , [facility] 2 14:03:10 Osteoart hritis of hip 951499367 Active 2016 end stage- Left hip Not Available [facility] 3 13:10:54 Spinal stenosis in cervical region 81594669 Active 2016 [facility] Available [facility] 13:10:54 History of total hysterec maureen 032674256 Active 2007 Not Available [facility] 3 13:10:54 Exercise -induced asthma 44407433 Active 2017 Not Available [facility] 3 13:10:54 Ex-smoke r 6977404 Active 2017 Not Available [facility] 3 13:10:54 Attentio n deficit hyperact ivity disorder , predomin antly inattent derrick type 15976008 Active 2014 sees psychiat rist Not Available [facility] 3 13:10:54 Anxiety 43159351 Active Not Available [facility] 3 13:10:54 Major depressi ve disorder 017184716 Active Not Available [facility] 3 13:10:54 Posttrau matic stress disorder 94854917 Active Not Available [facility] 3 13:10:54 Total hysterec maureen with removal of both tubes and ovaries Active 2007 Not Available [facility] 3 13:10:54 Wilson' s esophagu s 413294509 Active 2019 Not Available [facility] 3 13:10:54 Exposure to SARS-CoV -2 Completed 08/31/2020 Removal Reason: Problem added by user [email or web address] from the COVID-19 watch flag Emir Zafar, [facility] [address] [address], [place], [address] , [facility] 1 09:56:38 COVID-19 173753101 Active 2021 Not Available [facility] 3 13:10:54 Asthma 892045721 Active 2021 Not Available [facility] 3 13:10:54 Fatigue 81532615 Active 2021 Not Available [facility] 3 13:10:54 Moderate recurren t major depressi on 66348034 Active 2022 Not Available [facility] 3 13:10:54 Insomnia 843359190 Active 2022 Not Available [facility] 3 13:10:54 Gastroes ophageal reflux disease 643452349 Active 2022 Not Available [facility] 3 13:10:54 Attentio n deficit hyperact ivity disorder , combined type 82398388 Active 2022 Not Available [facility] 3 13:10:54 Low back pain 941913337 Active 2022 Not Available [facility] 3 13:10:54 Herpes labialis 1426157 Active 2022 Emir Zafar, [facility] [address] [facility] [address], [place], [address] , [facility] 3 13:40:27 Generali zed anxiety disorder 50102274 Active 2023 Emir Zafar [facility] [address] [address], [place], [address] , [facility] 4 15:56:41 Pain of left hip joint 08099470190 9100 Active 2023 Emir Zafar, [facility] [address] [address], [place], [address] , [facility] 4 16:07:27 Problem Notes None recorded. Procedures Surgical History Date Name Laterality Status Provider Name and Address Organization Details Recorded Time 08/04/19 24 injection into lumbar epidural space completed Viry thacker MA [facility] 10/23/2023 15:35:13 08/04/19 24 injection of cortisone completed Viry thacker MA [facility] 10/23/2023 15:35:27 02/03/20 23 injection into lumbar epidural space completed Viry thacker MA [facility] 10/23/2023 15:35:06 06/10/19 23 Total knee arthroplasty completed Didi Mccormick [facility] 06/11/2022 08:39:13 04/11/20 22 arthroscopy of shoulder with excision of distal clavicle completed iDdi Mccormick [facility] 04/19/2022 14:28:02 04/11/20 22 acromioplasty of shoulder completed Didi Mccormick [facility] 04/19/2022 14:28:21 04/09/20 22 Arthroscopic Surgery completed Chelsi Gaines MA [facility] 07/18/2022 09:22:34 02/03/20 20 endoscopy completed PARVEEN Bruno [address] [facility] [address] [facility]note 3], [place], [address], [facility] 08/31/2020 10:04:13 01/15/20 19 Arthroscopic Surgery completed Solange Money [facility] 01/19/2019 09:34:21 07/18/19 19 Most Recent Mammogram completed [facility] 07/23/2018 10:30:46 07/18/19 [address] [facility] 07/23/2018 10:30:38 02/03/20 18 injection of trigger points completed Anne-Marie Cheney [facility] 02/03/2018 14:31:58 07/11/19 18 Endoscopic us exam esoph completed Zaria Kessler [facility] 08/07/2017 12:03:24 11/02/19 17 Joint Injection completed Celio Casanova MD [address] [facility][note 3], [place], [address], [facility] 11/01/2016 14:17:00 11/02/19 17 Corticosteroid Injection completed Celio Casanova MD [address] [facility][note 3], [place], [address], [facility] 11/01/2016 14:16:35 09/25/19 16 Arthroscopic Surgery completed Jess Santillan MA [facility] 08/06/2016 14:51:37 11/19/19 13 Date of Last Colonoscopy completed Viry thacker MA [facility] 05/14/2017 13:51:55 11/19/19 13 Colonoscopy completed Zaria Kessler [facility] 08/07/2017 12:05:23 10/29/19 13 Most Recent Bone Density completed Viry thacker MA [facility] 01/22/2017 11:46:38 10/29/19 13 Dxa bone density eda vrt fx completed Viry thacker MA [facility] 01/22/2017 11:46:28 05/05/19 08 Total hysterectomy completed Viry thacker MA [facility] 05/14/2017 13:52:34 Arthroscopic Surgery completed Jess Santillan MA [facility] 08/06/2016 14:52:00 Imaging Results Imaging Date Name Status LastModified by Parul ghosh Details LastModified Time 09/28/2020 XR, foot completed [facility] [address] [place] [address], [id number], 10/03/2020 15:51:04 12/09/2021 imaging/diagn ostic result completed [facility] [address] [place] [address], [address], 12/11/2021 20:30:10 02/22/2022 MRI, shoulder, w/o contrast completed [facility] [address] [place] [address], [address], 02/25/2022 14:55:27 06/10/2022 XR, knee, 1 or 2 view completed [email or web address] [facility] [address] [place] [address], [address], 06/11/2022 08:59:31 08/08/2023 [facility], lumbar spine, w[facility] [address] [place] [address], [address], 08/08/2023 09:52:22 03/11/2024 CT, abdomen, w/wo contrast completed [email or web address] [facility] [address] [place], [address], 03/19/2024 10:00:42 Procedure Notes None recorded. Medical Equipment None Reported. Allergies Allergen ID Allergen Name Allergen Category Reaction Reaction Severity Criticality Documentation Date Start Date Code Code System Note Provider Name and Address Organization Details Recorded Time 97368 No known allergy (situatio n) Not available Not available Not available Not available 03/17/2020 78123 6003 SNOMED PAZ Orozco [place] - [facility] 15:24:06 No known drug allergies [...] methylphe nidate 20 mg tablet TAKE 2 TABLETS BY [...] every day by oral route. 06/03 completed [facility] Not Available Not Available Not Available estradiol [...] Not Available No t Available methocarb xin 750 mg tablet TAKE 1 [...] 1 CAPSULE PER DAY PER INSURANC E* active Not Available Not Available No t Available diclofena c sodium 75 mg tablet,de layed [...] Not Available Not Available No t Available gabapenti n 100 mg capsule Take 2 [...] completed Not Available Not Available Not Available methylpre dnisolone 4 mg tablets in a dose pack TAKE 6 TABLETS ON DAY 1 DIRECTED ON PACKAGE AND DECREASE BY 1 TAB EACH DAY FOR A TOTAL OF 6 DAYS active Not Available Not Available No t Available albuterol sulfate HFA 90 mcg/actua tion [...] Not Available oxycodone 5 mg tablet TAKE 1/2 TABLET BY MOUTH EVERY 6 HOURS NEEDED FOR PAIN active Not Available Not Available No t Available Concerta 27 mg tablet,ex tended release [...] 1 163.2 cm 98.78 [degF] 30.7 kg/m2 23542.6 8 g 80 /min 97 % 97 % 123 mm[Hg] 79 mm[Hg] Elaine Connell [facility] 1 09:50:31 Date Recorded Body height Body mass index (BMI) Body weight Heart rate Oxygen saturation Oxygen saturation in Arterial blood by Pulse oximetry Body temperature Systolic blood pressure Diastolic blood pressure Provider Name and Address Organization Details Last Updated DateTime 3 163.2 cm 28.8 kg/m2 19158.2 1 g 85 /min 95 % 95 % 97.6 [degF] 147 mm[Hg] 79 mm[Hg] Chelsi Gaines [facility] 3 09:17:38 Date Recorded Body height Provider Name an d Address Organization Details Last Updated DateTime 02/01/2023 163.2 cm Gloria Haro [facility] 02/01/2023 10:47:14 Date Recorded Body height Body mass index (BMI) Body weight Heart rate Oxygen saturation Oxygen saturation in Arterial blood by Pulse oximetry Body temperature Systolic blood pressure Diastolic blood pressure Provider Name and Address Organization Details Last Updated DateTime 4 163.2 cm 27.6 kg/m2 39830.9 6 g 80 /min 98 % 98 % 97.7 [degF] 132 mm[Hg] 80 mm[Hg] Viry flores MA [facility] 4 15:31:45 Social History Question Answer Notes LastModified by Organizat ion Details LastModified Time Tobacco Smoking Status Former Smoker PAZ Butler [facility] 08/06/2016 14:50:40 Do You Have An Advance [...] available 10/07/2021 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 16+yearssince lastcigardeja Information not available 10/23/2023 Do You Take [...] you able to care for yourself? Yes sisterEddy Kumar Information not available 09/17/2017 What is your [...] virus, quadrivalent, preservative 6 completed Sheyla porter [facility] 03/03/2023 08:53:10 Tdap 3 completed Sheyla Navarro null, [facility] 03/03/2023 08:53:10 Tdap 3 completed Sheyla Navarro null, [facility] 03/03/2023 08:53:10 pneumococcal polysaccharide PPV23 7 completed Sheyla Navarro null, [facility] 03/03/2023 08:53:10 Influenza, split virus, quadrivalent, PF 9 completed Sheyla Navarro null, [facility] 03/03/2023 08:53:10 zoster recombinant 9 completed Sheyla Navarro null, [facility] 03/03/2023 08:53:10 COVID-19, mRNA, LNP-S, PF, 30 mcg/0.3 mL dose 1 completed Sheyla Navarro null, [facility] 03/03/2023 08:53:10 COVID-19, mRNA, LNP-S, PF, 30 mcg/0.3 mL dose 1 completed Sheyla Navarro null, [facility] 03/03/2023 08:53:10 zoster recombinant 0 completed Sheyla Navarro null, [facility] 03/03/2023 08:53:10 COVID-19, mRNA, LNP-S, PF, 30 mcg/0.3 mL dose 1 completed Sheyla Navarro null, [facility] 03/03/2023 08:53:10 Influenza, split virus, quadrivalent, PF 1 completed Sheyla Navarro null, [facility] 03/03/2023 08:53:10 Influenza, split virus, quadrivalent, PF 8 completed Sheyla Navarro null, [facility] 03/03/2023 08:53:10 Influenza, split virus, quadrivalent, PF 0 completed Sheyla Navarro null, [facility] 03/03/2023 08:53:10 Pneumococcal conjugate PCV20, polysaccharide [id number] conjugate, adjuvant, PF 3 completed Sheyla Navarro null, [facility] 03/03/2023 08:53:10 Tdap 3 completed Sheyla Navarro null, [facility] 03/03/2023 08:53:10 Influenza, MDCK, quadrivalent, PF 2 completed Sheyla Navarro null, [facility] 03/03/2023 08:53:10 COVID-19, mRNA, LNP-S, bivalent, PF, 30 mcg/0.3 mL dose 2 completed Sheyla Navarro null, [facility] 03/03/2023 08:53:10 Influenza, high-dose, quadrivalent, PF 3 completed Sheyla Navarro [facility], [facility] 03/03/2023 08:53:10 RSV, recombinant, protein subunit RSVpreF, adjuvant reconstituted, 0.5 mL, PF 3 completed Viry Browning MA null, [facility] 10/23/2023 15:32:04 COVID-19, mRNA, LNP-S, PF, jose-sucrose, 30 mcg/0.3 mL 4 completed Sheyla porter, [facility] 03/24/2024 09:23:58 Influenza, high-dose, trivalent, PF 4 completed Sheyla Navarro null, [facility] 03/24/2024 09:23:58 Influenza, split virus, quadrivalent, PF 7 completed Not Available [facility] 05/22/2019 02:22:11 Past Encounters Encounter ID Performer Location Encounter Start Date Encounter Closed Date Diagnosis/Indication Diagnosis SNOMED-CT Code Diagnosis ICD10 Code Diagnosis Note [id number] Celio Casanova MD Main Office [address] [facility] [address] [facility] [place] [address] 08/06/2016 14:27:50 08/06/2016 16:01:33 Essential hypertension 41857987 I10 Well controlled on current medication s, she has eniugh HCTZ, refill provided on lisinopril . Hypercholesterolemia 136 12315 E78.00 Will check blood work, continue simvastati n as directed Restless legs 56821414 G 25.[address] Casanova, technical publications writer , I am not comfortabl e prescribin g [...] this but agrees. Hypertrophy of breast 37 2646993 N62 Has an appt for consult in September and needs a referral and letter of medical necessity. Verbalizes back and neck pain, diff finding bras etc. Major depr essive disorder 337280485 F32.[address] Coleman, continue meds as directed Anxiety 75409293 F41.[address] Coleman, continue meds as directed Adult atte ntion deficit hyperactivity disorder 906137533 F90.[address] Coleman, continue meds as directed [id number] Dario Burns MD Main Office [address] [facility] [address] [place] [place] [address] 08/13/2016 14:08:08 08/13/2016 14:33:24 Upper respiratory infection 73961502 J06.9 sx treatment, hydration, rest, tylenol/ ibuprofen as needed. CXR today, azithro as prescribed . No driving or alcohol with cough med. [id number] Celio Casanova MD Main Office [address] [facility] [address] [place] [place] [address] 11/01/2016 13:36:29 11/01/2016 14:20:23 Greater trochanteric pain syndrome 7969369 M70.62 [id number] Donald Gatica MD Main Office [address] [facility] [address] [facility] [place] [address] 01/15/2017 14:16:44 01/15/2017 14:38:09 Needs influenza immunization 757089997 Z23 [id number] Brigid RajendraKezia kevin Main Office [address] [facility] [address] [place] [address] 03/14/2017 13:05:50 03/14/2017 14:02:21 Adult health examination 960681513 Z00.00 Had pap this summer, UTD on flu shot, will schedule her mammo. Essential hypertension 32261043 I10 Well controlled on current medication s, she has enough HCTZ, refill provided on lisinopril . Hyperlipidemia 77191530 E78.5 Gastroesop hageal reflux disease 011991796 K21.9 Major depr essive disorder 019789413 F32.[address] Coleman, continue meds as directed Anxiety 16365631 F41.[address] Coleman, continue meds as directed Screening for malignant neoplasm of breast 129742871 Z12.39 Body mass index 30+ - obesity 234331743 Z68.32 [id number] Donald Gatica MD Main Office [address] [address] [place] [address] 05/14/2017 13:45:11 05/14/2017 15:19:55 Varicella vaccination 97349359 Z23 Pt requesting rx. Will pursue at local pharmacy. Acute sinusitis 02509615 J01.90 Pt will try nasal saline/sup portive tx and if symptoms persist or worsen then start abx. Common/ser ious potnential medication side effects discussed. Advised to call if no improvemen t. Low back strain 81273299 1 S39.012A exam c/w muscle spasm. WIll try PRN muscle relaxant and heat. Call inb/worse or if new symptoms develop. [id number] Donald Gatica MD Main Office [address] [facility] [address] [place] [address] 07/02/2017 13:47:39 07/02/2017 14:58:56 Postviral cough 851944152 R05 No abnormal findings on the exam. Pt. was reassured she has postviral /postflu fatigue and residual cough. ADvised on extra rest and fluids, cough meds PRN. Call office if wheezing, sob or fever. Malaise and fatigue 2830 53758 R53.83 [id number] Venita rubio Main Office [address] [facility] [address] [place], [place] [address] 09/17/2017 09:35:54 09/17/2017 10:40:38 Palpitations 48210102 R00.2 offered re-assuran ce - nl ekg, no evidence or suspicion for afib Anxiety 75944271 F41.9 pt had panic attack - encouraged pt that is the time to appropriat meaghan take sánchez. on a prn basis encouraged pt to google term 'mindfulne ss' Essential hypertension 92926560 I10 stable, cont meds as dir, encouraged pt to get her outstandin g labs done [id number] Donald Gatica MD Main Office [address] [facility] [address] [place], [place] [address] 01/01/2018 14:02:08 01/01/2018 15:12:33 Allergic conjunctivitis 746360122 H10.13 treated fot 10 days for bacterial conjunctiv itis in november with some relief but not gone. will tx for allergic conjunctiv itis with cromolyn. to call of no relief in 7 days. [id number] PARVEEN Bruno Main Office [address] [address] [place], [place] [address] 05/11/2018 14:22:23 05/12/2018 09:37:52 [id number] Marlee Edwards Main Office [address] [address] [place], [place] [address] 05/22/2018 10:48:13 05/22/2018 12:04:13 Adult health examination 939781131 Z00.00 Had pap this summer, UTD on flu shot, will schedule her mammo. Osteoarthritis of hip 23 9698691 M16.11 Hyperlipidemia 11809649 E78.5 Essential hypertension 10161067 I10 Well controlled on current medication s Restless legs 28580380 G 25.81 followed by sleep medicine and gets ropinirole from them History of total hysterectomy 024302063 Z90.710 Screening for malignant neoplasm of breast 496308320 Z12.39 Fatigue 25503449 R53.83 [id number] PARVEEN Bruno Main Office [address] [address] [place] [address] 06/03/2019 13:35:46 06/03/2019 14:33:27 Adult health examination 334124799 Z00.00 UTD on flu shot, mammo due in July Essential hypertension 05170151 I10 Well controlled on current medication s Hyperlipidemia 84018596 E78.5 Hepatitis C screening 41 0660469 Z11.59 Anxiety 25329857 F41.[address] Coleman, continue meds as directed Attention deficit hyperactivity disorder, predominantly inattentive type 21921200 F90.0 Major depr essive disorder 389951492 F33.[address] Coleman, will increase to 3 tabs of venlafaxin e and she will call to schedule with Dr. Coleman today. She can make further changes. encouraged patient to prioritize self care, take time for herself and look into chair exercises or swimming. Posterior rhinorrhea 758 84338 R09.82 Asthma 639205280 J45.90 [id number] PARVEEN Bruno [facility] [address] [address] [place] [address] 02/09/2020 12:02:15 02/09/2020 13:54:15 Asthma 882820945 J45.909 Exposure t o viral disease 2428241362 95601 Z03.818 cough, low grade temp, SOB, wheezing, chest heaviness headache, sore throat. Acute exac erbation of moderate persistent asthma 4717967598 26512 J45.41 hydration, rest, prednisone burst, albuterol as needed, quarantine until we have test results. tylenol/ ibuprofen as needed. if o2 sat drops below 90% or SOB worsens, fever, other concerning sx please go to ED. [id number] PARVEEN Bruno Main Office [address] [facility] [address] [place] [address] 06/06/2020 09:05:11 06/06/2020 09:57:03 Adult health examination 069557240 Z00.00 UTD on flu shot, mammo due in July [id number] PARVEEN Bruno Main Office [address] [place] [address] 08/31/2020 09:35:27 08/31/2020 10:25:54 Adult health examination 688151114 Z00.00 due for mammo and labs Anxiety 49276748 F41.[address] Coleman, continue meds as directed Major depr essive disorder 281707287 F33.[address] Coleman Essential hypertension 36801065 I10 Well controlled on current medication s Hyperlipidemia 19531987 E78.5 Hepatitis C screening 41 4089509 Z11.59 Attention deficit hyperactivity disorder, predominantly inattentive type 97056625 F90.[address] Coleman. takes 40mg in am, 40mg in pm she will discuss with dr coleman on 09/18 Asthma 303803223 J45.90 9 Refill provided on inhaler Osteoarthritis of hip 23 3294282 M16.11 Screening for malignant neoplasm of breast 270324869 Z12.39 [id number] Donald Gatica MD [facility] [address] [facility] [address] [facility] [place] [address] 10/07/2021 14:06:41 10/12/2021 14:02:07 COVID-19 245962654 U07.1 Based on duration of symptoms and comorbidit ies pt is a candidate for antiviral therapy. Common/ser ious potential side effects discussed. Advised to call if noted. Current isolation guidelines based on immunizati on status discussed as well as isolation if rebound infection occurs. Medication s reviewed and dosing adjusted as indicated with Paxlovid. Hyperlipidemia 16953609 E78.5 Advised to hold atorvastat in for 10 days. Chronic insomnia 1917374 04 F51.04 Advised to reduce trazodone dose by 1/2 for seven days. [id number] Marlee Turnervedo Main Office [address] [facility] [address] [facility] [place] [address] 07/18/2022 09:09:51 07/18/2022 10:03:37 Adult health examination 689740554 Z00.00 Due for mammo and labs, due for colo in November. No paps- does not have a cervix Anxiety 25414848 F41.9 Starting with a new psychiatri st July 25. has not taken lorazepam Major depr essive disorder 038295651 F33.1 Starting with a new psychiatri July 25. Essential hypertension 51804911 I10 repeat BP 122/86. taking meds as directed. Hyperlipidemia 35205269 E78.5 Attention deficit hyperactivity disorder, predominantly inattentive type 59207024 F90.0 takes 40mg in am, 40mg in pm, starting with new psychiatri Asthma 950829774 J45.90 9 Refill provided on inhaler Osteoarthritis of hip 23 6592483 M16.11 wants to wean off gabapentin - will decrease to 200mg daily x 14 days, then to 100mg daily x 14 days, then 100mg every other day x 7 days. Screening for malignant neoplasm of breast 039995734 Z12.39 Gastroesop hageal reflux disease 894937505 K21.9 omeprazole no longer covered, will try protonix Screening for malignant neoplasm of colon 327418720 Z12.11 Fatigue 86233753 R53.83 [id number] Monae Verma MD Main Office [address] [facility] [address] [facility] [place] [address] 02/01/2023 10:36:48 02/01/2023 11:19:04 COVID-19 422019495 U07.1 Tylenol OTC, not to exceed package [...] tmax 103 > go to nearest ED [id number] PARVEEN Bruno Main Office [address] [facility] [address] [facility] [place] [address] 10/23/2023 15:18:47 10/23/2023 16:17:02 Adult health examination 348252046 Z00.00 Due for mammo and labs, due for colo in November. No paps- does not have a cervix Major depr essive disorder 519248304 [facility]33.1 [facility] will discuss 11/10/23 at her appt. Essential hypertension 45232495 I10 taking meds as directed. Hyperlipidemia 26535530 E78.5 Attention deficit hyperactivity disorder, predominantly inattentive type 81953366 F90.0 takes 40mg in am, 40mg in pm, starting with new psychiatri st Asthma 022791081 J45.90 9 Refill provided on inhaler Osteoarthritis of hip 23 2750627 M16.11 Screening for malignant neoplasm of breast 978968079 Z12.39 Gastroesop hageal reflux disease 532092578 K21.9 Screening for malignant neoplasm of colon 144414973 Z12.11 Generalize d anxiety disorder 92207699 F41.[address], lamictal not helping, has a lot of stress. Herpes labialis 9259248 B00.1 Wilson's esophagus 3029 02899 K22.70 Moderate r ecurrent major depression 95814340 F33.1 Pain of le ft hip joint 6439783055 18525 M25.552 Health Concerns Section Related Observation LastModified by Organization Detai ls LastModified Time None Recorded Concern Status LastModified by Organization Details LastModified Time None Recorded Advance Directives Directive N: Payers Encounter Date Sequence Insurance Name Policy Number Policy Rogers Covered Member ID Rogers Member ID Guarantor Name 08/31/2020 2 [employer] - [employer] (PPO) [id number] 2 Temo Christos Roosevelt [id number] Stephanie Albert 10/07/2021 2 [employer] (PPO) [id number] 2 Temo Christos TownsendRoosevelt [id number] Stephanie Albert 07/18/2022 2 [employer] (PPO) [id number] 2 Temo T Roosevelt [id number] Stephanie Fountainon 07/18/2022 1 MEDICARE B-ND: [employer] Stephanie Roosevelt [id number] Stephanie Fountainon 02/01/2023 2 [employer] - [employer] - COMMONWEALTH INDEMNITY PLAN - [place] (INDEMNITY) [id number] 2 Temo Christos Roosevelt [id number] Stephanie Townsendafson 02/01/2023 1 MEDICARE B-[place]: [employer] Stephanie [place] [id number] Stephanie Townsendafson 10/23/2023 2 [employer] - [employer] - [employer] INDEMNITY PLAN - [place] (INDEMNITY) [id number] Temo Albert [id number] Stephanie Albert 10/23/2023 1 MEDICARE B-ND: [facility] Stephanie Albert [id number] Stephanie Albert Notes Date Note Type [...] brain for f/u meningioma. PARVEEN Bruno [address] [address], [place], [address], [facility] 08/31/2020 10:40:50 10/07/2021 text/html COVID-19 Symptom s September 2019Reported bypatient.COVID-19 Signs and Symptomsfever same; chills same Severity:mild Duration:symptoms lasting 1 days Onset/Timing:date of symptoms onset: (10/07/21) Associated Symptoms:no sputum production; no wheezing; no vomiting; no diarrhea; no change in mental status; no hypotension;fatigue;kenny dy aches Prior Labs and ImagingCOVID-19 nasopharyngeal swab (10/07/21) Donald Gatica MD [address] [address], [place], [address], [facility] 10/07/2021 14:31:31 07/18/2022 text/html [...] She is struggling with this. Marlee porter [facility] 07/23/2022 16:13:30 02/01/2023 text/html COVID-19 Symptom s [...] today.Has had covid vaccine. Monae Verma MD [address] [address], [place], [address], [facility] 02/01/2023 11:17:56 10/23/2023 text/html Generic HPI TemplateReported [...] she does not feel it is helping. [facility] appt 11/09 will discuss further. --Her [...] good lighting in the home Emir Zafar [facility] [address] [address], [place], [address], [facility] 10/23/2023 16:12:27 OBGyn Episode No OBEpisode recorded.
--- OUTSIDE RECORDS SUMMARY | 2024-08-19 15:23 | XMS_ITS | Data Portability ---
Author Organization [place] [facility] Address [address] [place] [address] Care Team Providers Care Career Services Representative Name Role Phone EMIR CHE Primary Care [...] been on antiviral and prednisone for the [place] Palsy, additional steroids may not be helpful. [...] By Organization Details Last Modified Time 05/18/2018 22126 -Please take antibiotics as prescribed -Follow up [...] Address Organization Details Recorded Time Hypertensive disorder [id number] Active 2018 MILA PARRA NP [address], [place], [address], [place] [facility] 9 10:59:28 Chronic back pain 785573523 Active 2018 MILA PARRA NP [address], [place], [address], [place] [facility] 9 10:59:35 Gatica's esophagus 997435953 Active 2018 MILA PARRA NP [address], [facility] [place], [address], [place] [facility] 9 10:59:40 Hyperlipidem ia 31231057 Active 2018 MILA PARRA NP [address], [place], [address], [place] [facility] 9 10:59:44 Problem [...] Status Former Smoker MILA PARRA, [facility] [address] [place], [address], [place] [facility] 05/18/2018 11:02:58 Within The [...] Response Diabetes N Coronary Artery Disease N High Cholesterol Y Pulmonary Embolism N Cancer N Stroke N Hypertension Y Depression N COPD N Asthma N Kidney Disease N Gynecological HistoryNo gynecological history recorded. Obstetrics History GPAL:G 0 P 0 0 0 0 Past Encounters Encounter ID Performer Location Encounter Start Date Encounter Closed Date Diagnosis/Indication Diagnosis SNOMED-CT Code Diagnosis ICD10 Code Diagnosis Note [id number] MILA PARRA NP [facility] [address] [place] [address] 05/18/2018 10:37:28 05/22/2018 18:52:51 Acute upper respiratory infection 61142199 J06.9 Otitis media 98469257 H6 6.92 start amoxicilli n 500mg TID PO X 7 days, #21 no refills Pain in face 19961577 R5 1 Health Concerns Section Related Observation LastModified by Organization Detai ls LastModified Time None Recorded Concern Status LastModified by Organization Details LastModified Time None Recorded Advance Directives Directive None Recorded Payers Encounter Date Sequence Insurance Name Policy Number Policy Rogers Covered Member ID Rogers Member ID Guarantor Name 05/18/2018 1 [facility] INDEMNITY [facility] [id number] Stephanie Albert [id number] Stephanie Albert Notes Date Note Type Note [...] well. MILA PARRA NP [address], [place], [address], [place] [facility] 05/18/2018 13:17:17 OBGyn Episode No OBEpisode recorded.
--- OUTSIDE RECORDS SUMMARY | 2024-08-19 15:23 | XMS_ITS | Clinical Summary ---
Author Organization Patient Business Ser [facility] Address [address] [place] [address] Care Team Providers Care Fare Collector Name Role Phone Paige Zafar Primary Care Provider [phone] Surgical History Surgery Date Site/Laterality Comments HYSTERECTOMY [...] drink = 0.6 oz pur e alcohol) Comments Unknown Sex and Gender Information Value Date Recorded Sex Assigned at Not on file Legal Sex Female 1:05 PM EDT Gender Identity Not on file [...] DTaP,Tdap,and Td Vaccines (1 - Tdap) 1976 Pneumococcal Vaccine: 50+ Ye ars (1 of 1 - PCV) 2007 Zoster Vaccines (1 of 2) 2007 Colorectal Cancer Screening: Colonoscopy 10/06/2020 Depression Screening 10/06/2020 Hepatitis C Screening 10/06/2020 Osteoporosis Screening (Bone Density Screening) 10/06/2020 Social Influencers of Health Screening 10/06/2020 Falls Risk Assessment 2022 COVID-19 Vaccine (1 - 2023-2 5 season) 2024 Influenza Vaccine (Season Ended) 2025 RSV Immunization Adult Patie nts (1 - 1-dose 75+ series) 2032 HIB [...] patient's age to complete this topic Meningococcal B Vaccine Aged Out No l onger eligible based on patient's age to complete this topic RSV Immunization Patients Un reed 20 months Aged Out No longer eligible b ased on patient's age to complete this topic Varicella Vaccines Aged Out No longer eligible based on patient's age to complete this topic Care Teams Fare Collector Relationship Specialty Start Date End Date Paige Zafar PA [address] [address] PCP - General Physician Car Pick Up Driver 12/17/16
== END 2024-08-19 12:35 | disposition home or self-care (01) ==
LOC: HO.HOSX 12:34
PROVIDERS: Visit Provider Orthopaedic Surgery
DX: Z13.89 Encounter for screening for other disorder (principal)

== ENCOUNTER 2025-02-24 14:37 | Outpatient (AMB) | payer MEDICARE, OTHER, SELFPAY ==
--- OUTSIDE RECORDS SUMMARY | 2003-04-25 01:00 | XMS_ITS | Encounter Summary ---
Author Organization [facility] Address [address] [place] [id number] Phone Care Team Providers Care Surveyor Oil Well Directional Name Role Phone Unavailable Primary Care Provider Unavailabl e Reason for Visit * MRI/CAT Scan - Closed Specialty Diagnoses / Procedures Referred By Contac t Referred To Contact Procedures CT Head Outside (No Interpretation) Lester Vela MD [address] [place], [place] [id number] [place] [address] Phone: tel: fax: [email or web address] Referral ID Status Reason Start Date Expiration Date Visits Re quested Visits Authorized [id number] Closed 06/04/2018 06/04/2019 1 1 Encounter Details Date Type Department Care Team (Late st Contact Info) Description 04/25/2003 Hospital Encounter [facility] [address] [place] [id number] Lester Vela MD [address] [place], [place] [address] [place] [address] [email or web address] Social History Tobacco Use Types Packs/Day Years Used Date Smoking Tobacco: Never Assessed Education Answer Date Recorded Are you interested in more education? Not on yady e 08/30/2022 Are you concerned about learning? Not on file 08/30/2022 No 08/30/2022 No 08/30/2022 Digital Access Answer Date Recorded No 09/30/2022 No 09/30/2022 Reliable internet access at home? Not on file 09/30/2022 Device with a working camera? Not on file Comments Unknown Sex and Gender Information Value Date Recorded Sex Assigned at Not on file Legal Sex Female 4:03 PM EST Gender Identity Not on file Sexual Orientation Not on file documented as of this encounter Plan of Treatment Not on file documented as of this encounter Procedures Procedure Name Priority Date/Time Associated Diagnosis Comments CT HEAD OUTSIDE (NO INTERPRETATION) Routine 04/25/2003 12:00 AM EST documented in this encounter Results * CT Head Outside (No Interpretation) (04/25/2003 12:00 AM EST) Narrative [facility] IMG INTERFACES - 06/04/2018 3:51 PM EST This study is for PACS storage only and not for interpretation. Lester Vela MD IMG OUTSIDE IMAGING W /OUT INTERPRETATION Final Result [facility] IMG INTERFACES documented in this encounter Visit Diagnoses Not on filedocumented in this encounter Additional Source Comments The information contained in this document represents components of the legal health record. It is not the complete legal health record.[facility]
--- NOTE | 2025-02-24 14:50 | MHC.OFFVIS ---
Intake Visit Reasons: Right knee pain Intake Note: Stephanie is a 69 year old female who presents with right knee pain. She describes her pain as achy in nature. She was given an injection into her right knee on 06/01/2024. She got fairly good relief from the injection temporarily. She wishes to hold off on surgery if at all possible. Allergies No Known Allergies Allergy (Verified 02/24/25 14:50) Medication List - Last Reviewed 02/24/25 by MAXI Lassiter albuterol sulfate 90 mcg/actuation inhalation atorvastatin 40 mg PO DAILY fluticasone propionate 50 mcg/actuation sprays intranasal hydrochlorothiazide 25 mg PO DAILY lamotrigine mg PO lisinopril 10 mg PO DAILY methylphenidate HCl 20 mg PO TID omeprazole 20 mg PO DAILY ropinirole mg PO trazodone 150 - 300 mg PO BEDTIME PRN PFSH Surgical History History of hip surgery Hx of left knee surgery Hx of shoulder surgery Hx of shoulder surgery (Unknown) Social History Patient Tobacco Use Status: Never used Tobacco Current occupational status: retired Current occupation: Left hand dominate Physical Exam Const Other: Well-nourished well-developed very friendly female awake alert and oriented x3 in no acute distress Extrem Other: Right knee examination shows a minimal effusion, palpable crepitus with range of motion, pain with range of motion, no instability Office Procedures AMB Joint Injection/Aspiration Joint Injection/Aspiration Primary Site: right knee Prep: site was prepped using aseptic technique Injected: 40 mg of, DepoMedrol, with 4 mL of and 1% plain lidocaine Procedure: The patient tolerated the procedure well Coding 29364 - Large joint Procedure code (CPT) selection complete Results Reviewed Results Reviewed: X-rays of the patient's right knee taken previously show joint space narrowing, subchondral sclerosis, no acute bony abnormalities Assessment & Plan Assessment & Plan (1) Arthritis of right knee: Code(s): M17.11 - Unilateral primary osteoarthritis, right knee Category: Medical (2) Right knee pain: Code(s): M25.561 - Pain in right knee Category: Medical Plan Ms. Albert presents with right knee pain due to degenerative joint disease. The risks and benefits of a right knee cortisone injection were discussed at length with the patient. The patient wished to proceed. She tolerated the injection well. She will continue with her home exercise program. She will contact me prior to her follow-up appointment in 3 months should any questions or concerns arise. I spent 20 minutes in reviewing the patient's records and imaging studies, seeing the patient and documenting in the medical record. Orders: Orders AMB Joint Injection/Aspiration 02/24/25 M17.11 - Unilateral primary osteoarthritis, right knee Coding Level of Care Code Est Pt Level 3 (45895) Complex EM visit Add On G2211 Diagnoses Arthritis of right knee M17.11 Right knee pain M25.561 CPT Codes Coding - 71968 Large joint: 43751 - Large joint ([id number])
--- OUTSIDE RECORDS SUMMARY | 2025-02-24 18:28 | XMS_ITS | Encounter Summary ---
Author Organization [facility] Address [address] [place] [address] Phone Care Team Providers Care Psychotherapist Name Role Phone Unknown, Unknown Primary Care Provider Delma staples Encounter Details Date Type Department Care Team (Late st Contact Info) Description 06/04/2018 Procedure Pass [facility] [address] [place] [address] Social History Tobacco Use Types Packs/Day Years Used Date Smoking Tobacco: Never Assessed Comments Unknown Sex and Gender Information Value Date Recorded Sex Assigned at Not on file Legal Sex Female 4:03 PM EST Gender Identity Not on file Sexual Orientation Not on file documented as of this encounter Plan of Treatment Not on file documented as of this encounter Visit Diagnoses Not on filedocumented in this encounter Care Teams Psychotherapist Relationship Specialty Start Date End Date Unknown, Unknown, PCP - General 05/11/18 documented as of this encounter Additional Source Comments The information contained in this document represents components of the legal health record. It is not the complete legal health record.[facility]
--- OUTSIDE RECORDS SUMMARY | 2025-02-24 18:28 | XMS_ITS | Clinical Summary ---
Author Organization [facility] Address [address] [place] [address] Care Team Providers Care Rn Social Services Name Role Phone Unavailable Primary Care Provider [...]
--- OUTSIDE RECORDS SUMMARY | 2025-02-24 18:28 | XMS_ITS | Clinical Summary ---
Author Organization [facility] Address [address] [place] [address] Care Team Providers Care Process Control Programmer Name Role Phone Paige Zafar Primary Care Provider [phone] Allergies No known active allergies Medications Medication [...] (DEXA Scan) 2022 COVID-19 Vaccine ( season) 2025 02/04/2021, 07/23/2020, 07/01/2020 Influenza Vaccine (#1) 2025 , 02/25/2020, 01/01/2019, Additional history exists RSV [...] age to complete this topic Care Teams Process Control Programmer Relationship Specialty Start Date End Date Paige Zafar PA [address] [address] PCP - General Physician Almond Blancher Operator 12/17/16
--- OUTSIDE RECORDS SUMMARY | 2025-02-24 18:28 | XMS_ITS | Data Portability ---
Author Organization [place] [facility] Address [address] [place] [address] Care Team Providers Care Poultry Trimmer Name Role Phone DARRENEMIR MCKEE Primary Care Provider Assessment Encounter Date Assessment [...] been on antiviral and prednisone for the [place] Palsy, additional steroids may not be helpful. [...] By Organization Details Last Modified Time 05/18/2018 92775 -Please take antibiotics as prescribed -Follow up [...] Address Organization Details Recorded Time Hypertensive disorder 58906683 Active 2018 MILA PARRA NP [address], [facility] [place], [address], [place] [facility] 9 10:59:28 Chronic back pain 114004789 Active 2018 MILA PARRA NP [address], [place], [address], [place] [facility] 9 10:59:35 Gatica's esophagus 906249211 Active 2018 MILA PARRA NP [address], [place], [address], [place] [facility] 9 10:59:40 Hyperlipidem ia 93194062 Active 2018 MILA PARRA NP [address], [place], [address], [place] [facility] 9 10:59:44 Problem Notes [...] in Arterial blood by Pulse oximetry Systolic And Diastolic Provider Name and Address Organization Details Last Updated DateTime 9 98.5 [degF] 100 /min 16 /min 97 % 97 % 144/78 mm[Hg] Not Available [facility] 9 11:05:23 Social History Question Answer Notes LastModified by Organizat ion Details LastModified Time Tobacco Smoking Status Former Smoker MILA PARRA, [facility] [address] [place], [address], [place] [facility] 05/18/2018 11:02:58 Within The [...] Coronary Artery Disease N High Cholesterol Y Cancer N Pulmonary Embolism N Stroke N Hypertension Y Asthma N COPD N Depression N Kidney Disease N Gynecological HistoryNo gynecological history recorded. Obstetrics History GPAL:G 0 P 0 0 0 0 Past Encounters Encounter ID Performer Location Encounter Start Date Encounter Closed Date Diagnosis/Indication Diagnosis SNOMED-CT Code Diagnosis ICD10 Code Diagnosis IMO Codes Diagnosis Note [id number] [facility] - [facility] [address] [facility] [place] [address] 05/18/2018 10:37:28 05/22/2018 18:52:51 Acute upper respiratory infection 23378199 J06.9 Otitis media 05689735 H6 6.92 start amoxicilli n 500mg TID PO X 7 days, #21 no refills Pain in face 86977949 R5 1 Health Concerns Section Related Observation LastModified by Organization Detai ls LastModified Time None Recorded Concern Status LastModified by Organization Details LastModified Time None Recorded Advance Directives Directive None Recorded Payers Insurance Date Sequence Insurance Name Policy Number Policy Rogers Covered Member ID Rogers Member ID Guarantor Name 05/18/2018 1 [employer] [place] [facility] [employer] (INDEMNITY) [id number] Stephanie Albert [id number] Stephanie Albert 05/18/2018 1 [employer] [place] [employer] [place] ([place]MN[place]) [id number] Stephanie Albert [id number] Stephanie Albert 05/18/2018 1 [employer] [place] [employer] [place]MN[place]) [id number] Stephanie Albert [id number] Stephanie Albert 05/18/2018 1 *SELF PAY* Stephanie Albert [id number] Stephanie Albert 05/18/2018 1 [employer] [place] [employer] [place] ([place]MN[place]) [id number] Stephanie Albert [id number] Stephanie Albert 05/26/2018 1 [employer] [place] [employer] [place] ([place]MN[place]) [id number] Stephanie Albert [id number] Stephanie Albert Notes Date Note Type Note [...] well. MILA PARRA NP [address], [place], [address], [place] [facility] 05/18/2018 13:17:17 OBGyn Episode No OBEpisode recorded.
--- OUTSIDE RECORDS SUMMARY | 2025-02-24 18:28 | XMS_ITS ---
Author Name [facility] Organization Unknown History of Medication Use Medication Directions Dispensed Refills Start Date End Date Stat us atorvastatinTakeNo d ate recordedNo form recordedNo frequency recordedNo route recordedNo set duration recordedNo set duration amount recordedactiveNo dosage strength recordedNo dosage strength units of measure recorded active methylphenidateTakeN o date recordedNo form recordedNo frequency recordedNo route recordedNo set duration recordedNo set duration amount recordedactiveNo dosage strength recordedNo dosage strength units of measure recorded active hydrochlorothiazideT akeNo date recordedNo form recordedNo frequency recordedNo route recordedNo set duration recordedNo set duration amount recordedactiveNo dosage strength recordedNo dosage strength units of measure recorded active ropiniroleTakeNo chcukie e recordedNo form recordedNo frequency recordedNo route recordedNo set duration recordedNo set duration amount recordedactiveNo dosage strength recordedNo dosage strength units of measure recorded active lisinoprilTakeNo chuckie e recordedNo form recordedNo frequency recordedNo route recordedNo set duration recordedNo set duration amount recordedactiveNo dosage strength recordedNo dosage strength units of measure recorded active venlafaxineTakeNo da te recordedNo form recordedNo frequency recordedNo route recordedNo set duration recordedNo set duration amount recordedactiveNo dosage strength recordedNo dosage strength units of measure recorded active Problems Problem Status Onset Date Problem Type Date of Resoluti on Source Left lower quadrant pain active 2023-06-18 [facility] Attention-deficit hyperactivity disorder, unspecified type active ProblemAct [facility] Hypertension active ProblemAct [facility] Depression active ProblemAct [facility] Anxiety disorder, unspecified active ProblemAct [facility] Restless legs syndrome active ProblemAct [facility] Encounters Encounter Type Encounter Reason Primary Diagnosis Location Date Ambulatory [facility] 06/24/2023 Ambulatory [facility] 03/26/2023 Ambulatory [facility] 02/19/2023 Ambulatory [facility] 01/15/2023 Ambulatory [facility] 12/23/2022 Care Team Organization Name Specialty Phone Email Start Date End Da te [facility] Not Found Primary Care 05/25/2023 [facility] 023 12/05/2024 [facility] 023 12/24/2022
--- OUTSIDE RECORDS SUMMARY | 2025-02-24 18:28 | XMS_ITS | Clinical Summary ---
Author Organization [facility] Address [address] [place] [address] Care Team Providers Care Safety Scientist Name Role Phone Timothy Rios Primary Care [...] 2) 2007 Bone Density 2022 COVID-19 Vaccine (1 - 2024-2 6 season) 2025 Influenza (#1) 2025 RSV (1 - 1-dose 75+ series) 2032 HPV Vaccine (No Doses Required) Completed Hep A Aged Out No longer eligi [...] Smear Discontinued Zoster (Zostavax) Discontinued Care Teams Safety Scientist Relationship Specialty Start Date End Date Timothy Rios PCP - General 12/09/22
--- OUTSIDE RECORDS SUMMARY | 2025-02-24 18:29 | XMS_ITS | Clinical Summary ---
Author Organization Patient Business Ser [facility] Address [address] [place] [address] Care Team Providers Care Comparator Operator Name Role Phone Sylvie Garrido Primary Care Provider Encounters Date Type Department Care Team Description 12/13/2024 Telephone Gastroenterology - [address] [place] [phone] Colin Hunt MD from Last 3 Months Surgical History Surgery Date Site/Laterality Comments HYSTERECTOMY [...] Date Last Done Comments Breast Cancer Screening 07/17/2020 07/17/2018 Cholesterol Screening (Lipid Panel) 10/06/2020 Hepatitis C Screening 10/06/2020 Medicare Annual Wellness Visit 10/06/2020 Social Influencers of Health Screening 10/06/2020 Falls Risk Assessment 2022 Osteoporosis Screening (Bone Density Screening) 10/28/2022 10/28/2012 Depression Screening 05/05/2024 COVID-19 Vaccine ( season) 2025 03/22/2024, 01/31/2022, 02/04/2021, Additional history exists Influenza Vaccine (#1) 2025 , 02/28/2023, 01/31/2022, Additional history exists Hypertension/CHF/CAD Annual BMP Blood Test 01/17/2025 Colorectal Cancer Screening: FIT-DNA (Cologuard) 11/05/2026 11/06/2023, 11/06/2023 DTaP,Tdap,and Td Vaccines (3 - Td or Tdap) 07/18/2032 07/18/2022, 12/14/2012 Zoster Vaccines Completed 02/25/2020, 01/01/2019 Pneumococcal Vaccine: 50+ Years Completed 07/18/2022, 01/21/2017 RSV Immunization Adult Patients Completed 02/28/2023 HIB Vaccines Aged Out No longer eligi [...] to complete this topic RSV Immunization Patients Under 20 months Aged Out No longer eligible based on patient's age to complete this topic Varicella Vaccines Aged Out No longer eligible based on patient's age to complete this topic Insurance MEDICARE [facility] Care Teams Comparator Operator Relationship Specialty Start Date End Date Sylvie Garrido PA [address] [address] PCP - General 12/13/24
--- OUTSIDE RECORDS SUMMARY | 2025-02-24 18:29 | XMS_ITS | Clinical Summary ---
Author Organization [facility] Address [address] [facility] [address] [place] [address] Phone Care Team Providers Care Optical Instrument Assembly Supervisor Name Role Phone Unknown, Unknown Primary Care Provider Delma staples Allergies No known active allergies Medications No known medications Active Problems No known active problems Social History Tobacco Use Types Packs/Day Years [...] on file Sexual Orientation Not on file Last Filed Vital Signs Vital Sign Reading Time Taken Comments Blood Pressure - - Pulse - - Temperature 36.8 C (98.2 F) 07/23/2016 12:34 PM EDT Respiratory Rate - - Oxygen Saturation - - Inhaled Oxygen Concentration - - Weight 78.5 kg (173 lb) 07/23/2016 12:34 PM EDT Height 165.1 cm (5' 5 ) 07/23/2016 12:34 PM EDT Body Mass Index 28.79 07/23/2016 12:34 PM EDT Plan of Treatment Health Maintenance Due Date Last Done Comments Adult Td,Tdap Booster 1957 LIPID PANEL 1957 DEPRESSION SCREENING 1969 SMOKING Hx and SMOKELESS TOBACCO SCREENING 1970 HEPATITIS C SCREENING 1975 MAMMOGRAM 1997 COLOGUARD 2002 COLONOSCOPY 2002 COLORECTAL CANCER SCREENING 2002 FIT TEST 2002 FOBT 2002 SIGMOIDOSCOPY 2002 VIRTUAL COLONOSCOPY 2002 PNEUMOCOCCAL VACCINES (50+ years) (1 of 1 - PCV) 2007 OSTEOPOROSIS SCREENING INITI AL (ONE-TIME) 2022 INFLUENZA VACCINE (#1) 2024 0, 01/01/2019, 03/04/2018 COVID-19 VACCINE (2 - 2024-2 6 season) 2025 07/23/2020 RSV VACCINE (1 - 1-dose 75+ series) 2032 ZOSTER VACCINES Completed 02/25/2020, 01/01/2019 HEPATITIS A VACCINES Aged Out No long er eligible based on patient's age to complete this topic HIB VACCINES Aged Out No longer eligi ble based on patient's age to complete this topic MENINGOCOCCAL VACCINES (ACWY) Aged Out No longer eligible based on patient's age to complete this topic MENINGOCOCCAL VACCINES (B) Aged Out N o longer eligible based on patient's age to complete this topic Medical Devices Not on file Insurance [employer] [facility] CHOICE CHOICE CHOICE CHOICE CHOICE CHOICE CHOICE CHOICE COMMUNITY CHOICE Care Teams Optical Instrument Assembly Supervisor Relationship Specialty Start Date End Date Unknown, Unknown, PCP - General 05/11/18 Additional Source Comments The information contained in this document represents components of the legal health record. It is not the complete legal health record.[facility]
--- OUTSIDE RECORDS SUMMARY | 2025-02-24 18:29 | XMS_ITS | Data Portability ---
Author Organization AMANDA Castro s, [address] Address [address] [place] [address] Assessment No assessment recorded. Plan of Treatment Reminders Order Date Submit Date Provider Last Modified By Organization Details Last Modified Time Details Appointments None recorded. Lab None recorded. Referral None recorded. Procedures None recorded. Surgeries None recorded. Imaging None recorded. Medication Orders Allergy Relief (fluticason e) 50 mcg/actuati on nasal spray,suspe nsion 2022 023 [id number], [address], [place], [address], 3 19:21:32 prednisone 20 mg tablet 2022 023 [id number] [address], [place], [address], 3 19:21:31 albuterol sulfate HFA 90 mcg/actuati on aerosol inhaler 2022 023 [facility] [address], [place], [address], 3 19:21:32 benzonatate 100 mg capsule 2022 023 [facility]17, [address], [place], [address], 3 19:21:32 Patient TargetsNo targets recorded. Patient Instructions Encounter Date Encounter Id Patient Instructions Last Modified By Organization Details Last Modified Time 12/22/2022 [id number] cough: care instructions Not available 12/22/2022 19:21:28 Patient instruct ed [...] You are not getting better as expected. Not available 12/22/2022 19:21:26 Reason for Referral None Reported. Problems Name Problem SNOMED Code Status Onset Date Resolution Date Notes Provider Name and Address Organization Details Recorded Time Hyperlipidemia 34675368 Active 2022 AMANDA Burgos - [facility] 18:37:29 Hypertensive disorder 71018705 Active 2022 ADIA porter PA - [facility] 3 18:37:34 Restless legs syndrome 60922276 Active 2022 ADIA porter PA - [facility] 3 18:37:39 Exercise-induce d asthma 08345920 Active 2022 AMANDA Burgos - [facility] 18:37:55 Problem Notes None recorded. Procedures Surgical History Date Name Laterality Status Provider Name and Address Organization Details Recorded Time procedure on knee completed [facility] - [facility] 12/22/2022 18:38:42 procedure on hip completed [facility] PA - [facility] 12/22/2022 18:38:52 procedure on shoulder completed [facility] PA - [facility] 12/22/2022 18:39:11 [...] Pulse oximetry Heart rate Body temperature Systolic And Diastolic Provider Name and Address Organization Details Last Updated DateTime 3 167.64 cm 25.5 kg/m2 09334.5 9 g 0 17 /min 100 % 100 % 76 /min 97.9 [degF] 153/89 mm[Hg] [facility] PA - [facility] 3 18:40:11 Social History Question Answer Notes LastModified by Organizat ion Details LastModified Time Tobacco Smoking Status Former Smoker AMANDA Burgos - [facility] 12/22/2022 18:38:14 When Did You Quit Smoking? 16+yearssinc elastcigaret te [email or web address] Information not available 12/22/2022 Have You Recently Traveled Abroad? No [email or web address] Information not available 12/22/2022 Sex: Unknown Functional Status Question Answer Note LastModified by Organizat ion Details LastModified Time Do you use any illicit or recreational drugs? No Information not available 12/22/2022 What is your level of alcohol consumption? Occasional Information not available 12/22/2022 Mental Status None recorded. Family History Nothing Reported. Medical History No medical history recorded. Gynecological History Statement/Question Response Is there any chance of ? No Obstetrics History GPAL:G 0 P 0 0 0 0 Past Encounters Encounter ID Performer Location Encounter Start Date Encounter Closed Date Diagnosis/Indication Diagnosis SNOMED-CT Code Diagnosis ICD10 Code Diagnosis IMO Codes Diagnosis Note [id number] [address] [place] [address] 2018 11:32:21 2018 12:21:38 [id number] [address] [place] [address] 04/13/2018 15:55:10 04/13/2018 17:12:50 [id number] [address] [place] [address] 02/21/2017 15:35:25 02/21/2017 16:51:22 [id number] [address] [place] [address] 04/16/2015 13:47:23 04/16/2015 15:39:47 [id number] [address] [place] [address] 05/06/2018 16:43:14 05/06/2018 17:35:59 [id number] [address] [place] [address] 03/17/2021 17:48:47 03/17/2021 18:50:23 [id number] [address] [place] [address] 09/02/2019 11:08:21 09/02/2019 11:52:06 [id number] [address] [place] [address] 06/01/2018 08:12:01 06/01/2018 09:52:26 [id number] [address] [place] [address] 10/05/2016 19:26:21 10/05/2016 19:42:32 [id number] [address] [place] [address] 12/05/2018 15:48:07 12/05/2018 17:08:43 [id number] [address] [place] [address] 06/09/2015 12:04:16 06/09/2015 13:10:05 [id number] [place] [address] 01/01/2019 15:22:45 01/01/2019 16:34:34 [id number] GOLDEN OBREGON MD [address] [place] [address] 12/22/2022 18:08:41 12/22/2022 19:22:02 Acute bronchitis 32408344 J20.9 Health Concerns Section Related Observation LastModified by Organization Detai ls LastModified Time None Recorded Concern Status LastModified by Organization Details LastModified Time None Recorded Advance Directives Directive None Recorded Payers Insurance Date Sequence Insurance Name Policy Number Policy Rogers Covered Member ID Rogers Member ID Guarantor Name 12/22/2022 1 [place]IC[place]: [employer] Stephanie E Roosevelt [id number] Stephanie Albert 12/23/2022 2 [employer] [employer] [id number] Temo Sher Roosevelt [id number] Stephanie Albert Notes Date Note Type Note Provider Name and Address Organization Details Recorded Time 12/23/19 23 text/ht ml CoughReported by PatientHPIFor quality, patient reportsharshanddrybut reportsintermittentandsymptoms worse with lying down. For severity, patient reportsworseningandpain with coughbut reportsmoderate. For timing, patient reportsworseningbut reportsgradual. For context, patient reportshistory of bronchitisbut reportspatient denies vapingandnon-smoker. For associated symptoms, patient reportshurts to breathbut reportsno fever,no chills,no chest pain,no heartburn,no nausea,no vomiting,no edema,no agitation,no wheezing, andno post nasal drip. For source of patient information, patient reportsinformation obtained from patient,patient arrived at urgent care ambulatory, andlearning styles: auditory. For duration, patient reportsconstantandsymptoms lasting over 2 weeks. For modifying factors, patient reportsat night. Tree Bowman NP [address] [place], [address], [place] - [facility] 12/22/2022 19:21:51 OBGyn Episode No OBEpisode recorded.
--- OUTSIDE RECORDS SUMMARY | 2025-02-24 18:29 | XMS_ITS | Data Portability ---
Author Organization [facility], Main Office Address [address] [facility] [address] [place] [id number] Care Team Providers Care Passenger Representative Name Role Phone [facility] OTHER HELENA MAK Seafood Harvester [phone] MARIJA GARCIA Client Care Manager KYLE SANTOS Physical Therapist VENKATA COLEMAN Neuropsychiatrist [phone] CAITIE GLASS Peanut Sheller TIM TUBBS Orthopedic Surgeon [phone] [facility] Commuter Train Operator [phone] BRIGID BOONE Phys. Med. [facility] Phys. Med. & Rehab [phone] JEANNA GOLDEN Psychiatrist JENNA GONZALEZ Primary Care Provider Unavailabl e Assessment Encounter Date Assessment Date Assessment LastModified by Organization Details LastModified Time 02/01/2023 02/01/2023 This service was provided using telemedicine. Patient consented to video & audio visit Patient was located in the [facility]. Provider was located in the office. No other persons participated in the telemedicine visit except for the patient unless otherwise indicated here. Total time of visit was 15 minutes. [email or web address] Not available 02/01/2023 11:17:43 12/13/2024 12/13/2024 This service was provided using telemedicine. Patient consented to video & audio visit Patient was located other than home in the [facility]. Provider was located in the office. No other persons participated in the telemedicine visit except for the patient unless otherwise indicated here. Total time of visit was 14 minutes. [email or web address] Not available 12/13/2024 17:22:42 Plan of Treatment Reminders Order Date Submit Date Provider Last Modified By Organization Details Last Modified Time Details Appointments None recor ded. Lab CMP, serum or plasm a 2024 025 RAMIRO [facility], [address], [address], [place], [place], [address], 06:08:09 TSH + free T4, serum 2024 025 RAMIRO [facility] (Centralized Electronic Ordering - All Locations), Patient Can Go To The Location Of Their Choice, [address] 06:08:07 lipid panel , serum 2024 025 RAMIRO [facility], [address], [address], [place], [place], [address], 06:08:09 CBC w/ auto diff 2024 025 RAMIRO [facility] (Centralized Electronic Ordering - All Locations), Patient Can Go To The Location Of Their Choice, [address] 06:08:08 CMP, serum or plasm a 2023 024 [email or web address] [facility], [address], [address], [place], [address], 5 10:16:23 lipid panel , serum 2023 024 [email or web address] [facility], [address], [address], [place], [address], 5 10:16:23 nonin vasiv e color ectal cance r DNA + occul t blood scree kevin, QL, stool 2023 024 [facility], [address], [address], [place], [address], 4 05:50:58 CMP, serum or plasm a 2022 023 [email or web address] [facility], [address] [facility], [facility], [place], [address], 3 14:10:15 lipid panel , serum 2022 023 [email or web address] [facility], [address] [place] [address], [facility], [place], [address], 3 14:10:15 TSH, serum or plasm a 2022 023 [email or web address] [facility], [address] [facility], [facility], [place], [address], 3 14:10:15 CBC w/ auto diff 2022 023 RAMIRO [facility], [address] [place] [address], [facility], [place], [address], 4 06:08:12 Referral gastr rex aguilera ist refer ral - hx of barre tts esoph bettina witho ut dyspl carie. was follo wing with [place]. looki ng to re-es tabli sh 2024 025 [facility], [address] [place], [address], 5 11:46:10 gastr rex aguilera ist refer ral - Needs colon cance r mabel rivera nt, last done 2012 023 [email or web address] [facility] Scheduling Department, [address] [place] [address], [address], 3 10:06:37 Procedures None recor ded. Surgeries None recor ded. Imaging MAMMO , antoni brown, bilat eral - Perfo rm Diagn ostic Mammo gram and Breas t Ultra sound if neede d / Perfo rm Ultra sound Guide d Aspir ation and/o r Breas t Biops y if warra nted 2024 025 [email or web address] [facility], [address], [address], [place], [address], 5 09:58:53 MAMMO , scree kevin, bilat eral - Perfo rm Diagn ostic Mammo gram and Breas t Ultra sound if neede d / Perfo rm Ultra sound Guide d Aspir ation and/o r Breas t Biops y if warra nted 2023 024 [email or web address] [facility] Orders, [address], [address], [place], [address], 4 16:17:02 MAMMO , scree kevin, bilat eral - Perfo rm Diagn ostic Mammo gram and Breas t Ultra sound if neede d / Perfo rm Ultra sound Guide d Aspir ation and/o r Breas t Biops y if [facility] nted 2022 023 [email or web address] [facility] Orders, [address], [address], [place], [address], 3 10:10:31 Medication Orders valac yclov ir 1 gram table t 2024 025 [facility]armacy #0517, [address], [place], [address], 5 09:54:11 atorv astat in 40 mg table t 2024 025 [facility]/Pharmacy #0552, [address], [place], [address], 5 09:54:11 albut antoinette sulfa te HFA 90 mcg/a ctuat ion aeros ol inhal er 2024 025 [facility]/Pharmacy #0517, [address], [place], [address], 5 09:54:12 loraz epam 0.5 mg table t 2024 025 [email or web address] [facility], [address], [place], [address], 5 11:01:13 lisin opril 10 mg table t 2024 025 [facility]/Pharmacy #0517, [address], [place], [address], 5 09:54:11 fluti karen e propi braeden 50 mcg/a ctuat ion nasal spray ,susp ensio n 2024 025 [facility], [address], [place], [address], 5 09:54:12 loraz epam 0.5 mg table t 2023 024 [facility], [address], [place], [address], 4 15:57:58 melox icam 15 mg table t 2023 024 [email or web address] [facility]/Pharmacy #0517, [address], [place], [address], 5 09:23:08 lisin opril 10 mg table t 2023 024 [facility]/Pharmacy #0517, [address], [place], [address], 4 15:57:56 omepr azole 20 mg capsu medrano layed relea se 2023 024 [facility]/Pharmacy #0517, [address], [place], [address], 4 16:02:51 valac yclov ir 1 gram table t 2023 024 [facility], [address], [place], [address], 4 15:57:59 atorv astat in 40 mg table t 2023 024 ATHENAFAX [facility]/Pharmacy #0517, [address], [place], [address], 4 16:10:00 albut antoinette sulfa te HFA 90 mcg/a ctuat ion aeros ol inhal er 2023 024 [facility]/Pharmacy #0517, [address], [place], [address], 4 15:57:59 Paxlo vid 300 mg (150 mg x 2)-10 0 mg table ts in a dose pack 2022 023 bsolivanhigeorgi os [facility]/Pharmacy #0517, [address], [place], [address], 4 15:32:51 Lauryn janet Perle s 100 mg capsu le 2022 023 [email or web address] os [facility]/Pharmacy #0517, [address], [place], [address], 4 15:32:19 panto prazo le 40 mg table t,del ayed relea se 2022 023 [facility] [address], [place], [address], 3 10:50:35 atorv astat in 40 mg table t 2022 023 [facility], [address], [place], [address], 3 10:47:58 gabap entin 100 mg capsu le 2022 023 emersonsolange juancarlos [facility]/Pharmacy #0517, [address], [place], [address], 10:48:45 albut antoinette sulfa te HFA 90 mcg/a ctuat ion aeros ol inhal er 2022 023 RAMIRO [facility]/Pharmacy #0517, [address], [place], [address], 09:46:20 hydro chlor othia zide 25 mg table t 2022 023 hiren nolasco [facility]/Pharmacy #0517, [address], [place], [address], 10:48:56 lisin opril 10 mg table t 2022 023 [email or web address] [facility]/Pharmacy #0517, [address], [place], [address], 4 15:56:09 Patient TargetsNo targets recorded. Patient Instructions Encounter Date Encounter Id Patient Instructions Last Modified By Organization Details Last Modified Time 07/18/2022 [id number] learning about colon cancer [email or web address] Not available 07/18/2022 09:47:49 call or return for worsening or concerns jthabet Not available 07/18/2022 09:48:35 02/01/2023 [id number] things to do when you have covid-19 ckokar Not available 02/01/2023 11:16:47 10/23/2023 [id number] depression treatment: care instructions jthabet Not available 10/23/2023 16:02:02 wilson's esophagus: care instructions jthabet Not available 10/23/2023 16:02:02 preventing falls: care instructions jthabet Not available 10/23/2023 15:57:52 well visit, over 65: care instructions jthabet Not available 10/23/2023 15:57:51 learning about colon cancer jthabet Not available 10/23/2023 15:57:51 Colorectal Cancer Screening: Care Instructions [email or web address] Not available 10/23/2023 16:01:36 To call or return for worsening or concerns jthabet Not available 09/24/2023 14:06:53 12/06/2024 [id number] preventing falls: care instructions Not available 12/06/2024 09:54:03 well visit, over 65: care instructions Not available 12/06/2024 09:54:03 12/13/2024 [id number] arthritis: care instructions acennerazzo Not available 12/13/2024 17:23:29 post-traumatic stress disorder (PTSD): care instructions acennerazzo Not available 12/13/2024 17:23:29 back care and preventing injuries: care instructions acennerazzo Not available 12/13/2024 17:23:29 getting back to normal after low back pain: care instructions acennerazzo Not available 12/13/2024 17:23:29 learning about relief for back pain acennerazzo Not available 12/13/2024 17:23:29 Reason for Referral Client Care Manager Referral for Screening for malignant neoplasm of colon Needs colon cancer screening, new patient, last done 2012 Referring Physician: Paige Zafar, Family Medicine, Encounter Date: 07/18/2022 Client Care Manager Referral for Wilson's esophagus 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 was following with GI in [place] years ago. looking to re-establish Referring Physician: Jenna Gonzalez Family Medicine, Encounter Date: 12/06/2024 Results Created Date Observation Date Name Description Value Unit Range Abnormal Flag Note LastModifiedBy Organization Detail LastModifiedTime 07/25/19 24 07/26/2023 CBC WITH DIFFE RENTI AL/PL ATELE T WBC 7.8 x10e3 /uL 3.4-10 .8 Not Available [facility] ([facility]) [address] [facility], [place], [address], 07/26/2023 06:08:12 07/25/19 24 07/26/2023 CBC WITH DIFFE RENTI AL/PL ATELE T RBC 4.24 x10e6 /uL 3.77-5 .28 Not Available [facility] ([facility]) [address] [facility], [place], [address], 07/26/2023 06:08:12 07/25/19 24 07/26/2023 CBC WITH DIFFE RENTI AL/PL ATELE T hemoglobin 12.4 g/dL 11.1-1 5.9 Not Available [facility] ([facility]) [address] [place], [address], 07/26/2023 06:08:12 07/25/19 24 07/26/2023 CBC WITH DIFFE RENTI AL/PL ATELE T hematocrit 36.9 % 34.0-4 6.6 Not Available [facility] ([facility]) [address] [place], [address], 07/26/2023 06:08:12 07/25/19 24 07/26/2023 CBC WITH DIFFE RENTI AL/PL ATELE T MCV 87 fL 79-97 Not Available [facility] ([facility]) [address] [place], [address], 07/26/2023 06:08:12 07/25/19 24 07/26/2023 CBC WITH DIFFE RENTI AL/PL ATELE T MCH 29.2 pg 26.6-3 3.0 Not Available [facility] ([facility]) [address] [place], [address], 07/26/2023 06:08:12 07/25/19 24 07/26/2023 CBC WITH DIFFE RENTI AL/PL ATELE T MCHC 33.6 g/dL 31.5-3 5.7 Not Available [facility] ([facility]) [address] [place], [address], 07/26/2023 06:08:12 07/25/19 24 07/26/2023 CBC WITH DIFFE RENTI AL/PL ATELE T RDW 12.4 % 11.7-1 5.4 Not Available [facility] ([facility]) [address] [facility], [place], [address], 07/26/2023 06:08:12 07/25/19 24 07/26/2023 CBC WITH DIFFE RENTI AL/PL ATELE T platelets 368 x10e3 /uL 150-45 0 Not Available [facility] ([facility]) [address] [facility], [place], [address], 07/26/2023 06:08:12 07/25/19 24 07/26/2023 CBC WITH DIFFE RENTI AL/PL ATELE T neutrophils 81 % not estab. Not Available [facility] ([facility]) [address] [facility], [place], [address], 07/26/2023 06:08:12 07/25/19 24 07/26/2023 CBC WITH DIFFE RENTI AL/PL ATELE T lymphs 14 % not estab. Not Available [facility] ([facility]) [address] [facility], [place], [address], 07/26/2023 06:08:12 07/25/19 24 07/26/2023 CBC WITH DIFFE RENTI AL/PL ATELE T monocytes 4 % not estab. Not Available [facility] ([facility]) [address] [facility], [place], [address], 07/26/2023 06:08:12 07/25/19 24 07/26/2023 CBC WITH DIFFE RENTI AL/PL ATELE T eos 1 % not estab. Not Available [facility] ([facility]) [address] [facility], [place], [address], 07/26/2023 06:08:12 07/25/19 24 07/26/2023 CBC WITH DIFFE RENTI AL/PL ATELE T basos 0 % not estab. Not Available [facility] ([facility]) [address] [place], [address], 07/26/2023 06:08:12 07/25/19 24 07/26/2023 CBC WITH DIFFE RENTI AL/PL ATELE T immature cells BAG ADJUSTER Not Available [facility] ([facility]) [address] [place], [address], 07/26/2023 06:08:12 07/25/19 24 07/26/2023 CBC WITH DIFFE RENTI AL/PL ATELE T neutrophils (absolute) 6.3 x10e3 /uL 1.4-7. 0 Not Available [facility] ([facility]) [address] [facility], [place], [address], 07/26/2023 06:08:12 07/25/19 24 07/26/2023 CBC WITH DIFFE RENTI AL/PL ATELE T lymphs (absolute) 1.1 x10e3 /uL 0.7-3. 1 Not Available [facility] ([facility]) [address] [place], [address], 07/26/2023 06:08:12 07/25/19 24 07/26/2023 CBC WITH DIFFE RENTI AL/PL ATELE T monocytes(ab solute) 0.3 x10e3 /uL 0.1-0. 9 Not Available [facility] ([facility]) [address] [place], [address], 07/26/2023 06:08:12 07/25/19 24 07/26/2023 CBC WITH DIFFE RENTI AL/PL ATELE T eos (absolute) 0.1 x10e3 /uL 0.0-0. 4 Not Available [facility] ([facility]) [address] [place], [address], 07/26/2023 06:08:12 07/25/19 24 07/26/2023 CBC WITH DIFFE RENTI AL/PL ATELE T baso (absolute) 0.0 x10e3 /uL 0.0-0. 2 Not Available [facility] ([facility]) [address] [facility], [place], [address], 07/26/2023 06:08:12 07/25/19 24 07/26/2023 CBC WITH DIFFE RENTI AL/PL ATELE T immature granulocytes 0 % not estab. Not Available [facility] ([facility]) [address] [facility], [place], [address], 07/26/2023 06:08:12 07/25/19 24 07/26/2023 CBC WITH DIFFE RENTI AL/PL ATELE T immature grans (abs) 0.0 x10e3 /uL 0.0-0. 1 Not Available [facility] ([facility]) [address] [facility], [place], [address], 07/26/2023 06:08:12 07/25/19 24 07/26/2023 CBC WITH DIFFE RENTI AL/PL ATELE T NRBC BAG ADJUSTER Not Available [facility] ([facility]) [address] [facility], [place], [address], 07/26/2023 06:08:12 07/25/19 24 07/26/2023 CBC WITH DIFFE RENTI AL/PL ATELE T hematology comments: BAG ADJUSTER Not Available [facility] ([facility]) [address] [facility], [place], [address], 07/26/2023 06:08:12 07/25/19 24 07/26/2023 COMP. METAB OLIC PANEL (14) glucose 118 mg/dL 70-99 above high normal Not Available [facility] ([facility]) [address] [facility], [place], [address], 07/26/2023 06:08:13 07/25/19 24 07/26/2023 COMP. METAB OLIC PANEL (14) BUN 14 mg/dL 8-27 Not Available [facility] ([facility]) [address] [facility] [place], [address], 07/26/2023 06:08:13 07/25/19 24 07/26/2023 COMP. METAB OLIC PANEL (14) creatinine 0.66 mg/dL 0.57-1 .00 Not Available [facility] ([facility]) [address] [facility] [place], [address], 07/26/2023 06:08:13 07/25/19 24 07/26/2023 COMP. METAB OLIC PANEL (14) eGFR 97 mL/mi n/1.7 3 >59 Not Available [facility] ([facility]) [address] [facility] [place], [address], 07/26/2023 06:08:13 07/25/19 24 07/26/2023 COMP. METAB OLIC PANEL (14) BUN/creatini ne ratio 21 12-28 Not Available [facility] ([facility]) [address] [place] [place], [address], 07/26/2023 06:08:13 07/25/19 24 07/26/2023 COMP. METAB OLIC PANEL (14) sodium 140 mmol/ L 134-14 4 Not Available [facility] ([facility]) [address] [facility] [place], [address], 07/26/2023 06:08:13 07/25/19 24 07/26/2023 COMP. METAB OLIC PANEL (14) potassium 4.4 mmol/ L 3.5-5. 2 Not Available [facility] ([facility]) [address] [facility] [place], [address], 07/26/2023 06:08:13 07/25/19 24 07/26/2023 COMP. METAB OLIC PANEL (14) chloride 96 mmol/ L 96-106 Not Available [facility] ([facility]) [address] [facility], [place], [address], 07/26/2023 06:08:13 07/25/19 24 07/26/2023 COMP. METAB OLIC PANEL (14) anion gap 17.0 mmol/ L 10.0-1 8.0 Not Available [facility] ([facility]) [address] [place], [address], 07/26/2023 06:08:13 07/25/19 24 07/26/2023 COMP. METAB OLIC PANEL (14) carbon dioxide, total 27 mmol/ L 20-29 Not Available [facility] ([facility]) [address] [place], [address], 07/26/2023 06:08:13 07/25/19 24 07/26/2023 COMP. METAB OLIC PANEL (14) calcium 9.9 mg/dL 8.7-10 .3 Not Available [facility] ([facility]) [address] [place], [address], 07/26/2023 06:08:13 07/25/19 24 07/26/2023 COMP. METAB OLIC PANEL (14) protein, total 6.9 g/dL 6.0-8. 5 Not Available [facility] ([facility]) [address] [place], [address], 07/26/2023 06:08:13 07/25/19 24 07/26/2023 COMP. METAB OLIC PANEL (14) albumin 4.6 g/dL 3.9-4. 9 Not Available [facility] ([facility]) [address] [place], [address], 07/26/2023 06:08:13 07/25/19 24 07/26/2023 COMP. METAB OLIC PANEL (14) globulin, total 2.3 g/dL 1.5-4. 5 Not Available [facility] ([facility]) [address] [place], [address], 07/26/2023 06:08:13 07/25/19 24 07/26/2023 COMP. METAB OLIC PANEL (14) A/G ratio 2.0 1.2-2. 2 Not Available [facility] ([facility]) [address] [facility] [place], [address], 07/26/2023 06:08:13 07/25/19 24 07/26/2023 COMP. METAB OLIC PANEL (14) bilirubin, total 0.6 mg/dL 0.0-1. 2 Not Available [facility] ([facility]) [address] [facility] [place], [address], 07/26/2023 06:08:13 07/25/19 24 07/26/2023 COMP. METAB OLIC PANEL (14) alkaline phosphatase 131 IU/L 44-121 above high normal Not Available [facility] ([facility]) [address] [facility], [place], [address], 07/26/2023 06:08:13 07/25/19 24 07/26/2023 COMP. METAB OLIC PANEL (14) AST (SGOT) 34 IU/L 0-40 Not Available [facility] ([facility]) [address] [facility] [place], [address], 07/26/2023 06:08:13 07/25/19 24 07/26/2023 COMP. METAB OLIC PANEL (14) ALT (SGPT) 45 IU/L 0-32 above high normal Not Available [facility] ([facility]) [address] [place] [place], [address], 07/26/2023 06:08:13 07/25/19 24 07/26/2023 LP+NO N-HDL MENDEZ STERO L cholesterol, total 180 mg/dL 100-19 9 Not Available [facility] ([facility]) [address] [place] [place], [address], 07/26/2023 06:08:14 07/25/19 24 07/26/2023 LP+NO N-HDL MENDEZ STERO L triglyceride s 106 mg/dL 0-149 Not Available [facility] ([facility]) [address] [place], [address], 07/26/2023 06:08:14 07/25/19 24 07/26/2023 LP+NO N-HDL MENDEZ STERO L HDL cholesterol 73 mg/dL >39 Not Available [facility] ([facility]) [address] [place], [address], 07/26/2023 06:08:14 07/25/19 24 07/26/2023 LP+NO N-HDL MENDEZ STERO L VLDL cholesterol griselda 19 mg/dL 5-40 Not Available [facility] ([facility]) [address] [place], [address], 07/26/2023 06:08:14 07/25/19 24 07/26/2023 LP+NO N-HDL MENDEZ STERO L LDL chol calc ([facility]) 88 mg/dL 0-99 Not Available [facility] ([facility]) [address] [place], [address], 07/26/2023 06:08:14 07/25/19 24 07/26/2023 LP+NO N-HDL MENDEZ STERO L non-HDL cholesterol 107 mg/dL 0-129 Not Available [facility] ([facility]) [address] [place], [address], 07/26/2023 06:08:14 07/25/19 24 07/26/2023 LP+NO N-HDL MENDEZ STERO L comment: BAG ADJUSTER Not Available [facility] ([facility]) [address] [place], [address], 07/26/2023 06:08:14 07/25/19 24 07/26/2023 TSH REFLE X TO T4F TSH 1.160 uIU/m L 0.450- 4.500 Not Available [facility] ([facility]) [address] [facility], [place], [address], 07/26/2023 06:08:14 11/06/19 24 11/06/2023 COLOG UARD cologuard result reportable NEGATI VE negati ve normal NEGAT DERRICK TEST RESUL T. A negat derrick Colog uard resul t indic ates a low likel ihood that a color ectal cance r (CRC) or advan adrianna adeno ma (fidelia omato us polyp s with more advan adrianna pre-m align ant featu res) is prese nt. The nemours foundation e that a perso n with a negat derrick Colog uard test has a color ectal cance r is less than 1 in 1500 (nega tive predi ctive value >99.9 %) or has an advan adrianna adeno ma is less than 5.3% (nega tive predi ctive value 94.7% ). These data are based on a prosp ectiv e cross -sect ional study of , 0 indiv [place]ual s [place] risk for color ectal cance r who were scree kt with both Colog uard and colon oscop y. (Elisa Ahuja et al, N Engl J Med 2014; 370(1 4):12 86-12 97) The ranjan l value (refe rence range ) for this assay is negat derrick. COLOG UARD RE-SC REEGABBI NG RECOM MENDA TION: Perio dic color ectal cance r scree kevin is an impor tant part of preve ntive healt hcare for asymp tomat ic indiv idual s at [place] risk for color ectal cance r. [...] ommen datio ns.ht ml.; Ferdinand FULLER, Latrell BAL, Bryant AgeeK, Color ectal Cance r Scree kevin: Recom menda tions for Physi cians and Patie nts from the U.S. Multi -Soci ety Task Force on Color ectal Cance r Scree Pam brown y 2017; 112:1 016-1 030. TEST DESCR IPTIO N: Burdick site algor ithmi c fatmata sis of stool DNA-b iomar kers with hemog lobin immun oassa y. [...] years or older , who are at [facility] for color ectal cance r (CRC) . Colog uard has been appro marlo for use by the U.[place]. FDA. The perfo rmanc e of Colog uard was estab lishe d in a cross secti onal study of [facility] adult s aged 50-84 . Colog uard perfo rmanc e in patie nts ages 45 to 49 years was estim ated by sub-g roup fatmata sis of near- age group s. Colon oscop ies perfo rmed for a posit derrick resul t may find as the most clini arcadio signi tong anne n: color ectal cance r [4.0% ], [...] of 10,00 0 indiv idual s at avera ge risk for color ectal cance r [...] uard perfo rmanc e data in a 10,00 0 patie nt pivot al study using colon oscop y as the refer ence metho d can be acces sed at the [facility]ollo wing locat ion: www.e xactl abs.c om/re estrella . Addit ional descr iptio n of the Colog uard test proce ss, warni ngs and preca ution s can be found at www.c evanu sg.c om. Not Available [facility] [address], [place], [address], 11/12/2023 05:50:58 12/11/19 25 12/11/2024 TSH+F REE T4 TSH 0.553 uIU/m L 0.450- 4.500 normal Not Available [facility] ([facility]) [address] [facility], [place], [address], 12/11/2024 06:08:07 12/11/1912/11/2024 TSH+F REE T4 T4,free(dire ct) 1.07 NG/dL 0.82-1 .77 normal Not Available [facility] ([facility]) [address] [facility], [place], [address], 12/11/2024 06:08:07 12/11/19 25 12/10/2024 CBC WITH DIFFE RENTI AL/PL ATELE T WBC 8.0 x10e3 /uL 3.4-10 .8 normal Not Available [facility] ([facility]) [address] [facility], [place], [address], 12/11/2024 06:08:08 12/11/19 25 12/10/2024 CBC WITH DIFFE RENTI AL/PL ATELE T RBC 4.03 x10e6 /uL 3.77-5 .28 normal Not Available [facility] ([facility]) [address] [place], [address], 12/11/2024 06:08:08 12/11/19 25 12/10/2024 CBC WITH DIFFE RENTI AL/PL ATELE T hemoglobin 11.2 g/dL 11.1-1 5.9 normal Not Available [facility] ([facility]) [address] [facility], [place], [address], 12/11/2024 06:08:08 12/11/19 25 12/10/2024 CBC WITH DIFFE RENTI AL/PL ATELE T hematocrit 35.7 % 34.0-4 6.6 normal Not Available [facility] ([facility]) [address] [facility], [place], [address], 12/11/2024 06:08:08 12/11/19 25 12/10/2024 CBC WITH DIFFE RENTI AL/PL ATELE T MCV 89 fL 79-97 normal Not Available [facility] ([facility]) [address] [place], [address], 12/11/2024 06:08:08 12/11/19 25 12/10/2024 CBC WITH DIFFE RENTI AL/PL ATELE T MCH 27.8 pg 26.6-3 3.0 normal Not Available [facility] ([facility]) [address] [place], [address], 12/11/2024 06:08:08 12/11/19 25 12/10/2024 CBC WITH DIFFE RENTI AL/PL ATELE T MCHC 31.4 g/dL 31.5-3 5.7 below low normal Not Available [facility] ([facility]) [address] [facility], [place], [address], 12/11/2024 06:08:08 12/11/19 25 12/10/2024 CBC WITH DIFFE RENTI AL/PL ATELE T RDW 13.7 % 11.7-1 5.4 Not Available [facility] ([facility]) [address], [place], [address], 12/11/2024 06:08:08 12/11/19 25 12/10/2024 CBC WITH DIFFE RENTI AL/PL ATELE T platelets 363 x10e3 /uL 150-45 0 normal Not Available [facility] ([facility]) [address] [facility], [place], [address], 12/11/2024 06:08:08 12/11/19 25 12/10/2024 CBC WITH DIFFE RENTI AL/PL ATELE T neutrophils 80 % not estab. normal Not Available [facility] ([facility]) [address] [facility], [place], [address], 12/11/2024 06:08:08 12/11/19 25 12/10/2024 CBC WITH DIFFE RENTI AL/PL ATELE T lymphs 10 % not estab. normal Not Available [facility] ([facility]) [address] [facility], [place], [address], 12/11/2024 06:08:08 12/11/19 25 12/10/2024 CBC WITH DIFFE RENTI AL/PL ATELE T monocytes 5 % not estab. normal Not Available [facility] ([facility]) [address] [facility], [place], [address], 12/11/2024 06:08:08 12/11/19 25 12/10/2024 CBC WITH DIFFE RENTI AL/PL ATELE T eos 4 % not estab. normal Not Available [facility] ([facility]) [address] [place], [address], 12/11/2024 06:08:08 12/11/19 25 12/10/2024 CBC WITH DIFFE RENTI AL/PL ATELE T basos 1 % not estab. normal Not Available [facility] ([facility]) [address] [facility], [place], [address], 12/11/2024 06:08:08 12/11/19 25 12/10/2024 CBC WITH DIFFE RENTI AL/PL ATELE T immature cells BAG ADJUSTER Not Available [facility] ([facility]) [address] [place], [address], 12/11/2024 06:08:08 12/11/19 25 12/10/2024 CBC WITH DIFFE RENTI AL/PL ATELE T neutrophils (absolute) 6.4 x10e3 /uL 1.4-7. 0 normal Not Available [facility] ([facility]) [address] [place], [address], 12/11/2024 06:08:08 12/11/19 25 12/10/2024 CBC WITH DIFFE RENTI AL/PL ATELE T lymphs (absolute) 0.8 x10e3 /uL 0.7-3. 1 normal Not Available [facility] ([facility]) [address] [place], [address], 12/11/2024 06:08:08 12/11/19 25 12/10/2024 CBC WITH DIFFE RENTI AL/PL ATELE T monocytes(ab solute) 0.4 x10e3 /uL 0.1-0. 9 normal Not Available [facility] ([facility]) [address] [place], [address], 12/11/2024 06:08:08 12/11/19 25 12/10/2024 CBC WITH DIFFE RENTI AL/PL ATELE T eos (absolute) 0.3 x10e3 /uL 0.0-0. 4 normal Not Available [facility] ([facility]) [address] [facility], [place], [address], 12/11/2024 06:08:08 12/11/19 25 12/10/2024 CBC WITH DIFFE RENTI AL/PL ATELE T baso (absolute) 0.0 x10e3 /uL 0.0-0. 2 normal Not Available [facility] ([facility]) [address] [facility], [place], [address], 12/11/2024 06:08:08 12/11/19 25 12/10/2024 CBC WITH DIFFE RENTI AL/PL ATELE T immature granulocytes 0 % not estab. Not Available [facility] ([facility]) [address] [facility], [place], [address], 12/11/2024 06:08:08 12/11/19 25 12/10/2024 CBC WITH DIFFE RENTI AL/PL ATELE T immature grans (abs) 0.0 x10e3 /uL 0.0-0. 1 Not Available [facility] ([facility]) [address] [facility], [place], [address], 12/11/2024 06:08:08 12/11/19 25 12/10/2024 CBC WITH DIFFE RENTI AL/PL ATELE T NRBC BAG ADJUSTER Not Available [facility] ([facility]) [address] [facility], [place], [address], 12/11/2024 06:08:08 12/11/19 25 12/10/2024 CBC WITH DIFFE RENTI AL/PL ATELE T hematology comments: BAG ADJUSTER Not Available [facility] ([facility]) [address] [facility], [place], [address], 12/11/2024 06:08:08 12/11/19 25 12/10/2024 COMP. METAB OLIC PANEL (14) glucose 89 mg/dL 70-99 normal Not Available [facility] ([facility]) [address] [place] [place], [address], 12/11/2024 06:08:09 12/11/19 25 12/10/2024 COMP. METAB OLIC PANEL (14) BUN 17 mg/dL 8-27 normal Not Available [facility] ([facility]) [address] [place] [place], [address], 12/11/2024 06:08:09 12/11/19 25 12/10/2024 COMP. METAB OLIC PANEL (14) creatinine 0.69 mg/dL 0.57-1 .00 normal Not Available [facility] ([facility]) [address] [place] [place], [address], 12/11/2024 06:08:09 12/11/19 25 12/10/2024 COMP. METAB OLIC PANEL (14) eGFR 95 mL/mi n/1.7 3 >59 normal Not Available [facility] ([facility]) [address] [place], [address], 12/11/2024 06:08:09 12/11/19 25 12/10/2024 COMP. METAB OLIC PANEL (14) BUN/creatini ne ratio 25 12-28 normal Not Available [facility] ([facility]) [address] [place], [address], 12/11/2024 06:08:09 12/11/19 25 12/10/2024 COMP. METAB OLIC PANEL (14) chloride 97 mmol/ L 96-106 normal Not Available [facility] ([facility]) [address] [place] [place], [address], 12/11/2024 06:08:09 12/11/19 25 12/10/2024 COMP. METAB OLIC PANEL (14) carbon dioxide, total 27 mmol/ L 20-29 normal Not Available [facility] ([facility]) [address] [place], [address], 12/11/2024 06:08:09 12/11/19 25 12/10/2024 COMP. METAB OLIC PANEL (14) calcium 9.6 mg/dL 8.7-10 .3 normal Not Available [facility] ([facility]) [address] [place], [address], 12/11/2024 06:08:09 12/11/19 25 12/10/2024 COMP. METAB OLIC PANEL (14) albumin 4.1 g/dL 3.9-4. 9 normal Not Available [facility] ([facility]) [address] [place], [address], 12/11/2024 06:08:09 12/11/19 25 12/11/2024 COMP. METAB OLIC PANEL (14) sodium 140 mmol/ L 134-14 4 normal Not Available [facility] ([facility]) [address] [place], [address], 12/11/2024 06:08:09 12/11/19 25 12/11/2024 COMP. METAB OLIC PANEL (14) potassium 4.2 mmol/ L 3.5-5. 2 normal Not Available [facility] ([facility]) [address] [place], [address], 12/11/2024 06:08:09 12/11/19 25 12/11/2024 COMP. METAB OLIC PANEL (14) protein, total 6.4 g/dL 6.0-8. 5 normal Not Available [facility] ([facility]) [address] [place], [address], 12/11/2024 06:08:09 12/11/19 25 12/11/2024 COMP. METAB OLIC PANEL (14) globulin, total 2.3 g/dL 1.5-4. 5 Not Available [facility] ([facility]) [address] [place] [place], [address], 12/11/2024 06:08:09 12/11/19 25 12/11/2024 COMP. METAB OLIC PANEL (14) bilirubin, total 0.3 mg/dL 0.0-1. 2 normal Not Available [facility] ([facility]) [address] [place] [place], [address], 12/11/2024 06:08:09 12/11/19 25 12/11/2024 COMP. METAB OLIC PANEL (14) alkaline phosphatase 83 IU/L 44-121 normal Not Available [facility] ([facility]) [address] [facility] [place], [address], 12/11/2024 06:08:09 12/11/19 25 12/11/2024 COMP. METAB OLIC PANEL (14) AST (SGOT) 18 IU/L 0-40 normal Not Available [facility] ([facility]) [address] [place] [place], [address], 12/11/2024 06:08:09 12/11/19 25 12/11/2024 COMP. METAB OLIC PANEL (14) ALT (SGPT) 17 IU/L 0-32 normal Not Available [facility] ([facility]) [address] [facility] [place], [address], 12/11/2024 06:08:09 12/11/19 25 12/11/2024 LIPID PANEL cholesterol, total 178 mg/dL 100-19 9 normal Not Available [facility] ([facility]) [address] [facility] [place], [address], 12/11/2024 06:08:09 12/11/19 25 12/11/2024 LIPID PANEL triglyceride s 94 mg/dL 0-149 normal Not Available [facility] ([facility]) [address] [place] [place], [address], 12/11/2024 06:08:09 12/11/19 25 12/11/2024 LIPID PANEL HDL cholesterol 66 mg/dL >39 normal Not Available [facility] ([facility]) [address] [facility], [place], [address], 12/11/2024 06:08:09 12/11/19 25 12/11/2024 LIPID PANEL VLDL cholesterol griselda 17 mg/dL 5-40 Not Available [facility] ([facility]) [address] [facility], [place], [address], 12/11/2024 06:08:09 12/11/19 25 12/11/2024 LIPID PANEL LDL chol calc ([facility]) 95 mg/dL 0-99 Not Available [facility] ([facility]) [address] [facility], [place], [address], 12/11/2024 06:08:09 12/11/19 25 12/11/2024 LIPID PANEL LDL calc comment: BAG ADJUSTER Not Available [facility] ([facility]) [address] [facility], [place], [address], 12/11/2024 06:08:09 08/08/19 24 08/08/2023 MRI, lumba r spine , w/o contr ast No observ ation record ed. [facility] [address] [place], [address], 08/08/2023 09:52:22 03/18/20 24 03/11/2024 CT, abdom en, w/wo contr ast No observ ation record ed. [email or web address] [facility] [address] [facility], [place], [address], 03/19/2024 10:00:42 Result Notes None recorded. Problems Name Problem SNOMED Code Status Onset Date Resolution Date Notes Provider Name and Address Organization Details Recorded Time Anxiety 97327505 Active Not Available [facility] 3 13:10:54 Major depressi ve disorder 502173395 Active Not Available [facility] 3 13:10:54 Post-tra umatic stress disorder 71855294 Active Not Available [facility] 3 13:10:54 Exposure to SARS-CoV -2 Completed 08/31/2020 Removal Reason: Problem added by user mando from the COVID-19 watch flag Paige Zafar, [facility] [address], [place], [address] , [facility] [place] 1 09:56:38 History of total hysterec maureen 079730468 Active 2007 Not Available [facility] 3 13:10:54 Total hysterec maureen with removal of both tubes and ovaries Active 2007 Not Available [facility] 3 13:10:54 Osteopen ia 122136615 Active 2012 Not Available [facility] 3 13:10:54 Attentio n deficit hyperact ivity disorder , predomin antly inattent derrick type 10748651 Active 2014 sees psychiat rist Not Available [facility] 3 13:10:54 Restless legs syndrome 48922513 Active 2016 Not Available [facility] 3 13:10:54 [facility]entia l hyperten emmy 66725210 Active 2016 Not Available [facility] 3 13:10:54 Hyperlip idemia 56991771 Active 2016 Not Available [facility] 3 13:10:54 Gastroes ophageal reflux disease without esophagi tis 564502733 Active 2016 Not Available [facility] 3 13:10:54 Asthma 685978127 Completed 201603/14/2017 Paige Zafar, [facility] [address], [place], [address] , [facility] [place] 2 14:03:10 Osteoart hritis of hip 034352166 Active 2016 end stage- Left hip Not Available [facility] 3 13:10:54 Spinal stenosis in cervical region 59744988 Active 2016 Not Available [facility] 3 13:10:54 Exercise -induced asthma 84290510 Active 2017 Not Available [facility] 3 13:10:54 Ex-smoke r 2212764 Active 2017 Not Available [facility] 3 13:10:54 Wilson' s esophagu s 389710327 Active 2019 Not Available [facility] 3 13:10:54 COVID-19 233393895 Completed 202110/29/2024 PAZ Ramon, [facility] 5 12:30:19 Asthma 233259947 Active 2021 Not Available [facility] 3 13:10:54 Fatigue 10555894 Active 2021 Not Available [facility] 3 13:10:54 Moderate recurren t major depressi on 50977861 Active 2022 Not Available [facility] 3 13:10:54 Insomnia 786976497 Active 2022 Not Available [facility] 3 13:10:54 Gastroes ophageal reflux disease 118549642 Active 2022 Not Available [facility] 3 13:10:54 Attentio n deficit hyperact ivity disorder , combined type 59731208 Active 2022 Not Available [facility] 3 13:10:54 Low back pain 854509614 Active 2022 Not Available [facility] 3 13:10:54 Herpes labialis 3434950 Active 2022 Paige Zafar, [facility] [address] [facility] [address], [place], [address] , [facility] [place] 3 13:40:27 Generali zed anxiety disorder 14126323 Active 2023 Paige Zafar, [facility] [address], [place], [address] , [facility] 4 15:56:41 Pain of left hip joint 27753219461 9100 Active 2023 PARVEEN Bruno [address] [facility] [address], [place], [address] , [facility], [place] 4 16:07:27 Problem Notes None recorded. Procedures Surgical History Date Name Laterality Status Provider Name and Address Organization Details Recorded Time 08/04/19 24 injection into lumbar epidural space completed Viry thacker MA [facility] 10/23/2023 15:35:13 08/04/19 24 injection of cortisone completed Viry thacker MA [facility] 10/23/2023 15:35:27 02/03/20 23 injection into lumbar epidural space completed Viry thacker MA [facility] 10/23/2023 15:35:06 06/10/19 23 Total knee arthroplasty completed Didi Mccormick [facility] 06/11/2022 08:39:13 04/11/20 22 arthroscopy of shoulder with excision of distal clavicle completed Didi Mccormick [facility] 04/19/2022 14:28:02 04/11/20 22 acromioplasty of shoulder completed Didi Mccormick [facility] 04/19/2022 14:28:21 04/09/20 22 Arthroscopic Surgery completed Chelsi Gaines MA [facility] 07/18/2022 09:22:34 02/03/20 20 endoscopy completed PARVEEN Bruno [address] [facility] [address], [place], [address], [facility], [place] 08/31/2020 10:04:13 01/15/20 19 Arthroscopic Surgery completed Solange Beatty [facility] 01/19/2019 09:34:21 07/18/19 19 Most Recent Mammogram completed Solange Beatty [facility] 07/23/2018 10:30:46 07/18/19 19 Mammogram screening completed Solangececilia Beatty [facility] 07/23/2018 10:30:38 02/03/20 18 injection of trigger points completed Anne-Marie Cheney [facility] 02/03/2018 14:31:58 07/11/19 18 Endoscopic us exam esoph completed Zaria Kessler [facility] 08/07/2017 12:03:24 11/02/19 17 Joint Injection completed Celio Casanova MD [address], [place], [address], [facility], [place] 11/01/2016 14:17:00 11/02/19 17 Corticosteroid Injection completed Celio Casanova MD [address] [facility] [address], [place], [address], [facility], [place] 11/01/2016 14:16:35 09/25/19 16 Arthroscopic Surgery completed Jess Santillan MA [facility] 08/06/2016 14:51:37 11/19/19 13 Date of Last Colonoscopy completed Viry thacker MA [facility] 05/14/2017 13:51:55 11/19/19 13 Colonoscopy completed Zaria Kessler [facility] 08/07/2017 12:05:23 10/29/19 13 Most Recent Bone Density completed Viry thacker MA [facility] 01/22/2017 11:46:38 10/29/19 13 Dxa bone density eda vrt fx completed Viry thacker MA [facility] 01/22/2017 11:46:28 05/05/19 08 Total hysterectomy completed Viry thacker MA [facility] 05/14/2017 13:52:34 Arthroscopic Surgery completed Jess Santillan MA [facility] 08/06/2016 14:52:00 Imaging Results None recorded. Procedure Notes None recorded. Medical Equipment None Reported. Allergies Allergen ID Allergen Name Allergen Category Reaction Reaction Severity Criticality Documentation Date Start Date Code Code System Note Provider Name and Address Organization Details Recorded Time 67700 No known allergy (situatio n) Not available Not available Not available Not available 03/17/2020 45121 6003 SNOMED Brigid Gallardo MA [facility], [facility] 2 15:24:06 No known drug allergies Medications Name [...] Available amoxicill in 500 mg capsule TAKE 4 CAPSULES BY MOUTH 1 HOUR PRIOR TO APPOINTM ENT 12/03 completed Not Available Not Available Not Available atorvasta [...] vir 1 gram tablet TAKE 2 TABLETS EVERY 12 HOURS BY ORAL ROUTE DIRECTED FOR 1 DAY, FOR COLD SORES. active Not Available Not Available No t Available hydrocodo ne 5 mg-acetam inophen 325 mg tablet TAKE 1 TABLET BY MOUTH EVERY 6 HOURS NEEDED FOR PAIN 07/18 completed Not Available Not Available Not Available methylphe nidate 20 mg tablet TAKE 2 TABLETS BY MOUTH EVERY DAY active Not Available Not Available No t Available meloxicam 15 mg tablet TAKE 1 TABLET BY MOUTH EVERY DAY DIRECTED FOR 90 DAYS 12/06 completed Not Available Not Available Not Available prednison e 20 mg tablet TAKE 2 [...] BY MOUTH EVERY MORNING AND 1 TABLET DAILY AT BEDTIME active Not Available Not Available [...] Not Available Not Available No t Available cephalexi n 500 mg capsule 02/08 completed [...] DAY FOR A TOTAL OF 6 DAYS 12/06 completed Not Available Not Available Not Available [...] 50 mcg/actua tion nasal spray,[employer] SPRAY 2 SPRAYS TWICE A DAY BY NASAL ROUTE DIRECTED FOR 90 DAYS. active Not Available Not Available No t [...] MOUTH EVERY 6 HOURS NEEDED FOR PAIN 12/06 completed Not Available Not Available Not Available [...] blood by Pulse oximetry Body temperature Systolic And Diastolic Provider Name and Address Organization Details Last Updated DateTime 3 163.2 cm 28.8 kg/m2 68832.2 1 g 85 /min 95 % 95 % 97.6 [degF] 147/79 mm[Hg] Chelsi [facility]aines [facility] 3 09:17:38 Date Recorded Body height Body mass index (BMI) Body weight Heart rate Oxygen saturation Oxygen saturation in Arterial blood by Pulse oximetry Body temperature Systolic And Diastolic Provider Name and Address Organization Details Last Updated DateTime 4 163.2 cm 27.6 kg/m2 08912.9 6 g 80 /min 98 % 98 % 97.7 [degF] 132/80 mm[Hg] Viry flores [facility] 4 15:31:45 Date Recorded Body height Body mass index (BMI) Body weight Heart rate Oxygen saturation Oxygen saturation in Arterial blood by Pulse oximetry Body temperature Systolic And Diastolic Provider Name and Address Organization Details Last Updated DateTime 5 163.83 cm 24.2 kg/m2 35428.7 1 g 83 /min 96 % 96 % 97.9 [degF] 125/75 mm[Hg] Charis carvalho MA [facility] 5 09:22:21 Date Recorded Body height Provider Name an d Address Organization Details Last Updated DateTime 02/01/2023 163.2 cm Gloria Haro MA [facility] 02/01/2023 10:47:14 Social History Question Answer Notes LastModified by Organizat ion Details LastModified Time Tobacco Smoking Status Former Smoker PAZ Butler, [facility] 08/06/2016 14:50:40 Do You Have An Advance Directive? No Information not available 10/07/2021 Is Blood Transfusion Acceptable In An Emergency? Yes Information not available 08/06/2016 What Is Your Level Of Caffeine Consumption? Moderate 1 Cup Coffee A Day Information not available 10/23/2023 How Much Tobacco Do You Chew? None Information not available 09/17/2017 What Type Of Diet Are You Following? REGULAR Information not available 08/06/2016 Which Illicit Or Recreational Drugs Have You Used? None [email or web address] Information not available 08/06/2016 When Did You Quit Smoking? 16+yearssinc elastcigaret te Information not available 10/23/2023 Do You Take [...] Date Of Your Most Recent Tobacco Screening? 12/06/2024 [email or web address] Information not available 12/06/2024 How Many Children Do You Have? 0 Information not available 08/06/2016 What Is Your Current Pack Years? 10packyears Information not available 10/23/2023 Are You Sexually Active? Yes basilio Information not available 03/14/2017 At What Age Did You Start Smoking Tobacco? 19 Quit At 38 Information not available 10/23/2023 Are You Passively Exposed To Smoke? No Information not available 08/06/2016 How Much Tobacco Do You Smoke? 0.5 PPD Information not available 08/06/2016 Do You Use Sunscreen Routinely? Yes Information not available 08/06/2016 How Many Years Have You Smoked Tobacco? 19 Information not available 10/23/2023 Sex: Unknown Functional Status Question Answer Note LastModified by Organizat ion Details LastModified Time Do you use any illicit or recreational drugs? No Information not available 07/18/2022 Do you or have you ever used any other forms of tobacco or nicotine? No Information not available 07/18/2022 What is your level of alcohol consumption? Occasional beer/rare Information not available 10/23/2023 Do you or have you ever used smokeless tobacco? Never used smokeless tobacco Information not available 06/03/2019 Are you currently employed? Yes retired Information not available 10/23/2023 Are you able to walk independently without assistance or assistive devices? YESWOREST Information not available 07/18/2022 Are you able to care for yourself independently? Yes sister; Stacy Information not available 09/17/2017 What is your occupation? former [employer] works as a [employer] Information not available 10/23/2023 Do you or have you ever used e-cigarettes or vape? Never used electronic cigarettes Information not available 10/07/2021 What is your exercise level? Moderate walking [...] available 08/06/2016 14:37:49 Medical History Condition Response Other N Gout N Kidney Stones N Blood Diseases N Hyperthyroidism N Breast Cancer N Depression Y COPD N Lung Disease N Hypothyroidism N Developmental or Behavioral Disorders Y Defects or Inherited Disease N Breast Problem Y Anesthesia Complications N Headaches/Migraines N Anxiety Disorder Y Varicose Veins N Muscle, Joint, or Bone Problems Y Obesity N Vision or Eye Problems N Arthritis Y Head Injury/Concussion N Polyps N Infertility N Congenital Anomalies N Acid Reflux (GERD) Y Cancer N Stroke N ADHD Y Endometriosis N High Cholesterol Y Liver Disease N Fibromyalgia N Kidney Disease N Heart Problems N Ear or Hearing Problems N Hospitalizations N Thyroid Problems N GI Problems N Acne N Skin Problems N Eating Disorder N Anemia N Constipation N Bladder Problems N Mental Illness N Ovarian Cancer N Diabetes N Blood Transfusions N Seizures/Epilepsy N Tuberculosis N AIDS/HIV N Congestive Heart Failure (CHF) N Eczema N Diverticulitis N Abuse/Domestic Violence N Asthma N Allergies N Reflux/GERD Y [...] virus, quadrivalent, preservative 6 completed Sheyla porter [facility] 03/03/2023 08:53:10 Tdap 3 completed Sheyla porter [facility] 03/03/2023 08:53:10 Tdap 3 completed Sheylajai porter [facility] 03/03/2023 08:53:10 pneumococcal polysaccharide PPV23 7 completed Sheyla porter [facility] 03/03/2023 08:53:10 Influenza, split virus, quadrivalent, PF 9 completed Sheyla Navarro null, [facility] 03/03/2023 08:53:10 zoster recombinant 9 completed Sheyla Navarro null, [facility] 03/03/2023 08:53:10 COVID-19, mRNA, LNP-S, PF, 30 mcg/0.3 mL dose 1 completed Sheyla Navarro null, [facility] 03/03/2023 08:53:10 COVID-19, mRNA, LNP-S, PF, 30 mcg/0.3 mL dose 1 completed Sheyla Navarro null, [facility] 03/03/2023 08:53:10 zoster recombinant 0 completed Sheyla Navarro null, [facility] 03/03/2023 08:53:10 COVID-19, mRNA, LNP-S, PF, 30 mcg/0.3 mL dose 1 completed Sheyla Navarro null, [facility] 03/03/2023 08:53:10 Influenza, split virus, quadrivalent, PF 1 completed Sheyla Navarro null, [facility] 03/03/2023 08:53:10 Influenza, split virus, quadrivalent, PF 8 completed Sheyla Navarro null, [facility] 03/03/2023 08:53:10 Influenza, split virus, quadrivalent, PF 0 completed Sheyla Navarro null, [facility] 03/03/2023 08:53:10 Pneumococcal conjugate PCV20, polysaccharide [id number] conjugate, adjuvant, PF 3 completed Sheyla Navarro null, [facility] 03/03/2023 08:53:10 Tdap 3 completed Sheyla Navarro null, [facility] 03/03/2023 08:53:10 Influenza, MDCK, quadrivalent, PF 2 completed Sheyla Navarro null, [facility] 03/03/2023 08:53:10 COVID-19, mRNA, LNP-S, bivalent, PF, 30 mcg/0.3 mL dose 2 completed Sheyla Navarro null, [facility] 03/03/2023 08:53:10 Influenza, high-dose, quadrivalent, PF 3 completed Sheyla Navarro null, [facility] 03/03/2023 08:53:10 RSV, recombinant, protein subunit RSVpreF, adjuvant reconstituted, 0.5 mL, PF 3 completed Viry Browning MA null, [facility] 10/23/2023 15:32:04 COVID-19, mRNA, LNP-S, PF, jose-sucrose, 30 mcg/0.3 mL 4 completed Sheyla Navarro [place], [facility] 03/24/2024 09:23:58 Influenza, high-dose, trivalent, PF 4 completed Sheyla Navarro null, [facility] 03/24/2024 09:23:58 Influenza, split virus, quadrivalent, PF 7 completed Not Available [facility] 05/22/2019 02:22:11 Past Encounters Encounter ID Performer Location Encounter Start Date Encounter Closed Date Diagnosis/Indication Diagnosis SNOMED-CT Code Diagnosis ICD10 Code Diagnosis IMO Codes Diagnosis Note [id number] [facility]afar [facility] Main Office [address] [facility] [address] [place] [address] 08/06/2016 14:27:50 08/06/2016 16:01:33 Essential hypertension 14796064 I10 Well controlled on current medication s, she has eniugh HCTZ, refill provided on lisinopril . Hypercholesterolemia 136 14813 E78.00 Will check blood work, continue simvastati n as directed Restless l egs syndrome 39673562 G25.[address] Casanova, ad operations associate , I am not comfortabl e prescribin [...] this but agrees. Hypertrophy of breast 37 0888176 N62 Has an appt for consult in September and needs a referral and letter of medical necessity. Verbalizes back and neck pain, diff finding bras etc. Major depr essive disorder 071255674 F32.[address] Coleman, continue meds as directed Anxiety 17738229 F41.[address] Coleman, continue meds as directed Adult atte ntion deficit hyperactivity disorder 370683290 F90.[address] Coleman, continue meds as directed [id number] Paige Zafar [facility] Main Office [address] [address] [place] [address] 08/13/2016 14:08:08 08/13/2016 14:33:24 Upper respiratory infection 83610364 J06.9 sx treatment, hydration, rest, tylenol/ ibuprofen as needed. CXR today, azithro as prescribed . No driving or alcohol with cough med. [id number] Celio Casanova MD Main Office [address] [place] [address] 11/01/2016 13:36:29 11/01/2016 14:20:23 Greater trochanteric pain syndrome 7800728 M70.62 [id number] Paige Zafar [facility] Main Office [address] [place] [address] [place] [address] 01/15/2017 14:16:44 01/15/2017 14:38:09 Needs influenza immunization 063225539 Z23 [id number] Paige Zafar [facility] Main Office [address] [place] [address] [place] [address] 03/14/2017 13:05:50 03/14/2017 14:02:21 Adult health examination 070230324 Z00.00 Had pap this summer, UTD on flu shot, will schedule her mammo. Essential hypertension 81942029 I10 Well controlled on current medication s, she has enough HCTZ, refill provided on lisinopril . Hyperlipidemia 55347337 E78.5 Gastroesop hageal reflux disease 056877530 K21.9 Major depr essive disorder 098806600 F32.[address] Coleman, continue meds as directed Anxiety 16831204 F41.[address] Coleman, continue meds as directed Screening for malignant neoplasm of breast 589948614 Z12.39 Body mass index 30+ - obesity 140258348 Z68.32 [id number] Donald Gatica MD Main Office [address] [facility] [address] [place] [address] 05/14/2017 13:45:11 05/14/2017 15:19:55 Varicella vaccination 83665691 Z23 Pt requesting rx. Will pursue at local pharmacy. Acute sinusitis 47582459 J01.90 Pt will try nasal saline/sup portive tx and if symptoms persist or worsen then start abx. Common/ser ious potnential medication side effects discussed. Advised to call if no improvemen t. Low back strain 29914369 1 S39.012A exam c/w muscle spasm. WIll try PRN muscle relaxant and heat. Call inb/worse or if new symptoms develop. [id number] María Elena Tabares PA-C Main Office [address] [address] [place] [address] 07/02/2017 13:47:39 07/02/2017 14:58:56 Postviral cough 841332320 R05 No abnormal findings on the exam. Pt. was reassured she has postviral /postflu fatigue and residual cough. ADvised on extra rest and fluids, cough meds PRN. Call office if wheezing, sob or fever. Malaise and fatigue 5697 04243 R53.83 [id number] Dominic Tabares PA-C Main Office [address] [address] [place] [address] 09/17/2017 09:35:54 09/17/2017 10:40:38 Palpitations 84995246 R00.2 offered re-assuran ce - nl ekg, no evidence or suspicion for afib Anxiety 43982056 F41.9 pt had panic attack - encouraged pt that is the time to appropriat meaghan take sánchez. on a prn basis encouraged pt to google term 'mindfulne ss' Essential hypertension 81788358 I10 stable, cont meds as dir, encouraged pt to get her outstandin g labs done [id number] PARVEEN Bruno Main Office [address] [facility] [address] [place] [address] 01/01/2018 14:02:08 01/01/2018 15:12:33 Allergic conjunctivitis 909957247 H10.13 treated fot 10 days for bacterial conjunctiv itis in november with some relief but not gone. will tx for allergic conjunctiv itis with cromolyn. to call of no relief in 7 days. [id number] PARVEEN Bruno Main Office [address] [address] [place] [address] 05/11/2018 14:22:23 05/12/2018 09:37:52 [id number] Dario Burns MD Main Office [address] [address] [place] [address] 05/22/2018 10:48:13 05/22/2018 12:04:13 Adult health examination 025198235 Z00.00 Had pap this summer, UTD on flu shot, will schedule her mammo. Osteoarthritis of hip 23 3041514 M16.11 Hyperlipidemia 63807148 E78.5 Essential hypertension 23090415 I10 Well controlled on current medication s Restless l egs syndrome 92284289 G25.81 followed by sleep medicine and gets ropinirole from them History of total hysterectomy 106708446 Z90.710 Screening for malignant neoplasm of breast 783148259 Z12.39 Fatigue 80166410 R53.83 [id number] Dario Burns MD Main Office [address] [facility] [address] [place], [place] [address] 06/03/2019 13:35:46 06/03/2019 14:33:27 Adult health examination 749454422 Z00.00 UTD on flu shot, mammo due in July Essential hypertension 34375211 I10 Well controlled on current medication s Hyperlipidemia 76746053 E78.5 Hepatitis C screening 41 1333961 Z11.59 Anxiety 97120782 F41.[address] Coleman, continue meds as directed Attention deficit hyperactivity disorder, predominantly inattentive type 74520125 F90.0 Major depr essive disorder 563702894 F33.[address] Coleman, will increase to 3 tabs of venlafaxin e and she will call to schedule with Dr. Coleman today. She can make further changes. encouraged patient to prioritize self care, take time for herself and look into chair exercises or swimming. Posterior rhinorrhea 758 07961 R09.82 Asthma 575430684 J45.90 [id number] Dario Burns MD [facility] [address] [address] 02/09/2020 12:02:15 02/09/2020 13:54:15 Asthma 736234982 J45.909 Exposure t o viral disease 0568958239 26032 Z03.818 cough, low grade temp, SOB, wheezing, chest heaviness headache, sore throat. Acute exac erbation of moderate persistent asthma 6934122616 94868 J45.41 hydration, rest, prednisone burst, albuterol as needed, quarantine until we have test results. tylenol/ ibuprofen as needed. if o2 sat drops below 90% or SOB worsens, fever, other concerning sx please go to ED. [id number] Dario Burns MD Main Office [address] [address] 06/06/2020 09:05:11 06/06/2020 09:57:03 Adult health examination 432045524 Z00.00 UTD on flu shot, mammo due in July [id number] Dario Burns MD Main Office [address] [address] 08/31/2020 09:35:27 08/31/2020 10:25:54 Adult health examination 224145710 Z00.00 due for mammo and labs Anxiety 40125065 F41.[address] Coleman, continue meds as directed Major depr essive disorder 884119000 F33.[address] Coleman Essential hypertension 49831841 I10 Well controlled on current medication s Hyperlipidemia 00909927 E78.5 Hepatitis C screening 41 7351275 Z11.59 Attention deficit hyperactivity disorder, predominantly inattentive type 06089331 F90.[address] Coleman. takes 40mg in am, 40mg in pm she will discuss with dr coleman on 09/18 Asthma 265549201 J45.90 9 Refill provided on inhaler Osteoarthritis of hip 23 5871333 M16.11 Screening for malignant neoplasm of breast 517023631 Z12.39 [id number] Donald Gatica MD [facility] [address] [facility] [address] [facility] [address] 10/07/2021 14:06:41 10/12/2021 14:02:07 COVID-19 988758644 U07.1 Based on duration of symptoms and comorbidit ies pt is a candidate for antiviral therapy. Common/ser ious potential side effects discussed. Advised to call if noted. Current isolation guidelines based on immunizati on status discussed as well as isolation if rebound infection occurs. Medication s reviewed and dosing adjusted as indicated with Paxlovid. Hyperlipidemia 11887831 E78.5 Advised to hold atorvastat in for 10 days. Chronic insomnia 1821453 04 F51.04 Advised to reduce trazodone dose by 1/2 for seven days. [id number] Dario Burns MD Main Office [address] [facility] [address] [place] [address] 07/18/2022 09:09:51 07/18/2022 10:03:37 Adult health examination 944028465 Z00.00 Due for mammo and labs, due for colo in November. No paps- does not have a cervix Anxiety 58878823 F41.9 Starting with a new psychiatri July 25. has not taken lorazepam Major depr essive disorder 491875739 F33.1 Starting with a new psychiatri st July 25. Essential hypertension 99276275 I10 repeat BP 122/86. taking meds as directed. Hyperlipidemia 08445189 E78.5 Attention deficit hyperactivity disorder, predominantly inattentive type 90382556 F90.0 takes 40mg in am, 40mg in pm, starting with new psychiatri st Asthma 217698235 J45.90 9 Refill provided on inhaler Osteoarthritis of hip 23 2180268 M16.11 wants to wean off gabapentin - will decrease to 200mg daily x 14 days, then to 100mg daily x 14 days, then 100mg every other day x 7 days. Screening for malignant neoplasm of breast 742969796 Z12.39 Gastroesop hageal reflux disease 879363670 K21.9 omeprazole no longer covered, will try protonix Screening for malignant neoplasm of colon 316265965 Z12.11 Fatigue 12306539 R53.83 [id number] Monae Verma MD Main Office [address] [facility] [address] [place] [address] 02/01/2023 10:36:48 02/01/2023 11:19:04 COVID-19 705972803 U07.1 Tylenol OTC, not to exceed package [...] tmax 103 > go to nearest ED [id number] Dario Burns MD Main Office [address] [facility] [address] [place] [address] 10/23/2023 15:18:47 10/23/2023 16:17:02 Adult health examination 107630864 Z00.00 Due for mammo and labs, due for colo in November. No paps- does not have a cervix Major depr essive disorder 773398520 F33.1 [facility] she will discuss 11/10/23 at her appt. Essential hypertension 75420415 I10 taking meds as directed. Hyperlipidemia 29435599 E78.5 Attention deficit hyperactivity disorder, predominantly inattentive type 86357304 F90.0 takes 40mg in am, 40mg in pm, [facility] Asthma 679891164 J45.90 9 Refill provided on inhaler Osteoarthritis of hip 23 9239358 M16.11 Screening for malignant neoplasm of breast 510624351 Z12.39 Gastroesop hageal reflux disease 794255797 K21.9 Screening for malignant neoplasm of colon 141659290 Z12.11 Generalize d anxiety disorder 64598797 F41.[address], lamictal not helping, has a lot of stress. Herpes labialis 7561362 B00.1 Wilson's esophagus 3029 53997 K22.70 Moderate r ecurrent major depression 97887854 F33.1 Pain of le ft hip joint 1527582805 62729 M25.552 [id number] Dario Burns MD Main Office [address] [place] [address] 12/06/2024 09:05:38 12/06/2024 09:58:53 Adult health examination 505887860 Z00.00 Due for mammo and labs, cologuard negative, 2023. No paps- does not have a cervix. Major depr essive disorder 979795239 F33.[address] every 3 months Essential hypertension 35204605 I10 taking meds as directed. Hyperlipidemia 81965717 E78.5 Attention deficit hyperactivity disorder, predominantly inattentive type 05159568 F90.0 managing well Asthma 947201269 J45.90 9 Refill provided on inhaler Osteoarthritis of hip 23 8232554 M16.11 follows with [facility] Screening for malignant neoplasm of breast 478553843 Z12.39 Generalize d anxiety disorder 57383829 F41.[address] every 3 months, lamictal not helping, has a lot of stress. Moderate r ecurrent major depression 38649208 F33.1 Pain of le ft hip joint 1282132740 77797 M25.552 Herpes labialis 4940119 B00.1 Posterior rhinorrhea 758 70007 R09.82 Wilson's esophagus 3029 28752 K22.70 [id number] Dario Burns MD Main Office [address] [place] [address] 12/13/2024 15:32:54 12/24/2024 10:29:01 Post-traumatic stress disorder 03400993 F43.10 Followed by a ental health specialist . Low back pain 719699121 M54.50 Has been followed by pain mgmt [place] [facility] and receives regular steroid injections under fluoroscop y. Osteoarthritis 960432719 M19.90 [id number] Followed by [facility]. Health Concerns Section Related Observation LastModified by Organization Detai ls LastModified Time None Recorded Concern Status LastModified by Organization Details LastModified Time None Recorded Advance Directives Directive N: Payers Insurance Date Sequence Insurance Name Policy Number Policy Rogers Covered Member ID Rogers Member ID Guarantor Name 05/26/2019 1 [facility] (INDEMNITY) [id number] Temo Albert [id number] Stephanie Albert 02/01/2023 2 [facility] (PPO) [id number] Temo Albert [id number] Stephanie Albert 12/24/2024 2 [facility] (INDEMNITY) [id number] 2 Temo Albert [id number] Stephanie Albert 12/10/2024 1 MEDICARE B-[place]: [email or web address] Stephanie Albert [id number] Stephanie Albert Notes Date Note Type Note Provider Name and Address Organization Details Recorded Time 07/18/2022 text/html Generic HPI TemplateReported by [facility]Presents for PE. has lost weight, is trying- [...] She is struggling with this. Marlee porter [place] - [facility] [place] 07/23/2022 16:13:30 02/01/2023 text/html COVID-19 Symptom s September 2019Reported by PatientUpper Respiratory SymptomsFor covid-19 signs and symptoms, patient reportscough worsening,chills worsening,repeated shaking with chills worsening,muscle pain worsening,headache worsening,sore throat worsening, andfatigue worsening. For quality, patient reportsdry cough. For context, patient reportsasthma. For associated symptoms, patient reportsfatigue,runny nose, andbody aches. For contacts and exposure, patient reportspotential exposure in specific settings where covid-19 cases have been reported. For prior labs and imaging, patient reportscovid-19 nasopharyngeal swab. For suitability of residential setting, patient reportspatient does have caregiver at home,patient does have gloves and face masks available,patient does have members of the household at increased risk of complications,patient does have resources to access food and other necessities,patient does have separate bedroom and bathroom for patient, andpatient is able to adhere to hand hygiene and cough etiquette practices.Sx started yesterday, tested + today.Has had covid vaccine. Monae Verma MD [address], [address], [facility], [place] 02/01/2023 11:17:56 10/23/2023 text/html Medicare Annual Wellness VisitReported by PatientSocial/Behavior al HistoryFor diet and nutrition, patient reportshealthy diet. For fracture risk, patient reportsno history of fractures,no recent explained fracture,no sudden unexplained fractures, andno previous musculoskeletal injuries. For physical activity, patient reportsexercises on a regular basis,recent increase in physical activity, andgood physical condition.Mental Status:For depression risk, patient reportsnever feels sad, empty, or tearful,no loss of interest in activities,no significant changes in weight,no sleep disturbances or insomnia,no agitation,no loss of energy,no feelings of worthlessness or guilt,no thoughts of suicide,no history of depression, andno history of mood disorders. For orientation, patient reportsno disorientation to time,no disorientation to date, andno disorientation to place. For concentration and memory, patient reportsno decreased concentrating ability,no memory lapses or loss, anddoes not forget words. For speech/motor difficulties, patient reportsno speech difficulties,no difficulty expressing formulated concepts,no difficulty with fine manipulative tasks,no difficulty writing/copying,no slowed reaction time, anddoes not knock things over when trying to pick them up.Functional AbilityFor hearing, patient reportsno loss of hearing. For vision, patient reportsno vision problems. For activities of daily living, patient reportsable to bathe with limited or no assistance,able to contol urination and bowels,able to dress with limited or no assistance,able to feed self with limited or no assistance,able to get out of chair or bed with limited or no assistance,able to groom with limited or no assistance, andable to toilet with limited or no assistance. For instrumental activities of daily living, patient reportsable to do house work with limited or no assistance,able to grocery shop with limited or no assistance,able to manage medications with limited or no assistance,able to manage money with limited or no assistance,able to prepare meals with limited or no assistance, andable to use the phone with limited or no assistance. For falls risk assessment, patient reportsno frequent falls while walking,no fall in the past year,no fall since last visit, andno dizziness/vertigo. For home safety, patient reportsno unsafe ana hazzards,no unsafe stairs,no unsafe gas appliances,working smoke/co detectors,wears protective head gear for biking/high velocity,use of seatbelts,practicing 'safer sex',no vision or hearing loss while driving,no fire arms,has hand bars in the bathroom/shower, andgood lighting in the home. Generic HPI TemplateReported by [facility]Presents for PE. has lost weight, is trying- [...] she does not feel it is helping. Has appt 11/09 will discuss further. --Her brother at age 57 in January, found in the shower. - gets tingling in her feet, hx of mutliple surgeries left foot. - She does [employer] for a family 1 and 3yo a lot of work. EDUARDO BrunoUP [address] [facility] [address], [place], [address], [facility] 10/23/2023 16:12:27 12/06/2024 text/html Medicare Annual Wellness VisitReported by PatientSocial/Behavior al HistoryFor diet and nutrition, patient reportshealthy diet. For fracture risk, patient reportsno history of fractures,no recent explained fracture,no sudden unexplained fractures, andno previous musculoskeletal injuries. For physical activity, patient reportsexercises on a regular basis,recent increase in physical activity, andgood physical condition.Mental Status:For depression risk, patient reportsnever feels sad, empty, or tearful,no loss of interest in activities,no significant changes in weight,no sleep disturbances or insomnia,no agitation,no loss of energy,no feelings of worthlessness or guilt,no thoughts of suicide,no history of depression, andno history of mood disorders. For orientation, patient reportsno disorientation to time,no disorientation to date, andno disorientation to place. For concentration and memory, patient reportsno decreased concentrating ability,no memory lapses or loss, anddoes not forget words. For speech/motor difficulties, patient reportsno speech difficulties,no difficulty expressing formulated concepts,no difficulty with fine manipulative tasks,no difficulty writing/copying,no slowed reaction time, anddoes not knock things over when trying to pick them up.Functional AbilityFor hearing, patient reportsno loss of hearing. For vision, patient reportsno vision problems. For activities of daily living, patient reportsable to bathe with limited or no assistance,able to contol urination and bowels,able to dress with limited or no assistance,able to feed self with limited or no assistance,able to get out of chair or bed with limited or no assistance,able to groom with limited or no assistance, andable to toilet with limited or no assistance. For instrumental activities of daily living, patient reportsable to do house work with limited or no assistance,able to grocery shop with limited or no assistance,able to manage medications with limited or no assistance,able to manage money with limited or no assistance,able to prepare meals with limited or no assistance, andable to use the phone with limited or no assistance. For falls risk assessment, patient reportsno frequent falls while walking,no fall in the past year,no fall since last visit, andno dizziness/vertigo. For home safety, patient reportsno unsafe ana hazzards,no unsafe stairs,no unsafe gas appliances,working smoke/co detectors,wears protective head gear for biking/high velocity,use of seatbelts,practicing 'safer sex',no vision or hearing loss while driving,no fire arms,has hand bars in the bathroom/shower, andgood lighting in the home. Generic HPI TemplateReported by PatientPresents for PE. has lost weight, is trying- eating habits have changed. -follows with [facility] for an ablation and injections to the back- Has a lot going on. Her was diagnosed with dementia at age 85, she is caring for him, is having a lot of stress, anxiety.-follows with psychiatrist every 3 months-Her brother at age 57 in January, found in the shower.- gets tingling in her feet, hx of mutliple surgeries left foot.- She does [employer] for a family 2 and 4yo a lot of work.ROS as noted in the HPI AMANAD GRECO [address] [address], [place], [address], [facility] 12/06/2024 09:56:52 12/13/2024 text/html ROS as noted in the HPI She states that she is unable to work because of medical issues including PTSD, chronic low back pain, and extensive joint problems which have required 2 shoulder replacements, 2 knee replacements and 1 hip replacement. She is an outstanding student loan which she is unable to pay back because she is unable to work. She is a form that needs to be completed and signed by an MD. 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 Dario Burns MD [address] [address], [place], [address], [facility] 12/13/2024 17:26:46 OBGyn Episode No OBEpisode recorded.
--- OUTSIDE RECORDS SUMMARY | 2025-02-24 18:29 | XMS_ITS | Data Portability ---
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 The risks and benefits of the procedure were discussed in detail. She wishes to [...] . The risks and benefits of the procedure were discussed in detail. She wishes to [...] . The risks and benefits of the procedure were discussed in detail. She wishes to [...] . The risks and benefits of the procedure were discussed in detail. She wishes to [...] - Please schedule with patient 2023 024 [facility], [address] [place] [address] [place], [address], 09:38:55 Medication Orders None recorded. Patient TargetsNo targets recorded. Patient Instructions Encounter Date Encounter Id Patient Instructions Last Modified By Organization Details Last Modified Time 02/13/2023 [id number] She was advised against bed rest lasting longer than four days and to continue activities as tolerated. [email or web address] Not available 02/13/2023 09:53:54 09/03/2023 [id number] She was advised against bed rest lasting longer than four days and to continue activities as tolerated. [email or web address] Not available 09/03/2023 14:23:47 04/22/2024 [id number] She was advised against bed rest lasting longer than four days and to continue activities as tolerated. [email or web address] Not available 04/23/2024 09:35:55 07/28/2024 [id number] She was advised against bed rest lasting longer than four days and to continue activities as tolerated. [email or web address] Not available 07/28/2024 11:21:01 Reason for Referral None Reported. Results Created Date Observation Date Name Description Value Unit Range Abnormal Flag Note LastModifiedBy Organization Detail LastModifiedTime 08/08/19 24 08/08/2023 MRI, lumba r spine , w/o contr ast No observ ation record ed. [facility] Imaging Dept [address] [place], [address], 08/11/2023 11:07:26 Result Notes None recorded. Problems Name Problem SNOMED Code Status Onset Date Resolution Date Notes Provider Name and Address Organization Details Recorded Time Lumbar radiculopathy 736159604 Active 2022 Geovani lake MD [address] , [address], [place], [address], [place] [facility] 3 09:53:17 Degeneration of lumbar intervertebral disc 78276208 Active 2022 Geovani lake MD [address] , [address], [facility] [place], [address], [place] [facility] 3 09:53:18 Problem Notes None recorded. Procedures Surgical History Date Name Laterality Status Provider Name and Address Organization Details Recorded Time 07/29/19 25 Lumbar Epidural steroid injection under fluoroscopic guidance completed Geovani Sweeney MD [address] , [address], [place], [address], [place] [facility] 07/28/2024 11:21:16 04/22/20 24 Lumbar Epidural steroid injection under fluoroscopic guidance completed Geovani Sweeney MD [address] , [address], [place], [address], [place] [facility] 04/23/2024 09:37:38 09/03/19 24 Lumbar Epidural steroid injection under fluoroscopic guidance completed Geovani Sweeney MD [address] , [address], [place], [address], [place] [facility] 09/03/2023 14:24:31 02/14/20 23 Lumbar Epidural steroid injection under fluoroscopic guidance completed Geovani Sweeney MD [address] , [address], [place], [address], [place] [facility] 02/13/2023 09:53:03 05/05/19 23 Total knee arthroplasty completed Stephanie Vasquez [place] [facility] 01/30/2023 09:09:18 05/05/19 22 open reduction of dislocation of shoulder completed Stephanie Vasquez [place] [facility] 01/30/2023 09:10:11 05/05/19 18 Total hip arthroplasty completed Stephanie Vasquez [place] [facility] 01/30/2023 09:09:01 Imaging Results None recorded. Procedure Notes None recorded. Medical Equipment None Reported. Allergies No known drug allergies Medications Name Sig Start Date Stop Date Status Note LastModified by Organization Details LastModified Time amoxicillin 500 mg capsule TAKE 4 CAPSULES BY MOUTH 1 HOUR PRIOR TO APPOINTME NT active Not Available Not Available No t Available atorvastati n 40 mg tablet TAKE 1 [...] verbal numeric rating [Score] - Reported Systolic And Diastolic Provider Name and Address Organization Details Last Updated DateTime 4 165.1 cm 103 /min 97 % 97 % 9 148/101 mm[Hg] Marlenajustin Guevara o [place] [facility] 4 10:37:53 Date Recorded Body height Heart rate Oxygen saturation Oxygen saturation in Arterial blood by Pulse oximetry Pain severity - 0-10 verbal numeric rating [Score] - Reported Systolic And Diastolic Provider Name and Address Organization Details Last Updated DateTime 5 165.1 cm 88 /min 98 % 98 % 8 140/93 mm[Hg] Kristyn Fernando [place] [facility] 5 11:07:13 Date Recorded Body height Pain severity - 0-10 verbal numeric rating [Score] - Reported Oxygen saturation Oxygen saturation in Arterial blood by Pulse oximetry Heart rate Systolic And Diastolic Provider Name and Address Organization Details Last Updated DateTime 4 165.1 cm 10 97 % 97 % 88 /min 157/90 mm[Hg] Marlena Watsonjyoti o [place] [facility] 4 13:58:29 Date Recorded Body height Heart rate Oxygen saturation Oxygen saturation in Arterial blood by Pulse oximetry Systolic And Diastolic Provider Name and Address Organization Details Last Updated DateTime 3 165.1 cm 99 /min 99 % 99 % 178/98 mm[Hg] Kristyn Ibrahimtegan [place] [facility] 3 09:35:32 Date Recorded Body height Heart rate Oxygen saturation Oxygen saturation in Arterial blood by Pulse oximetry Pain severity - 0-10 verbal numeric rating [Score] - Reported Systolic And Diastolic Provider Name and Address Organization Details Last Updated DateTime 4 165.1 cm 83 /min 96 % 96 % 10 146/85 mm[Hg] Marlena Watsonjyoti o [place] [facility] 4 15:08:28 Social History Question Answer Notes LastModified by Organizat ion Details LastModified Time Tobacco Smoking Status Former Smoker Stephanie porter [place] [facility] 01/30/2023 09:05:18 Are You Blind Or Do You Have Difficulty Seeing? No [email or web address] Information n ot available 01/30/2023 In The 14 Days Before Symptom Onset, Have You Had Close Contact With A Laboratory-confirm ed COVID-19 While That Case Was Ill? No [email or web address] Information n ot available 01/30/2023 In The 14 Days Before Symptom Onset, Have You Had Close Contact With A Person Who Is Under Investigation For COVID-19 While That Person Was Ill? No [email or web address] Information not available 01/30/2023 Have You Been To An Area Known To Be High Risk For COVID-19? No [email or web address] Information not available 01/30/2023 Are You Deaf Or Do You Have Serious Difficulty Hearing? No [email or web address] Information not available 01/30/2023 What Is The Highest Grade Or Level Of School You Have Completed Or The Highest Degree You Have Received? BU37401-1 [email or web address] Information not available 01/30/2023 How Many Days Of Moderate To Strenuous Exercise, Like A Brisk Walk, Did You Do In The Last 7 Days? 4 [email or web address] Information not available 01/30/2023 On Those Days That You Engage In Moderate To Strenuous Exercise, How Many Minutes, On Average, Do You Exercise? 45 Information not available 01/30/2023 What Was The Date Of Your Most Recent Tobacco Screening? 01/30/2023 [email or web address] Information not available 01/30/2023 What Is Your Relationship Status? [email or web address] Information not available 01/30/2023 How Many Years Have You Smoked Tobacco? 20 [email or web address] Information not available 01/30/2023 Do You Have Difficulty Walking Or Climbing Stairs? Yes Information not available 01/30/2023 Sex: Female Functional Status Question Answer Note LastModified by Organizat ion Details LastModified Time Do you use any illicit or recreational drugs? No [email or web address] Information not available 01/30/2023 Do you or have you ever used any other forms of tobacco or nicotine? No [email or web address] Information not available 01/30/2023 What is your level of alcohol consumption? Occasional [email or web address] Information not available 01/30/2023 Are you currently employed? Yes [email or web address] Information not available 01/30/2023 Do you have difficulty doing errands alone? No [email or web address] Information not available 01/30/2023 What is your occupation? [email or web address] Information not available 01/30/2023 Do you have difficulty dressing, bathing, grooming, or toileting? No Information not available 01/30/2023 Mental Status Question Answer Note LastModified by Organizat ion Details LastModified Time Do you feel stressed (tense, restless, nervous, or anxious, or unable to sleep at night)? [id number] [email or web address] Information not available 01/30/2023 Do you have difficulty concentrating, remembering or making decisions? Yes ADHD on ritalin [email or web address] Information not available 01/30/2023 Family History Relationship Description Onset Age of this Age Resolved Age Notes LastModified by Organization Details LastModified Time Father No current problems or disability 50 85 cardia c, high trigly ceride s, spine pain [email or web address] Not available 01/30/2023 09:03:17 Mother No current problems or disability 67 afib, osteo arthri tis, htn [email or web address] Not available 01/30/2023 09:03:53 Medical History Condition [...] 30 mcg/0.3 mL dose, jose-sucrose 2 completed [facility] 01/30/2023 09:13:39 Respiratory syncytial virus (RSV) vaccine, unspecified 3 completed [facility] 07/21/2023 10:46:08 pneumococcal polysaccharide PPV23 3 completed Marlena porter [facility] 07/21/2023 10:46:34 influenza, unspecified formulation 3 completed Marlena porter [facility] 07/21/2023 10:47:11 Past Encounters Encounter ID Performer Location Encounter Start Date Encounter Closed Date Diagnosis/Indication Diagnosis SNOMED-CT Code Diagnosis ICD10 Code Diagnosis IMO Codes Diagnosis Note [id number] Geovani Sweeney MD PAIN OFFICE [address] [facility] [place] [address] 01/30/2023 08:45:16 01/30/2023 09:53:36 Lumbar radiculopathy 317655286 M54.16 Degenerati on of lumbar intervertebral disc 67431251 M51.36 [id number] Geovani Sweeney MD PAIN OFFICE [address] [facility] [place] [address] 02/13/2023 09:23:06 02/13/2023 13:41:28 Lumbar radiculopathy 664604594 M54.16 Degenerati on of lumbar intervertebral disc 17194598 M51.36 [id number] Geovani wSeeney MD PAIN OFFICE [address] [facility] [place] [address] 07/21/2023 10:30:27 07/21/2023 14:39:24 Lumbar radiculopathy 425652717 M54.16 Degenerati on of lumbar intervertebral disc 73674519 M51.36 [id number] Geovani Sweeney MD PAIN OFFICE [address] [facility] [place] [address] 09/03/2023 13:53:54 09/03/2023 14:33:37 Lumbar radiculopathy 330945163 M54.16 Degenerati on of lumbar intervertebral disc 25663059 M51.36 [id number] Geovani Sweeney MD PAIN OFFICE [address] [facility] [place] [address] 04/22/2024 14:57:19 04/23/2024 10:56:24 Lumbar radiculopathy 084563001 M54.16 Degenerati on of lumbar intervertebral disc 96444403 M51.362 [id number] Geovani Sweeney MD PAIN OFFICE [address] [facility] [place] [address] 07/28/2024 11:01:07 07/28/2024 15:49:28 Lumbar radiculopathy 845113023 M54.16 Degenerati on of lumbar intervertebral disc 52457995 M51.362 Health Concerns Section Related Observation LastModified by Organization Detai ls LastModified Time None Recorded Concern Status LastModified by Organization Details LastModified Time None Recorded Advance Directives Directive None Recorded Payers Insurance Date Sequence Insurance Name Policy Number Policy Rogers Covered Member ID Rogers Member ID Guarantor Name 07/21/2023 2 [employer] [place] [employer] [place] [id number] 2 Stephanie Roosevelt [id number] Stephanie Townsendafson 07/21/2023 2 [employer] [place] [id number] 2 Stephaniemychal Fountainon [id number] Stephanie Townsendafson 11/27/2024 1 [place] Stephanie Roosevelt [id number] Stephanie Roosevelt 11/27/2024 2 [employer] - [employer] INDEMNITY PLAN (MEDICARE SUPPLEMENT) [id number] 2 Stephanie Roosevelt [id number] Stephanie Townsendafson 07/21/2023 2 [employer] [place] [id number] 2 Stephanie Roosevelt [id number] Stephanie Roosevelt Notes Date Note Type Note Provider Name and Address Organization Details Recorded Time 02/13/2023 text/html She is here for a trial of lumbar epidural steroid injection under fluoroscopic guidance. Geovani Sweeney MD [address] [facility] [address], [place], [address], [facility] 02/13/2023 13:52:16 07/21/2023 text/html She is here for a follow up after a lumbar epidural steroid injection under fluoroscopic guidance on 02/13/2023. She reports some pain benefit. She has been doing prompt care rn with Dr. Khan. She has been having [...] or bowel incontinence. Geovani Sweeney MD [address] [facility] , [address], [place], [address], [place] [facility] 07/21/2023 16:12:51 09/03/2023 text/html She is here for a lumbar epidural steroid injection under fluoroscopic guidance. Geovani Sweeney MD [address] [facility] , [address], [place], [address], [place] [facility] 09/03/2023 14:35:16 04/22/2024 text/html She is here for a lumbar epidural steroid injection under fluoroscopic guidance.She states she has pain in left groin region. S/P left total hip replacement 5 years ago. Geovani Sweeney MD [address] [facility] [facility] [address], [place], [address], [place] [facility] 04/23/2024 11:08:50 07/28/2024 text/html She is here for a lumbar epidural steroid injection under fluoroscopic guidance. Geovani Sweeney MD [address] [facility] , [address], [place], [address], [place] [facility] 07/28/2024 15:55:22 OBGyn Episode No OBEpisode recorded.
== END 2025-02-24 15:04 | disposition home or self-care (01) ==
LOC: HO.HOS 14:38
PROVIDERS: Visit Provider Orthopaedic Surgery
DX: M17.11 Unilateral primary osteoarthritis, right knee (principal); M25.561 Pain in right knee
CPT/HCPCS: 20610; 99213

== ENCOUNTER → 2025-02-24 14:37 | Outpatient (BNVA) | payer MEDICARE, OTHER, SELFPAY | PROVIDERS: Visit Provider Orthopaedic Surgery | DX: M17.11 Unilateral primary osteoarthritis, right knee (principal); M25.561 Pain in right knee | CPT/HCPCS: 20610; 99212; J1010; J2003 ==